=== PATIENT | male | born 1980 | race Caucasian/White ===

== ENCOUNTER 2018-07-09 18:45 | Emergency (ER) | payer BC, SELFPAY ==
[2018-07-09 18:49] VITALS: BP 138/74; PULSE 57; RESP 22; TEMP 36.1; O2SAT 99
[2018-07-09 19:02] VITALS: BP 138/74; PULSE 57; RESP 22; TEMP 36.1; O2SAT 99
--- NOTE | 2018-07-09 19:38 | W.ED.GENAD ---
Discharge Plan Disposition Patient Disposition: HOME Condition: Good Discharge Details Chief Complaint: RashLesion Clinical Impression: Splinter Primary Care Provider: Jojo Elizondo ED Provider: Iraj Carr Home Meds and New Rx's Prescriptions: No Action omeprazole 40 MG capsule,delayed release(DR/EC) 40 mg PO DAILY RF: 0 vitamin B complex 1 EACH tablet 1 ea PO DAILY RF: 0 aspirin 81 MG tablet,delayed release (DR/EC) 81 mg PO DAILY RF: 0 vit d3 1 tab PO DAILY RF: 0 ibuprofen 800 MG tablet 800 mg PO TID PRNQty: 90 RF: 2 atenolol 50 MG tablet 50 mg PO DAILY Qty: 30 RF: 5 multivitamin 1 EACH capsule 1 ea PO DAILY RF: 0 calcium carbonate Tablet 300 mg DAILY Qty: 0 RF: 0 vitamin b12 1,000 MCG Tablet 1,000 mcg PO DAILY Qty: 90 RF: 0 Discharge Instructions Instructions: Soft Tissue Foreign Body (ED) Additional Instructions: Please apply triple antibiotic/bacitracin/neomycin to the red area. Please gently wash it with warm sudsy water 2-3 times per day. If you notice any spreading of the redness, fevers or chills please return immediately. If you notice any worsening of your symptoms, or any new symptoms such as vomiting, diarrhea, fever, chills, shortness of breath, chest pain, numbness, weakness, or fainting , please return immediately to the emergency department for reevaluation. Please follow up with your primary care provider as soon as possible for reassessment and reevaluation. As always, it was a pleasure participating in your medical care today. Referrals: Jojo Elizondo, [employer] [Primary Care Provider] - Medical Decision Making This is a 38-year-old male who presents for evaluation of foreign body in his left anterior inferior abdomen. Physical exam and evaluation and inspection revealed evidence of an injected/implanted splinter. It was easily removed with hemostats. No evidence of any infection or discharge. Triple antibiotic ointment was placed over the lesion. Bandage was placed. No need for antibiotics as there is no signs of infection. Tetanus is up-to-date. Patient will be discharged home. I have extensively reviewed the treatment plan and discharge instructions with the patient and their family. I have addressed all patient concerns at this time. The patient and family was made aware of what symptoms to monitor for that would warrant a return to the emergency department. Discussed the plan with the patient and family, they demonstrate verbal understanding and agreement with our assessment and plan at this time. HPI General Date/Time Provider Initiated Documentation: 07/09/18 18:58. HPI Narrative: This is a 38-year-old male with no significant past medical history who presents for evaluation of a lesion on his left anterior abdomen. He states that earlier this afternoon he noticed something funny on his belly, tried to pick it off but it did not easily come off. He was concerned that it may be a tick, and came into the ER for evaluation. He denies any systemic symptoms or any other symptoms. He denies any pain or rash at the site. He does note that he was moving in his docs yesterday and might have caused some trauma or abrasions to that area. Patient does have a history of tick exposure in the past, for which he did receive antibiotics. Patient denies any recent surgeries, pertinent family history or IV or illicit drug use. Related Data Home Medications Medication Instructions Recorded Confirmed multivitamin 1 ea PO DAILY 01/19/13 07/09/18 omeprazole 40 mg PO DAILY tab-cap 02/28/13 07/09/18 aspirin 81 mg PO DAILY 04/29/13 07/09/18 vitamin B complex 1 ea PO DAILY 04/29/13 07/09/18 Calcium Carbonate 300 mg DAILY #0 02/16/14 07/09/18 Vitamin B12 1,000 mcg PO DAILY #90 02/16/14 07/09/18 Vit D3 1 tab PO DAILY 04/19/15 07/09/18 ibuprofen 800 mg PO TID PRN #90 tab-cap 06/25/17 07/09/18 atenolol 50 mg PO DAILY #30 tab-cap 05/27/18 07/09/18 Previous Rx's Medication Instructions Recorded Calcium Carbonate 300 mg DAILY #0 02/16/14 Vitamin B12 1,000 mcg PO DAILY #90 02/16/14 atenolol 50 mg PO DAILY #30 tab-cap 05/27/18 Allergies Allergy/AdvReac Type Severity Reaction Status Date / Time No Known Allergies Allergy Unverified 07/09/18 18:52 General Stated Complaint: RashLesion GLORIA: 5 Review of Systems Review of Systems All systems reviewed & are unremarkable except as noted in HPI and below PFSH Family History Mother No problems noted. Father Hypertensive disorder, systemic arterial Obesity Medical History Hiatal hernia Social History Smoking/Tobacco Use Status: Former Tobacco Use Surgical History Bariatric Sleeve, [facility] 01/2013 L elbow and shoulder bone spur repair, Kirsty Ventral Hernia repair, [facility] 01/2013 Exam Narrative Exam Narrative: 1.Const: Well-nourished, Well-developed, appearing stated age 2.Eyes: PERRL, no conjunctival injection, and symmetrical lids. 3.ENT: Atraumatic external nose and ears. Moist MM. Neck: Symmetric, trachea midline, No thyromegaly. 4.CVS: +S1/S2, No murmurs or gallops. Peripheral pulses 2+ and equal in all extremities. Brisk capillary refill in all extremities. 5.RESP: Unlabored respiratory effort. Clear to auscultation bilaterally. No wheezes rales or rhonchi 6.GI: Soft, Nontender/Nondistended, No hepatosplenomegaly. No guarding or rebound. 7.MSK: Normocephalic/Atraumatic, Extremities w/o deformity or ttp No cyanosis or clubbing, Normal movement of all extremities 8.Skin: Warm, Dry. Over the patient's left anterior inferior abdomen there is a small lesion bruise and at the center of it appears to be a small foreign body. Inspection with probes and hemostats revealed that there appears to be a injected splinter in that area. It was easily removed with hemostats. No bleeding or other abnormalities. No redness or signs of infection. No discharge. 9.Neuro: gun numberer II-XII grossly intact. Sensation grossly intact, no focal neurologic deficits. 10.Psych: (AAO) x3. Appropriate mood and affect Course Vital Signs Temperature 36.1 C L 07/09/18 18:49 Pulse 57 L 07/09/18 18:49 Respiratory Rate 22 07/09/18 18:49 Blood Pressure 138/74 07/09/18 18:49 Pulse Oximetry 99 07/09/18 18:49 Temperature 36.1 C L 07/09/18 19:02 Temperature Source Skin 07/09/18 18:49 Pulse 57 L 07/09/18 19:02 Respiratory Rate 22 07/09/18 19:02 Respiratory Effort Non-Labored 07/09/18 18:50 Blood Pressure 138/74 10/18 19:02 Blood Pressure Position Sitting 07/09/18 18:49 Pulse Oximetry 99 07/09/18 19:02 Oxygen Delivery Method Room Air 07/09/18 18:49 Oxygen Flow Rate 0 07/09/18 18:49 Pain Level 0 07/09/18 19:02
--- NOTE | 2018-07-09 19:41 | ED.GENADUL_ITS ---
Discharge Plan Disposition Patient Disposition: HOME Condition: Good Discharge Details Chief Complaint: RashLesion Clinical Impression: Splinter Primary Care Provider: Jojo Elizondo ED Provider: Iraj Carr Home Meds and New Rx's Prescriptions: No Action omeprazole 40 MG capsule,delayed release(DR/EC) 40 mg PO DAILY RF: 0 vitamin B complex 1 EACH tablet 1 ea PO DAILY RF: 0 aspirin 81 MG tablet,delayed release (DR/EC) 81 mg PO DAILY RF: 0 vit d3 1 tab PO DAILY RF: 0 ibuprofen 800 MG tablet 800 mg PO TID PRNQty: 90 RF: 2 atenolol 50 MG tablet 50 mg PO DAILY Qty: 30 RF: 5 multivitamin 1 EACH capsule 1 ea PO DAILY RF: 0 calcium carbonate Tablet 300 mg DAILY Qty: 0 RF: 0 vitamin b12 1,000 MCG Tablet 1,000 mcg PO DAILY Qty: 90 RF: 0 Discharge Instructions Instructions: Soft Tissue Foreign Body (ED) Additional Instructions: Please apply triple antibiotic/bacitracin/neomycin to the red area. Please gently wash it with warm sudsy water 2-3 times per day. If you notice any spreading of the redness, fevers or chills please return immediately. If you notice any worsening of your symptoms, or any new symptoms such as vomiting, diarrhea, fever, chills, shortness of breath, chest pain, numbness, weakness, or fainting , please return immediately to the emergency department for reevaluation. Please follow up with your primary care provider as soon as possible for reassessment and reevaluation. As always, it was a pleasure participating in your medical care today. Referrals: Jojo Elizondo, [employer] [Primary Care Provider] - Medical Decision Making This is a 38-year-old male who presents for evaluation of foreign body in his left anterior inferior abdomen. Physical exam and evaluation and inspection revealed evidence of an injected/implanted splinter. It was easily removed with hemostats. No evidence of any infection or discharge. Triple antibiotic ointment was placed over the lesion. Bandage was placed. No need for antibiotics as there is no signs of infection. Tetanus is up-to-date. Patient will be discharged home. I have extensively reviewed the treatment plan and discharge instructions with the patient and their family. I have addressed all patient concerns at this time. The patient and family was made aware of what symptoms to monitor for that would warrant a return to the emergency department. Discussed the plan with the patient and family, they demonstrate verbal understanding and agreement with our assessment and plan at this time. HPI General Date/Time Provider Initiated Documentation: 07/09/18 18:58 . HPI Narrative: This is a 38-year-old male with no significant past medical history who presents for evaluation of a lesion on his left anterior abdomen. He states that earlier this afternoon he noticed something funny on his belly, tried to pick it off but it did not easily come off. He was concerned that it may be a tick, and came into the ER for evaluation. He denies any systemic symptoms or any other symptoms. He denies any pain or rash at the site. He does note that he was moving in his docs yesterday and might have caused some trauma or abrasions to that area. Patient does have a history of tick exposure in the past, for which he did receive antibiotics. Patient denies any recent surgeries, pertinent family history or IV or illicit drug use. Related Data Home Medications Medication Instructions Recorded Confirmed multivitamin 1 ea PO DAILY 01/19/13 07/09/18 omeprazole 40 mg PO DAILY tab-cap 02/28/13 07/09/18 aspirin 81 mg PO DAILY 04/29/13 07/09/18 vitamin B complex 1 ea PO DAILY 04/29/13 07/09/18 Calcium Carbonate 300 mg DAILY #0 02/16/14 07/09/18 Vitamin B12 1,000 mcg PO DAILY #90 02/16/14 07/09/18 Vit D3 1 tab PO DAILY 04/19/15 07/09/18 ibuprofen 800 mg PO TID PRN #90 tab-cap 06/25/17 07/09/18 atenolol 50 mg PO DAILY #30 tab-cap 05/27/18 07/09/18 Previous Rx's Medication Instructions Recorded Calcium Carbonate 300 mg DAILY #0 02/16/14 Vitamin B12 1,000 mcg PO DAILY #90 02/16/14 atenolol 50 mg PO DAILY #30 tab-cap 05/27/18 Allergies Allergy/AdvReac Type Severity Reaction Status Date / Time No Known Allergies Allergy Unverified 07/09/18 18:52 General Stated Complaint: RashLesion GLORIA: 5 Review of Systems Review of Systems All systems reviewed & are unremarkable except as noted in HPI and below PFSH Family History Mother No problems noted. Father Hypertensive disorder, systemic arterial Obesity Medical History Hiatal hernia Social History Smoking/Tobacco Use Status: Former Tobacco Use Surgical History Bariatric Sleeve, [facility] 01/2013 L elbow and shoulder bone spur repair, Kirsty Ventral Hernia repair, [facility] 01/2013 Exam Narrative Exam Narrative: 1.Const: Well-nourished, Well-developed, appearing stated age 2.Eyes: PERRL, no conjunctival injection, and symmetrical lids. 3.ENT: Atraumatic external nose and ears. Moist MM. Neck: Symmetric, trachea midline, No thyromegaly. 4.CVS: +S1/S2, No murmurs or gallops. Peripheral pulses 2+ and equal in all extremities. Brisk capillary refill in all extremities. 5.RESP: Unlabored respiratory effort. Clear to auscultation bilaterally. No wheezes rales or rhonchi 6.GI: Soft, Nontender/Nondistended, No hepatosplenomegaly. No guarding or rebound. 7.MSK: Normocephalic/Atraumatic, Extremities w/o deformity or ttp No cyanosis or clubbing, Normal movement of all extremities 8.Skin: Warm, Dry. Over the patient's left anterior inferior abdomen there is a small lesion bruise and at the center of it appears to be a small foreign body. Inspection with probes and hemostats revealed that there appears to be a injected splinter in that area. It was easily removed with hemostats. No bleeding or other abnormalities. No redness or signs of infection. No discharge. 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 Sensation grossly intact, no focal neurologic deficits. 10.Psych: (AAO) x3. Appropriate mood and affect Course Vital Signs Temperature 36.1 C L 07/09/18 18:49 Pulse 57 L 07/09/18 18:49 Respiratory Rate 22 07/09/18 18:49 Blood Pressure 138/74 07/09/18 18:49 Pulse Oximetry 99 07/09/18 18:49 Temperature 36.1 C L 07/09/18 19:02 Temperature Source Skin 07/09/18 18:49 Pulse 57 L 07/09/18 19:02 Respiratory Rate 22 07/09/18 19:02 Respiratory Effort Non-Labored 07/09/18 18:50 Blood Pressure 138/74 10/18 19:02 Blood Pressure Position Sitting 07/09/18 18:49 Pulse Oximetry 99 07/09/18 19:02 Oxygen Delivery Method Room Air 07/09/18 18:49 Oxygen Flow Rate 0 07/09/18 18:49 Pain Level 0 07/09/18 19:02
== END 2018-07-09 19:02 | disposition home or self-care (01) ==
LOC: ER 19:01
PROVIDERS: Emergency Provider Student in an Organized Health Care Education/Training Program; PCP Nurse Practitioner Family
DX: S30.851A Superficial foreign body of abdominal wall, initial encounter (principal); W45.8XXA Other foreign body or object entering through skin, initial encounter
CPT/HCPCS: 99282

== ENCOUNTER 2018-07-20 09:43 | Outpatient (CLI) | payer BC, SELFPAY ==
[2018-07-20 10:04] LABS: HCT 45.7 % (40.0-50.0); HGB 15.5 g/dL (13.5-17.5); Mean Corp. HGB Concentration 33.9 g/dL (32.0-36.0); Mean Corpuscular Hemoglobin 28.5 pg (27.0-33.0); Mean Platelet Volume 11.9 fL (8.0-11.0); Platelet Count 180 x1000/uL (130-400); RBC 5.44 m/cumm (4.50-6.00); RBC Distribution Width 13.3 % (11.8-14.1); White Blood Cell Count 5.51 k/cumm (4.4-10.8)
[2018-07-20 11:49] LABS: ALT 35 U/L (12-78); AST 17 U/L (15-37); Albumin 4.1 g/dL (3.4-5.0); Alkaline Phosphatase 98 U/L (46-116); Anion Gap 9.2 mmol/L (3-11); BUN 19 mg/dL (7-18); Bilirubin, Total 0.8 mg/dL (0.2-1.0); CO2 27.8 mmol/L (21.0-32.0); CREATININE 0.93 mg/dL (0.70-1.30); Calcium 8.5 mg/dL (8.5-10.1); Chloride 104 mmol/L (98-107); Cholesterol 170 mg/dL (50-200); Glucose 84 mg/dL (70-100); HDL Cholesterol 67 mg/dL (40-60); LDL CHOLESTEROL 97 mg/dL (<100); Potassium 4.3 mmol/L (3.5-5.1); Sodium 141 mmol/L (136-145); Total Protein 7.1 g/dL (6.4-8.2); Triglyceride 49 mg/dL (30-150)
== END 2018-07-20 10:03 ==
PROVIDERS: PCP Nurse Practitioner; Visit Provider Nurse Practitioner
DX: G43.909 Migraine, unspecified, not intractable, without status migrainosus (principal); E66.01 Morbid (severe) obesity due to excess calories
CPT/HCPCS: 36415; 80053; 80061; 83721; 85027; 84443

== ENCOUNTER 2018-07-22 11:24 | Emergency (ER) | payer BC, SELFPAY ==
[2018-07-22] VITALS (54 sets, daily range): BP systolic 115–141; BP diastolic 52–88; PULSE 0–72; RESP 10–30; TEMP 36.7; O2SAT 94–99
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
--- NOTE | 2018-07-22 11:52 | ED.GENADUL_ITS ---
Discharge Plan Disposition Patient Disposition: HOME Condition: Stable Discharge Details Chief Complaint: Chest Pain Clinical Impression: Pneumonia Primary Care Provider: Meche Rey ED Provider: aNbil Bauer Home Meds and New Rx's Prescriptions: New azithromycin 250 mg tablet 250 mg PO DAILY Qty: 6 RF: 0 No Action omeprazole 40 mg capsule,delayed release(DR/EC) 40 mg PO DAILY Qty: 90 RF: 3 ibuprofen 800 mg tablet 800 mg PO TID PRN (Reason: pain) Qty: 90 RF: 3 vitamin B complex 1 EACH tablet 1 ea PO DAILY RF: 0 aspirin 81 MG tablet,delayed release (DR/EC) 81 mg PO DAILY RF: 0 vit d3 1 tab PO DAILY RF: 0 atenolol 50 MG tablet 50 mg PO DAILY Qty: 30 RF: 5 multivitamin 1 EACH capsule 1 ea PO DAILY RF: 0 calcium carbonate tablet 300 mg DAILY Qty: 0 RF: 0 vitamin b12 1,000 MCG tablet 1,000 mcg PO DAILY Qty: 90 RF: 0 Discharge Instructions Instructions: Pneumonia (ED) Stand Alone Forms: Work Release Referrals: [facility] Emergency Dept. [Outside] - Return if symptoms worsen Discharge Data Discharge Date/Time-TO BE ENTERED AT DEPARTURE: 07/22/18 16:58 Medical Decision Making Explained to patient he would be here for awhile for the cardiac work up. Likely pneumonia but will check D-Dimer and BNP to evaluate for possible PE versus heart failure. Patient apprised of normal lab work except elevated D-Dimer. He agreed to CT for PE. Chest x-ray was benign and showed no acute pathology, confirmed by Dr. Soni. First trop was <0.02. Dr. Soni reported CT negative for PE but ground glass appearance which could be suspicious for consolidation. Labs not supportive of pneumonia but patient history does. Patient pending second trop. Apprised him and his of CT results and lab work. At this point he looks ill and I believe the lab work has not caught up. I will treat him for suggestive pneumonia with Zithromax. He and his agree to return if symptoms worsen. We started the Zithromax 500mg tonight. They agreed with POC. I called and talked with Javad. He tells me he has less SOB and able to walk long distances without the SOB. Does report increased runny nose with no fever or chills. He plans to take the rest of the week off. His only complaint is left shoulder pain. He explains he was hit in the left shoulder Sunday night and he ran a chain saw all day Sunday. He tells me his heart burn is gone. He asked about surgery for the left shoulder. He plans to go to [place] to see Dr. Haskins. He declines to go locally, or Dr. Lofton and ask if there is someone else besides him. I gave him Dr. Austin and [place]'s name. He agreed to return to ED if symptoms return or worsens. I advisedd he check in with his PCP and discuss another stress test. Imaging Data Radiologic Study: Imaging: X-Ray (No acute pathology. ) and CT Scan (Mild CHF vs multi- focal pneumonia. No evidence of pulmonary embolic disease. Heart enlarged. ) Radiologist's impression: Normal chest Lab Data Lab results reviewed: Yes I reviewed the patient's lab results. Lab results narrative: All values within acceptable limits except D-Dimer at 824. Troponin <0.02 times two, four hours apart. ECG Data Attestation: I personally reviewed and interpreted this ECG (s) as follows: ( Reviewed and confirmed by Dr. Márquez. No acute ST elevation. There are diffuse nonspecefic T wave abnormality. Rate and Rhythm are normal. ) HPI General Date/Time Provider Initiated Documentation: 07/22/18 11:29 . Limitations to Documentation: no limitations . Information obtained by: patient and old records reviewed . History of Present Illness 38 year old M presents to the emergency department with the chief complaint of SOB with left shoulder pain. , described as mild, with intensity rated at 3. Quality is described as aching, and is localized to the left (shoulder). Patient reports no radiation. Patient started experiencing this day(s) (2-3 ) No relieving factors improve symptom(s), Patient did receive the following treatments prior to arrival, none HPI Narrative: Patient seen by PCP today and PCP sent here for evaluation with concerns of ECG changes, pneumonia versus ACS. PCP reported to me patient c/o of sob and stated the ECG was changed since 2014. Patient did drive himself over to the ED against advisement. 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 He reports his daughter was sick last week as well with similar complaints. This illness began two nights ago with heart burn, fever, sob. His reminds him that he actually c/o cp at that time. He explains that it was more tightness from the sob, and he believed the heart burn was the issue. He is on PPI ever since he had the gastric sleeve surgery, which he lost over 150 lbs. He had missed his dose of PPI that morning. Today he reports SOB, fatigue, and left shoulder pain. Denies CP to me. Related Data Home Medications Medication Instructions Recorded Confirmed multivitamin 1 ea PO DAILY 01/19/13 07/22/18 aspirin 81 mg PO DAILY 04/29/13 07/22/18 vitamin B complex 1 ea PO DAILY 04/29/13 07/22/18 Calcium Carbonate 300 mg DAILY #0 02/16/14 07/22/18 Vitamin B12 1,000 mcg PO DAILY #90 02/16/14 07/22/18 Vit D3 1 tab PO DAILY 04/19/15 07/22/18 atenolol 50 mg PO DAILY #30 tab-cap 05/27/18 07/22/18 ibuprofen 800 mg tablet 800 mg PO TID PRN #90 tab-cap 07/10/18 07/22/18 omeprazole 40 mg capsule,delayed 40 mg PO DAILY #90 tab-cap 07/10/18 07/22/18 release azithromycin 250 mg PO DAILY #6 tab NS 07/22/18 Previous Rx's Medication Instructions Recorded Calcium Carbonate 300 mg DAILY #0 02/16/14 Vitamin B12 1,000 mcg PO DAILY #90 02/16/14 atenolol 50 mg PO DAILY #30 tab-cap 05/27/18 ibuprofen 800 mg tablet 800 mg PO TID PRN #90 tab-cap 07/10/18 omeprazole 40 mg capsule,delayed 40 mg PO DAILY #90 tab-cap 07/10/18 release azithromycin 250 mg PO DAILY #6 tab NS 07/22/18 Allergies Allergy/AdvReac Type Severity Reaction Status Date / Time No Known Allergies Allergy Unverified 07/22/18 11:43 General Stated Complaint: Chest Pain GLORIA: 2 Review of Systems Constitutional Reports as per HPI ENT Reports system reviewed and no additional complaints, except as docu and Reports nasal congestion Cardiovascular Denies chest pain, Reports edema (bilateral ankle swelling at the end of the day ), Reports leg edema and Reports dyspnea Respiratory Reports cough (mild and non productive) and Reports dyspnea Comments: Patient does have CPAP that he utilizes every night. Gastrointestinal Reports system reviewed and no additional complaints, except as docu Genitourinary Reports system reviewed and no additional complaints, except as docu Musculoskeletal Reports system reviewed and no additional complaints, except as docu Exam Const General: cooperative and no acute distress Nutritional Appearance: obese Orientation: alert, awake and oriented x3 HENMT Head: normal to inspection and atraumatic Mouth: oral mucosae normal Eyes General: appearance normal, both eyes and all related structures Neck Neck: normal visual inspection, full ROM and no lymphadenopathy Chest Chest: normal inspection of the chest Resp Effort & Inspection: normal respiratory effort Auscultation: crackles on the left (lower) at the base and in the mid lung reed Cardio Jugular venous pressure: no JVD Palpation: normal PMI Rate: regular rate Rhythm: regular rhythm Heart Sounds: S1 normal, S2 normal and no murmurs GI Inspection: normal to inspection and non-distended Palpation: soft Auscultation: normal bowel sounds Back/Spine/Pelvis Back: no CVA tenderness Cervical Spine: cervical ROM normal Thoracic/Lumbar Spine: thoracic and lumbar spine normal to inspection Skin General skin exam: no rashes or lesions noted Neuro General: alert, awake and oriented x3 Extrem General: full ROM, normal capillary refill and pedal edema bilaterally Left upper extremity: normal to inspection, full ROM and normal capillary refill Psych Appearance: grossly normal Speech and Movement: speech and movement normal Mood: congruent mood Affect: normal affect Attitude: cooperative Thought Process: normal Thought Content: normal Insight: insight good Judgment: judgment good Course Vital Signs Temperature 36.7 C 07/22/18 11:37 Pulse 62 07/22/18 11:37 Respiratory Rate 16 07/22/18 11:37 Blood Pressure 137/65 07/22/18 11:37 Pulse Oximetry 97 07/22/18 11:37 Temperature 36.7 C 07/22/18 11:37 Temperature Source Temporal Artery Scan 07/22/18 11:37 Pulse 62 07/22/18 11:37 Respiratory Rate 16 07/22/18 11:46 Respiratory Effort Non-Labored 07/22/18 11:46 Respiratory Depth Normal 07/22/18 11:46 Respiratory Pattern Normal 07/22/18 11:46 Blood Pressure 137/65 07/22/18 11:37 Blood Pressure Position Supine 07/22/18 11:37 Pulse Oximetry 97 07/22/18 11:37 Oxygen Delivery Method Room Air 07/22/18 11:37 Oxygen Flow Rate 0 07/22/18 11:37 Pain Level 0 07/22/18 11:46
[2018-07-22 12:10] LABS: Abs Immature Grans 0.01 k/cumm (0.0-0.09); Absolute Basophil Count 0.01 k/cumm (0.0-0.2); Absolute Eosinophil Count 0.14 k/cumm (0.0-0.7); Absolute Lymphocyte Count 2.19 k/cumm (1.2-3.4); Absolute Monocyte Count 0.52 k/cumm (0.11-0.7); Absolute Neutrophil Count 3.59 k/cumm (1.2-6.7); Basophils % 0.2; Eosinophils % 2.2; HCT 45.5 % (40.0-50.0); HGB 15.2 g/dL (13.5-17.5); Immature Grans % 0.2; Lymphocytes % 33.9; Mean Corp. HGB Concentration 33.4 g/dL (32.0-36.0); Mean Corpuscular Hemoglobin 28.6 pg (27.0-33.0); Mean Corpuscular Volume 85.7 fL (80-95); Neutrophils % 55.5; Platelet Count 174 x1000/uL (130-400); RBC 5.31 m/cumm (4.50-6.00); RBC Distribution Width 13.8 % (11.8-14.1); White Blood Cell Count 6.46 k/cumm (4.4-10.8)
--- NOTE | 2018-07-22 12:17 | DI.RAD_ITS ---
SYMPTOM/DIAGNOSIS: SOB AND LT SHOULDER PAIN PA AND LATERAL CHEST: There is a marked bi convex thoracolumbar scoliosis. Cardiac size is within normal limits. Lungs appear clear. No pleural effusion is seen. CONCLUSION: No evidence of acute disease.
[2018-07-22 12:43] LABS: D-Dimer 824 ng/mlFEU (<500)
[2018-07-22 12:58] LABS: ALT 30 U/L (12-78); AST 13 U/L (15-37); Albumin 3.7 g/dL (3.4-5.0); Alkaline Phosphatase 88 U/L (46-116); Anion Gap 7.9 mmol/L (3-11); BUN 17 mg/dL (7-18); Bilirubin, Total 0.7 mg/dL (0.2-1.0); CO2 31.1 mmol/L (21.0-32.0); CREATININE 0.92 mg/dL (0.70-1.30); Calcium 8.9 mg/dL (8.5-10.1); Chloride 104 mmol/L (98-107); Glucose 105 mg/dL (70-100); Magnesium 1.8 mg/dL (1.8-2.4); NT-proBNP 114 pg/mL; Potassium 3.8 mmol/L (3.5-5.1); Sodium 143 mmol/L (136-145); Total Protein 7.5 g/dL (6.4-8.2)
[2018-07-22 13:00] LABS: Troponin I < 0.02 ng/mL (0.00-0.06)
--- NOTE | 2018-07-22 13:00 | DI.CT_ITS ---
SYMPTOMS/DIAGNOSIS: SHORTNESS OF BREATH, ELEVATED D DIMER CHEST CTA: CT angiography was performed with multi slice acquisition and multi planar and 3D reconstruction. CT Angiography was performed with intravenous infusion of 100 cc's of Omnipaque 350. Images obtained through the upper abdomen show unremarkable appearance of visualized portions of the liver and spleen. There is a hiatal hernia and there appear to be surgical sutures at the esophageal hiatus. There are patchy ground glass and consolidative opacities in both lungs most prominent in the dependent portions of the lungs. The findings may represent a multi-focal pneumonia vs mild pulmonary edema. The cardiac size is enlarged. There is no evidence of pulmonary embolic disease. No significant abnormality involving the thoracic aorta or great vessels. CONCLUSION: Mild CHF vs multi-focal pneumonia. No evidence of pulmonary embolic disease.
[2018-07-22] MEDS: Omnipaque 350 MG/ML 100 ML BTL IV (14:48)
[2018-07-22 16:11] LABS: Troponin I < 0.02 ng/mL (0.00-0.06)
[2018-07-22] MEDS: Azithromycin 250 MG TAB 500 MG PO (16:51)
== END 2018-07-22 16:58 | disposition home or self-care (01) ==
PROVIDERS: Emergency Provider Nurse Practitioner Family; PCP Nurse Practitioner
DX: J18.9 Pneumonia, unspecified organism (principal); R79.1 Abnormal coagulation profile; I10 Essential (primary) hypertension
CPT/HCPCS: 36415; 71275; 80053; 80076; 93005; 99285; 71046; 83735; 83880; 84484; 85025; 85379; 93010; J3490

== ENCOUNTER 2018-09-28 15:15 | Emergency (ER) | payer BC, SELFPAY ==
[2018-09-28 15:29] VITALS: BP 164/94; PULSE 66; RESP 16; TEMP 36.9; O2SAT 99
--- NOTE | 2018-09-28 15:38 | W.ED.GENAD ---
Discharge Plan Disposition Patient Disposition: HOME Condition: Good Discharge Details Chief Complaint: Cellulitis Clinical Impression: Bursitis, Left arm swelling Primary Care Provider: Meche Rey ED Provider: Iraj Carr Home Meds and New Rx's Prescriptions: New Xarelto 15 mg tablet 15 mg PO BID 21 Days Qty: 42 RF: 0 No Action omeprazole 40 mg capsule,delayed release(DR/EC) 40 mg PO DAILY Qty: 90 RF: 3 ibuprofen 800 mg tablet 800 mg PO TID PRN (Reason: pain) Qty: 90 RF: 3 cephalexin [Keflex] 500 mg capsule 500 mg PO QID Qty: 28 RF: 0 vitamin B complex 1 EACH tablet 1 ea PO DAILY RF: 0 aspirin 81 MG tablet,delayed release (DR/EC) 81 mg PO DAILY RF: 0 vit d3 1 tab PO DAILY RF: 0 atenolol 50 MG tablet 50 mg PO DAILY Qty: 30 RF: 5 multivitamin 1 EACH capsule 1 ea PO DAILY RF: 0 calcium carbonate tablet 300 mg DAILY Qty: 0 RF: 0 vitamin b12 1,000 MCG tablet 1,000 mcg PO DAILY Qty: 90 RF: 0 Discharge Instructions Instructions: Elbow Bursitis (ED), Deep Venous Thrombosis (ED) Additional Instructions: Please continue taking your antibiotic as directed. Please take Tylenol for your pain, keep the area iced regularly on your left elbow, and use an Garry wrap as needed for the swelling. Please avoid Motrin for the time being as it can interact with Xarelto. Please follow-up on Sunday for your ultrasound. If there is no evidence of blood clot you can stop taking the Xarelto. If you notice any worsening of your symptoms, or any new symptoms such as vomiting, diarrhea, fever, chills, shortness of breath, chest pain, numbness, weakness, or fainting , please return immediately to the emergency department for reevaluation. Please follow up with your primary care provider as soon as possible for reassessment and reevaluation. Additionally please follow-up with your orthopedic surgeon. As always, it was a pleasure participating in your medical care today. Referrals: Alan Golden MD [ [facility] STAFF PHYSICIAN] - Medical Decision Making This is a 38-year-old male with a past medical history of calcifications in his elbow, who presents today for evaluation of swelling in his left upper extremity. It is been like this for the last 4 days. He was started on Keflex on an outpatient basis for suspected cellulitis. Physical exam demonstrates notable swelling, as well as the notable chronic calcification. No erythema or redness, no fever or chills. Compartments are soft, no signs of compartment syndrome on exam. Differential includes DVT versus cellulitis versus generalized swelling secondary to injury in the elbow. Unfortunately it is the weekend, we did contact ultrasonography, and Ronald the orthopaedic technologist states that per protocol from Dr. Christianson ultrasound technicians do not come in after hours for upper extremity ultrasounds. We will get an x-ray to rule out an acute process. 8:15 PM Patient's laboratory workup is returned is very reassuring. No white count, no bandemia or significant left shift. ESR is normal, CRP is minimally elevated at 0.81. Laboratory workup is not clinically suggestive of a significant infectious etiology in conjunction with his normal vital signs, and lack of fever. I did contact the orthopedic surgeon Dr. Lofton, and discussed the case with him, after reviewing the images, the case, and the labs as well as describing the patient's physical exam Dr. Lofton feels that it is most likely an olcrenon bursitis. Dr. Lofton thinks it is reasonable to hold the antibiotics at this time however since the patient has already started the prescription I feel that it is reasonable to continue them until course completion. Dr. Lofton recommends Tylenol, Motrin, ice and elevation and follow-up with orthopedics. Patient is requesting to follow-up with Dr. Golden at this time. Unfortunately it is the weekend and we are unable to get ultrasound. We did get a d-dimer and this was elevated at 797. I discussed anticoagulation with the patient and he agrees with anticoagulation at this time. We discussed risks and benefits of using anticoagulation versus holding off, he has accepted the risks and would like to start the blood thinner. We will start the patient on Xarelto, and give him his first dose here. We will schedule him for an ultrasound Sunday morning. I had a long discussion with him regarding safe habits, things from which to avoid for potential bleeding complications, as well as red flags for close follow-up. We will recommend continue Tylenol on an outpatient basis, ice, and Garry wrap. Patient continues to show no significant pain, sensation remains intact for his entire hand left B. Extremity compartments still feels soft. Currently I see no clinical signs or symptoms suggestive of compartment syndrome, septic joint, severe cellulitis. I feel the symptoms are clinically consistent with olcrenon BURSITIS COMPLICATED BY HIS CHRONIC CALCIFICATIONS ON HIS ELBOW. HE HAS NO PAIN IN THE AREA, AND IS ABLE TO TOLERATE FULL RANGE OF MOTION WELL. I have extensively reviewed the treatment plan and discharge instructions with the patient and their family. I have addressed all patient concerns at this time. The patient and family was made aware of what symptoms to monitor for that would warrant a return to the emergency department. Discussed the plan with the patient and family, they demonstrate verbal understanding and agreement with our assessment and plan at this time. FINDINGS: Bones/joints: Next density changes within the distal humerus and proximal ulna and radial with bone fragmentation and destruction. Differential diagnosis includes osteoarticular infection (chronic versus acute on chronic) versus neuropathic arthritis versus chronic posttraumatic osteoarthritis. No acute fracture or dislocation. Soft tissues: Diffuse swelling of the soft tissues of the elbow and proximal forearm. IMPRESSION: 1. Diffuse soft tissue swelling, nonspecific. 2. 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 Differential diagnosis includes infection, chronic post traumatic arthritis versus neuropathic arthritis. Dictated and Authenticated by: Peter Hutton MD. HPI General Date/Time Provider Initiated Documentation: 09/28/18 15:23. HPI Narrative: This is a 38-year-old male with a past medical history of chronic calcifications in his left elbow which she has had surgical management with Dr. Lofton in the past. He states that he regularly developed cellulitis for his left upper and left lower extremity usually every 6 months to a year. The patient states that he noted some mild to moderate swelling for his left upper extremity slightly worsened compared to normal 4 days ago, he was seen by his primary care provider and started on Keflex. He has been taking this as directed for the last 2-3 days. Since then he has noticed a slight gradual worsening in the swelling. He denies any redness, fever or chills. He denies any arm pain, or tingling. He does admit to some mild tightness in his left upper extremity, but has been able to use it to do work including work on his car, and work around the house. Patient has not taken any Tylenol or Motrin. He has not been elevating it a significant amount at night. He is not been using any wrap around the arm. The patient states that his current signs and symptoms are consistent with his previous episodes of cellulitis in the past. He denies any significant changes compared to previous episodes. Patient denies any history of DVT or PE in the past. He is not on any blood thinners. He denies any recent surgeries or procedures. Patient has no other complaints at this time. Past surgical history is positive for removal of some of the calcifications on his left elbow, as well as a gastric banding. He denies any IV or illicit drug use. He denies any pertinent family history. Related Data Home Medications Medication Instructions Recorded Confirmed multivitamin 1 ea PO DAILY 01/19/13 09/28/18 aspirin 81 mg PO DAILY 04/29/13 09/28/18 vitamin B complex 1 ea PO DAILY 04/29/13 09/28/18 Calcium Carbonate 300 mg DAILY #0 02/16/14 09/28/18 Vitamin B12 1,000 mcg PO DAILY #90 02/16/14 09/28/18 Vit D3 1 tab PO DAILY 04/19/15 09/28/18 atenolol 50 mg PO DAILY #30 tab-cap 05/27/18 09/28/18 ibuprofen 800 mg tablet 800 mg PO TID PRN #90 tab-cap 07/10/18 09/28/18 omeprazole 40 mg capsule,delayed 40 mg PO DAILY #90 tab-cap 07/10/18 09/28/18 release cephalexin 500 mg capsule 500 mg PO QID #28 cap 09/25/18 09/28/18 rivaroxaban [Xarelto] 15 mg PO BID 21 Days #42 tab 09/28/18 Previous Rx's Medication Instructions Recorded Calcium Carbonate 300 mg DAILY #0 02/16/14 Vitamin B12 1,000 mcg PO DAILY #90 02/16/14 atenolol 50 mg PO DAILY #30 tab-cap 05/27/18 ibuprofen 800 mg tablet 800 mg PO TID PRN #90 tab-cap 07/10/18 omeprazole 40 mg capsule,delayed 40 mg PO DAILY #90 tab-cap 07/10/18 release cephalexin 500 mg capsule 500 mg PO QID #28 cap 09/25/18 rivaroxaban [Xarelto] 15 mg PO BID 21 Days #42 tab 09/28/18 Allergies Allergy/AdvReac Type Severity Reaction Status Date / Time No Known Allergies Allergy Unverified 09/28/18 15:35 General Stated Complaint: Cellulitis GLORIA: 4 Review of Systems Review of Systems All systems reviewed & are unremarkable except as noted in HPI and below PFSH Social History number of children: 2 Smoking/Tobacco Use Status: Former Tobacco Use alcohol intake: current alcohol intake frequency: other substance use type: does not use Exam Narrative Exam Narrative: 1.Const: Well-nourished, Well-developed, appearing stated age, mildly obese. 2.Eyes: PERRL, no conjunctival injection, and symmetrical lids. 3.ENT: Atraumatic external nose and ears. Moist MM. Neck: Symmetric, trachea midline, No thyromegaly. 4.CVS: +S1/S2, No murmurs or gallops. Peripheral pulses 2+ and equal in all extremities. Brisk capillary refill in all extremities. 5.RESP: Unlabored respiratory effort. Clear to auscultation bilaterally. No wheezes rales or rhonchi 6.GI: Soft, Nontender/Nondistended, No hepatosplenomegaly. No guarding or rebound. 7.MSK: Normocephalic/Atraumatic, No cyanosis or clubbing, compartments are soft on my examination. No signs of compartment syndrome. Radial pulse +2, capillary refill is 2 seconds bilaterally. Both hands are slightly more violaceous in color, but no evidence of significant cyanosis. Notably large calcification in the patient's left elbow. Patient has some reduction in range of motion secondary to the swelling. No pain though. Normal flexion extension of the wrist as well as pronation supination. Benign flexion extension of the elbow with good range of motion. No redness, warmth or significant erythema. Sensation is present, including two-point discrimination in the hand. 8.Skin: Warm, Dry. No rashes or lesions. 9.Neuro: pediatric physiatrist II-XII grossly intact. Sensation grossly intact, no focal neurologic deficits. 10.Psych: (AAO) x3. Appropriate mood and affect Course Vital Signs Temperature 36.9 C 09/28/18 15:29 Pulse 66 09/28/18 15:29 Respiratory Rate 16 09/28/18 15:29 Blood Pressure 164/94 H 09/28/18 15:29 Pulse Oximetry 99 09/28/18 15:29 Temperature 36.9 C 09/28/18 15:29 Temperature Source Skin 09/28/18 15:29 Pulse 66 09/28/18 15:29 Respiratory Rate 16 09/28/18 15:29 Respiratory Effort Non-Labored 09/28/18 15:31 Blood Pressure 164/94 H 09/28/18 15:29 Pulse Oximetry 99 09/28/18 15:29
[2018-09-28 15:39] VITALS: TEMP 36.5
--- NOTE | 2018-09-28 15:56 | DI.RAD_ITS ---
SYMPTOM/DIAGNOSIS: NOTABLE LEFT ELBOW SWELLING LEFT ELBOW: 09/28 The examination is compared with previous elbow radiographs of 07/2018. There has been marked increase in severity of bony deformity of the elbow consistent with severe end stage hypertrophic arthritis, etiology uncertain. Marked destruction and fragmentation is present involving the bones of the elbow. Infection is not excluded as part of the differential diagnosis but the findings do appear largely to be chronic. Please correlate clinically.
--- NOTE | 2018-09-28 16:13 | DI.VRAD_ITS ---
EXAM: XR Left Elbow Complete, 3 or more Views EXAM DATE/TIME: 09/28/2018 3:39 PM CLINICAL HISTORY: 38 years old, male; Condition or disease; Cellulitis; Elbow; Left; Patient HX: Notable left elbow swelling. TECHNIQUE: XR Left elbow, 3 or more views. COMPARISON: No relevant prior studies available. FINDINGS: Bones/joints: Next density changes within the distal humerus and proximal ulna and radial with bone fragmentation and destruction. Differential diagnosis includes osteoarticular infection (chronic versus acute on chronic) versus neuropathic arthritis versus chronic posttraumatic osteoarthritis. No acute fracture or dislocation. Soft tissues: Diffuse swelling of the soft tissues of the elbow and proximal forearm. IMPRESSION: 1. Diffuse soft tissue swelling, nonspecific. 2. 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 Differential diagnosis includes infection, chronic post traumatic arthritis versus neuropathic arthritis. Dictated and Authenticated by: Peter Hutton MD. Ordering:SELENA Galo MD
[2018-09-28 18:24] LABS: Abs Immature Grans 0.01 k/cumm (0.0-0.09); Absolute Basophil Count 0.04 k/cumm (0.0-0.2); Absolute Lymphocyte Count 2.73 k/cumm (1.2-3.4); Absolute Monocyte Count 0.57 k/cumm (0.11-0.7); Absolute Neutrophil Count 4.32 k/cumm (1.2-6.7); Basophils % 0.5; Eosinophils % 1.3; HCT 48.6 % (40.0-50.0); HGB 16.6 g/dL (13.5-17.5); Immature Grans % 0.1; Lymphocytes % 35.1; Mean Corp. HGB Concentration 34.2 g/dL (32.0-36.0); Monocytes % 7.3; Neutrophils % 55.7; Platelet Count 208 x1000/uL (130-400); RBC 5.72 m/cumm (4.50-6.00); RBC Distribution Width 13.1 % (11.8-14.1); White Blood Cell Count 7.77 k/cumm (4.4-10.8)
--- NOTE | 2018-09-28 18:33 | NUR.NOTE ---
D/c paperwork documentation charted in error. Pt. is still in the department. MD Carr is currently at the bedside attempting to collect labs.
[2018-09-28 18:34] LABS: C-Reactive Protein 0.81 mg/dL (0.0-0.3)
[2018-09-28 18:37] LABS: ALT 32 U/L (12-78); AST 28 U/L (15-37); Albumin 4.2 g/dL (3.4-5.0); Alkaline Phosphatase 100 U/L (46-116); Anion Gap 8.4 mmol/L (3-11); BUN 21 mg/dL (7-18); Bilirubin, Total 0.5 mg/dL (0.2-1.0); CO2 29.6 mmol/L (21.0-32.0); CREATININE 0.81 mg/dL (0.70-1.30); Calcium 9.3 mg/dL (8.5-10.1); Chloride 103 mmol/L (98-107); Glucose 71 mg/dL (70-100); Potassium 4.4 mmol/L (3.5-5.1); Sodium 141 mmol/L (136-145); Total Protein 8.1 g/dL (6.4-8.2)
[2018-09-28 19:05] VITALS: BP 133/75; PULSE 59; RESP 16; TEMP 36.6; O2SAT 100
[2018-09-28 19:36] LABS: D-Dimer 797 ng/mlFEU (<500)
[2018-09-28 19:41] LABS: ESR 6 MM/HR (0-15)
[2018-09-28 20:30] VITALS: PULSE 60; RESP 18; TEMP 37.2; O2SAT 99
[2018-09-28] MEDS: Rivaroxaban 15 MG TABLET PO (20:36)
== END 2018-09-28 20:40 | disposition home or self-care (01) ==
PROVIDERS: Emergency Provider Student in an Organized Health Care Education/Training Program; PCP Nurse Practitioner
DX: M70.22 Olecranon bursitis, left elbow (principal); R60.0 Localized edema; I10 Essential (primary) hypertension
CPT/HCPCS: 80053; 85652; 99283; 73080; 85025; 85379; 86140

== ENCOUNTER 2018-09-30 00:47 | Outpatient (CLI) | payer BC, SELFPAY ==
--- NOTE | 2018-09-30 08:35 | DI.US_ITS ---
SYMPTOM/DIAGNOSIS: CHRONIC 1 YEAR CALF PAIN DUPLEX VENOUS ULTRASOUND LEFT LOWER EXTREMITY: 09/30 Duplex evaluation of the deep venous system was performed according to the usual protocol. The deep veins are freely compressible throughout to the level of the popliteal veins. There is normal doppler flow visible throughout and there is excellent flow augmentation with manual calf compression. CONCLUSION: No evidence of deep venous thrombosis.
--- NOTE | 2018-09-30 08:36 | DI.US_ITS ---
SYMPTOM/DIAGNOSIS: SWELLING LT ARM DUPLEX VENOUS ULTRASOUND LEFT UPPER EXTREMITY: 09/30 Duplex evaluation deep venous system of the left upper extremity was performed. No evidence of deep venous thrombosis. Normal compression and color flow in visualized portions of the jugular, subclavian, axillary and basilic veins as well as brachial and cephalic veins. CONCLUSION: Negative left upper extremity venous ultrasound.
== END 2018-09-30 01:07 ==
PROVIDERS: PCP Nurse Practitioner; Visit Provider Student in an Organized Health Care Education/Training Program
DX: M79.662 Pain in left lower leg (principal); R22.32 Localized swelling, mass and lump, left upper limb; M79.89 Other specified soft tissue disorders
CPT/HCPCS: 93971

== ENCOUNTER 2018-09-30 09:40 | Emergency (ER) | payer BC, SELFPAY ==
[2018-09-30 09:45] VITALS: BP 135/83; PULSE 57; RESP 16; TEMP 36.7; O2SAT 97
--- NOTE | 2018-09-30 10:28 | W.ED.GENAD ---
Discharge Plan Disposition Patient Disposition: HOME Condition: Stable Discharge Details Chief Complaint: Recheck Clinical Impression: Swelling of arm Primary Care Provider: Meche Rey ED Provider: Amy Arboleda Home Meds and New Rx's Prescriptions: New ibuprofen 800 mg tablet 800 mg PO TID PRN (Reason: pain) Qty: 20 RF: 0 Continued omeprazole 40 mg capsule,delayed release(DR/EC) 40 mg PO DAILY Qty: 90 RF: 3 ibuprofen 800 mg tablet 800 mg PO TID PRN (Reason: pain) Qty: 90 RF: 3 cephalexin [Keflex] 500 mg capsule 500 mg PO QID Qty: 28 RF: 0 vitamin B complex 1 EACH tablet 1 ea PO DAILY RF: 0 aspirin 81 MG tablet,delayed release (DR/EC) 81 mg PO DAILY RF: 0 vit d3 1 tab PO DAILY RF: 0 atenolol 50 MG tablet 50 mg PO DAILY Qty: 30 RF: 5 multivitamin 1 EACH capsule 1 ea PO DAILY RF: 0 calcium carbonate tablet 300 mg DAILY Qty: 0 RF: 0 vitamin b12 1,000 MCG tablet 1,000 mcg PO DAILY Qty: 90 RF: 0 Xarelto 15 mg tablet 15 mg PO BID 21 Days Qty: 42 RF: 0 Discharge Instructions Instructions: Elbow Bursitis Exercises (GEN), Elbow Bursitis (ED) Additional Instructions: Stop Xarelto May begin ibuprofen as prescribed tomorrow. New may augment this with Tylenol as previously advised. Encourage rest, ice, elevation. Please contact her primary care today to discuss referral to orthopedic as preferred. If you develop redness, warmth, increased swelling, fevers or chills or other new/worsening symptoms please seek care urgently once again. Referrals: Meche Rey, RYAN [Primary Care Provider] - Discharge Data Discharge Date/Time-TO BE ENTERED AT DEPARTURE: 09/30/18 11:52 Medical Decision Making Patient is a 38-year-old male presenting today with chief complaint of left elbow pain. He reports that he has had swelling in the left elbow for the past several years. Did have surgical intervention on the left elbow to debride calcific areas of tendinitis. Patient was seen here 2 days ago at which time laboratory evaluation was performed. Patient was noted to have an elevated d-dimer. Patient was started prophylactically on Xarelto and referred for ultrasound this morning. Patient underwent ultrasound, I discussed the findings with the radiologist who advised that there is no findings to suggest blood clot at this time. Advised patient that he may stop the Xarelto at this time. He has been taking the antibiotics as prescribed last week by his primary care. Feels that overall he is much improved. He reports when he was seen over the weekend, he was unable to touch his nose secondary to the limited range of motion of his elbow. He notes that the swelling in his hand as well as the range of motion of his elbow are greatly improved. On exam, patient has a notable swollen left elbow. He reports that this is how his elbow typically looks. No swelling is noted in the hand. He has 2+ distal pulses. He is able to flex to 90 degrees. He is lacking approximately 10 degrees and full extension of the elbow. No erythema, warmth or drainage. The patient was seen 2 days ago, Dr. Carr contacted Dr. Lofton in consult who advised this is likely olecranon bursitis. I discussed this with the patient who is aware of the diagnosis. He would like to follow-up with Dr. Falk at the [facility]. He will contact his primary care for referral. I encouraged rest, ice, elevation. Advised he may begin taking anti-inflammatory starting tomorrow as he did take the Xarelto this morning. I advised that he seek care with any new or worsening symptoms. All of his questions and concerns were addressed and he is in agreement this plan HPI General Mode of arrival: ambulatory. Date/Time Provider Initiated Documentation: 09/30/18 10:03. Limitations to Documentation: no limitations. Information obtained by: patient. History of Present Illness 38 year old M presents to the emergency department with the chief complaint of left elbow pain, described as mild and similar to prior episodes, Quality is described as aching, and is localized to the left and upper extremity. Patient reports no radiation. Patient started experiencing this year(s) and it has been intermittent and now resolved. Immobilization improves symptom(s), Movement worsens symptoms . Patient notes denies chest pain, cough, fever/chills, rash and weakness. Patient did receive the following treatments prior to arrival, other (abx and anticoagulation) Related Data Home Medications Medication Instructions Recorded Confirmed multivitamin 1 ea PO DAILY 01/19/13 09/30/18 aspirin 81 mg PO DAILY 04/29/13 09/30/18 vitamin B complex 1 ea PO DAILY 04/29/13 09/30/18 Calcium Carbonate 300 mg DAILY #0 02/16/14 09/30/18 Vitamin B12 1,000 mcg PO DAILY #90 02/16/14 09/30/18 Vit D3 1 tab PO DAILY 04/19/15 09/30/18 atenolol 50 mg PO DAILY #30 tab-cap 05/27/18 09/30/18 ibuprofen 800 mg tablet 800 mg PO TID PRN #90 tab-cap 07/10/18 09/30/18 omeprazole 40 mg capsule,delayed 40 mg PO DAILY #90 tab-cap 07/10/18 09/30/18 release cephalexin 500 mg capsule 500 mg PO QID #28 cap 09/25/18 09/30/18 Xarelto 15 mg PO BID 21 Days #42 tab 09/28/18 09/30/18 ibuprofen 800 mg PO TID PRN #20 tab 09/30/18 Previous Rx's Medication Instructions Recorded Calcium Carbonate 300 mg DAILY #0 02/16/14 Vitamin B12 1,000 mcg PO DAILY #90 02/16/14 atenolol 50 mg PO DAILY #30 tab-cap 05/27/18 ibuprofen 800 mg tablet 800 mg PO TID PRN #90 tab-cap 07/10/18 omeprazole 40 mg capsule,delayed 40 mg PO DAILY #90 tab-cap 07/10/18 release cephalexin 500 mg capsule 500 mg PO QID #28 cap 09/25/18 Xarelto 15 mg PO BID 21 Days #42 tab 09/28/18 ibuprofen 800 mg PO TID PRN #20 tab 09/30/18 Allergies Allergy/AdvReac Type Severity Reaction Status Date / Time No Known Allergies Allergy Unverified 09/30/18 09:49 General Stated Complaint: Recheck GLORIA: 5 Review of Systems Constitutional Reports as per HPI, Denies chills, Denies fever(s), Denies headache(s) and Denies weakness ENT Denies headache(s) Cardiovascular Reports as per HPI Respiratory Reports as per HPI and Denies cough Musculoskeletal Reports as per HPI, Denies abnormal gait, Reports joint swelling, Reports limited range of motion and Reports stiffness Integumentary/Breasts Reports as per HPI, Denies rash and Denies wounds Neurologic Denies abnormal gait, Denies headache(s) and Denies weakness [facility] Medical History Hiatal hernia Surgical History Bariatric Sleeve, [facility] 01/2013 L elbow and shoulder bone spur repair, Kirsty Ventral Hernia repair, [facility] 01/2013 Social History number of children: 2 Smoking/Tobacco Use Status: Former Tobacco Use alcohol intake: current alcohol intake frequency: other substance use type: does not use Exam Const General: cooperative, healthy appearing, comfortable, no acute distress, well developed and well groomed Nutritional Appearance: well nourished and overweight Orientation: alert and awake Resp Effort & Inspection: normal respiratory effort, able to speak in complete sentences and no respiratory distress Cardio Rate: regular rate Rhythm: regular rhythm Skin General skin exam: no rashes or lesions noted Lesions: no lesions Rashes: no rashes Trauma: no lacerations or abrasions Neuro General: alert and awake Cognition: normal cognition Speech: speech normal Gait: normal gait Motor: muscle tone normal throughout Sensory Exam: no sensory deficits noted Extrem Left upper extremity: normal capillary refill, elbow/forearm Details: swelling and distal pulses intact; no tenderness, ROM abnormal, no unusual warmth, no abrasions, no lacerations and no ecchymosis, wrist Details: normal to inspection and normal ROM; no tenderness and no swelling and 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); abnormal to inspection, ROM limited (limited ROM of elbow, flexion to 90, extension 15) and joint enlargement noted (swelling to left elbow) Psych Appearance: grossly normal and well kempt Mental Status: mental status grossly normal Speech and Movement: speech and movement normal Course Vital Signs Temperature 36.7 C 09/30/18 09:45 Pulse 57 L 09/30/18 09:45 Respiratory Rate 16 09/30/18 09:45 Blood Pressure 135/83 09/30/18 09:45 Pulse Oximetry 97 09/30/18 09:45 Temperature 36.7 C 09/30/18 09:45 Temperature Source Temporal Artery Scan 09/30/18 09:45 Pulse 57 L 09/30/18 09:45 Respiratory Rate 16 09/30/18 09:45 Blood Pressure 135/83 09/30/18 09:45 Blood Pressure Position Sitting 09/30/18 09:45 Pulse Oximetry 97 09/30/18 09:45 Oxygen Delivery Method Room Air 09/30/18 09:45 Oxygen Flow Rate 0 09/30/18 09:45 Pain Level 0 09/30/18 09:45
--- NOTE | 2018-09-30 10:31 | ED.GENADUL_ITS ---
Discharge Plan Disposition Patient Disposition: HOME Condition: Stable Discharge Details Chief Complaint: Recheck Clinical Impression: Swelling of arm Primary Care Provider: Meche Rey ED Provider: Amy Arboleda Home Meds and New Rx's Prescriptions: New ibuprofen 800 mg tablet 800 mg PO TID PRN (Reason: pain) Qty: 20 RF: 0 Continued omeprazole 40 mg capsule,delayed release(DR/EC) 40 mg PO DAILY Qty: 90 RF: 3 ibuprofen 800 mg tablet 800 mg PO TID PRN (Reason: pain) Qty: 90 RF: 3 cephalexin [Keflex] 500 mg capsule 500 mg PO QID Qty: 28 RF: 0 vitamin B complex 1 EACH tablet 1 ea PO DAILY RF: 0 aspirin 81 MG tablet,delayed release (DR/EC) 81 mg PO DAILY RF: 0 vit d3 1 tab PO DAILY RF: 0 atenolol 50 MG tablet 50 mg PO DAILY Qty: 30 RF: 5 multivitamin 1 EACH capsule 1 ea PO DAILY RF: 0 calcium carbonate tablet 300 mg DAILY Qty: 0 RF: 0 vitamin b12 1,000 MCG tablet 1,000 mcg PO DAILY Qty: 90 RF: 0 Xarelto 15 mg tablet 15 mg PO BID 21 Days Qty: 42 RF: 0 Discharge Instructions Instructions: Elbow Bursitis Exercises (GEN), Elbow Bursitis (ED) Additional Instructions: Stop Xarelto May begin ibuprofen as prescribed tomorrow. New may augment this with Tylenol as previously advised. Encourage rest, ice, elevation. Please contact her primary care today to discuss referral to orthopedic as preferred. If you develop redness, warmth, increased swelling, fevers or chills or other new/worsening symptoms please seek care urgently once again. Referrals: Meche Rey, RYAN [Primary Care Provider] - Discharge Data Discharge Date/Time-TO BE ENTERED AT DEPARTURE: 09/30/18 11:52 Medical Decision Making Patient is a 38-year-old male presenting today with chief complaint of left elbow pain. He reports that he has had swelling in the left elbow for the past several years. Did have surgical intervention on the left elbow to debride calcific areas of tendinitis. Patient was seen here 2 days ago at which time laboratory evaluation was performed. Patient was noted to have an elevated d- dimer. Patient was started prophylactically on Xarelto and referred for ultrasound this morning. Patient underwent ultrasound, I discussed the findings with the radiologist who advised that there is no findings to suggest blood clot at this time. Advised patient that he may stop the Xarelto at this time. He has been taking the antibiotics as prescribed last week by his primary care. Feels that overall he is much improved. He reports when he was seen over the weekend, he was unable to touch his nose secondary to the limited range of motion of his elbow. He notes that the swelling in his hand as well as the range of motion of his elbow are greatly improved. On exam, patient has a notable swollen left elbow. He reports that this is how his elbow typically looks. No swelling is noted in the hand. He has 2+ distal pulses. He is able to flex to 90 degrees. He is lacking approximately 10 degrees and full extension of the elbow. No erythema, warmth or drainage. The patient was seen 2 days ago, Dr. Carr contacted Dr. Lofton in consult who advised this is likely olecranon bursitis. I discussed this with the patient who is aware of the diagnosis. He would like to follow-up with Dr. Falk at the [facility]. He will contact his primary care for referral. I encouraged rest, ice, elevation. Advised he may begin taking anti-inflammatory starting tomorrow as he did take the Xarelto this morning. I advised that he seek care with any new or worsening symptoms. All of his questions and concerns were addressed and he is in agreement this plan HPI General Mode of arrival: ambulatory . Date/Time Provider Initiated Documentation: 09/30/18 10:03 . Limitations to Documentation: no limitations . Information obtained by: patient . History of Present Illness 38 year old M presents to the emergency department with the chief complaint of left elbow pain, described as mild and similar to prior episodes, Quality is described as aching, and is localized to the left and upper extremity. Patient reports no radiation. Patient started experiencing this year(s) and it has been intermittent and now resolved. Immobilization improves symptom(s), Movement worsens symptoms . Patient notes denies chest pain, cough, fever/chills, rash and weakness. Patient did receive the following treatments prior to arrival, other (abx and anticoagulation) Related Data Home Medications Medication Instructions Recorded Confirmed multivitamin 1 ea PO DAILY 01/19/13 09/30/18 aspirin 81 mg PO DAILY 04/29/13 09/30/18 vitamin B complex 1 ea PO DAILY 04/29/13 09/30/18 Calcium Carbonate 300 mg DAILY #0 02/16/14 09/30/18 Vitamin B12 1,000 mcg PO DAILY #90 02/16/14 09/30/18 Vit D3 1 tab PO DAILY 04/19/15 09/30/18 atenolol 50 mg PO DAILY #30 tab-cap 05/27/18 09/30/18 ibuprofen 800 mg tablet 800 mg PO TID PRN #90 tab-cap 07/10/18 09/30/18 omeprazole 40 mg capsule,delayed 40 mg PO DAILY #90 tab-cap 07/10/18 09/30/18 release cephalexin 500 mg capsule 500 mg PO QID #28 cap 09/25/18 09/30/18 Xarelto 15 mg PO BID 21 Days #42 tab 09/28/18 09/30/18 ibuprofen 800 mg PO TID PRN #20 tab 09/30/18 Previous Rx's Medication Instructions Recorded Calcium Carbonate 300 mg DAILY #0 02/16/14 Vitamin B12 1,000 mcg PO DAILY #90 02/16/14 atenolol 50 mg PO DAILY #30 tab-cap 05/27/18 ibuprofen 800 mg tablet 800 mg PO TID PRN #90 tab-cap 07/10/18 omeprazole 40 mg capsule,delayed 40 mg PO DAILY #90 tab-cap 07/10/18 release cephalexin 500 mg capsule 500 mg PO QID #28 cap 09/25/18 Xarelto 15 mg PO BID 21 Days #42 tab 09/28/18 ibuprofen 800 mg PO TID PRN #20 tab 09/30/18 Allergies Allergy/AdvReac Type Severity Reaction Status Date / Time No Known Allergies Allergy Unverified 09/30/18 09:49 General Stated Complaint: Recheck GLORIA: 5 Review of Systems Constitutional Reports as per HPI, Denies chills, Denies fever(s), Denies headache(s) and Denies weakness ENT Denies headache(s) Cardiovascular Reports as per HPI Respiratory Reports as per HPI and Denies cough Musculoskeletal Reports as per HPI, Denies abnormal gait, Reports joint swelling, Reports limited range of motion and Reports stiffness Integumentary/Breasts Reports as per HPI, Denies rash and Denies wounds Neurologic Denies abnormal gait, Denies headache(s) and Denies weakness [facility] Medical History Hiatal hernia Surgical History Bariatric Sleeve, [facility] 01/2013 L elbow and shoulder bone spur repair, Kirsty Ventral Hernia repair, [facility] 01/2013 Social History number of children: 2 Smoking/Tobacco Use Status: Former Tobacco Use alcohol intake: current alcohol intake frequency: other substance use type: does not use Exam Const General: cooperative, healthy appearing, comfortable, no acute distress, well developed and well groomed Nutritional Appearance: well nourished and overweight Orientation: alert and awake Resp Effort & Inspection: normal respiratory effort, able to speak in complete sentences and no respiratory distress Cardio Rate: regular rate Rhythm: regular rhythm Skin General skin exam: no rashes or lesions noted Lesions: no lesions Rashes: no rashes Trauma: no lacerations or abrasions Neuro General: alert and awake Cognition: normal cognition Speech: speech normal Gait: normal gait Motor: muscle tone normal throughout Sensory Exam: no sensory deficits noted Extrem Left upper extremity: normal capillary refill, elbow/forearm Details: swelling and distal pulses intact; no tenderness, ROM abnormal, no unusual warmth, no abrasions, no lacerations and no ecchymosis, wrist Details: normal to inspection and normal ROM; no tenderness and no swelling and hand (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); abnormal to inspection, ROM limited (limited ROM of elbow, flexion to 90, extension 15) and joint enlargement noted (swelling to left elbow) Psych Appearance: grossly normal and well kempt Mental Status: mental status grossly normal Speech and Movement: speech and movement normal Course Vital Signs Temperature 36.7 C 09/30/18 09:45 Pulse 57 L 09/30/18 09:45 Respiratory Rate 16 09/30/18 09:45 Blood Pressure 135/83 09/30/18 09:45 Pulse Oximetry 97 09/30/18 09:45 Temperature 36.7 C 09/30/18 09:45 Temperature Source Temporal Artery Scan 09/30/18 09:45 Pulse 57 L 09/30/18 09:45 Respiratory Rate 16 09/30/18 09:45 Blood Pressure 135/83 09/30/18 09:45 Blood Pressure Position Sitting 09/30/18 09:45 Pulse Oximetry 97 09/30/18 09:45 Oxygen Delivery Method Room Air 09/30/18 09:45 Oxygen Flow Rate 0 09/30/18 09:45 Pain Level 0 09/30/18 09:45
--- NOTE | 2018-09-30 10:52 | NUR.NOTE ---
patient received discharge and follow up instruction Nursing Note:
== END 2018-09-30 11:52 | disposition home or self-care (01) ==
PROVIDERS: Emergency Provider Physician Assistant; PCP Nurse Practitioner
DX: R22.32 Localized swelling, mass and lump, left upper limb (principal)
CPT/HCPCS: 99282

== ENCOUNTER 2018-11-16 00:10 | Outpatient (CLI) | payer BC, SELFPAY ==
[2018-11-16 10:50] LABS: HCT 46.8 % (40.0-50.0); HGB 15.5 g/dL (13.5-17.5); Mean Corp. HGB Concentration 33.1 g/dL (32.0-36.0); Mean Corpuscular Hemoglobin 28.1 pg (27.0-33.0); Mean Corpuscular Volume 84.8 fL (80-95); Platelet Count 191 x1000/uL (130-400); RBC 5.52 m/cumm (4.50-6.00); RBC Distribution Width 13.1 % (11.8-14.1); White Blood Cell Count 5.52 k/cumm (4.4-10.8)
[2018-11-16 11:05] LABS: ALT 39 U/L (12-78); AST 24 U/L (15-37); Albumin 3.8 g/dL (3.4-5.0); Alkaline Phosphatase 97 U/L (46-116); Anion Gap 8.4 mmol/L (3-11); BUN 22 mg/dL (7-18); Bilirubin, Total 0.7 mg/dL (0.2-1.0); CO2 28.6 mmol/L (21.0-32.0); CREATININE 0.92 mg/dL (0.70-1.30); Calcium 8.8 mg/dL (8.5-10.1); Chloride 104 mmol/L (98-107); Glucose 80 mg/dL (70-100); Potassium 3.7 mmol/L (3.5-5.1); Sodium 141 mmol/L (136-145); Total Protein 7.5 g/dL (6.4-8.2)
== END 2018-11-16 00:30 ==
PROVIDERS: PCP Nurse Practitioner; Visit Provider Nurse Practitioner
DX: R10.11 Right upper quadrant pain (principal); R10.13 Epigastric pain
CPT/HCPCS: 80053; 85027

== ENCOUNTER 2018-11-22 00:36 | Outpatient (CLI) | payer BC, SELFPAY ==
--- NOTE | 2018-11-22 06:58 | DI.US_ITS ---
SYMPTOM/DIAGNOSIS: EPIGASTRIC PAIN, RUQ PAIN, R10.11. R10.13 ABDOMEN ULTRASOUND: Routine examination was performed. The aorta and IVC are unremarkable. The liver is normal in size. No hepatic mass is seen. The gallbladder is unremarkable. The common duct is within normal limits at .5 cm. The pancreas has a normal appearance. The spleen is mildly enlarged measuring 14.4 cm. in length. The kidneys are unremarkable. The patient reportedly has an umbilical hernia. This was not well visualized on the current ultrasound. If further evaluation is warranted, a CT scan may be obtained. IMPRESSION: Negative abdominal ultrasound.
== END 2018-11-22 00:56 ==
PROVIDERS: PCP Nurse Practitioner; Visit Provider Nurse Practitioner
DX: R10.11 Right upper quadrant pain (principal); R10.13 Epigastric pain; R16.1 Splenomegaly, not elsewhere classified
CPT/HCPCS: 76700

== ENCOUNTER 2018-11-28 00:03 | Outpatient (CLI) | payer BC, SELFPAY ==
--- NOTE | 2018-11-28 11:30 | ETT_ITS ---
*[facility]* *[facility]* [address] [place] [address] Stress Electrocardiography Ken protocol Date of study: 11/28/2018 *PATIENT PRESENTATION* Height: 185.4cm (73in) Blood Pressure: Weight: 145.5kg (320lb) BSA: 2.8m^2 Referring physician: Meche Rey Ordering physician: Meche Rey Impressions: - Abnormal study , ST depressions without angina. - Good functional capacity. 11 METS. Summary: 1. Stress: The target heart rate was achieved. Recommendations: Suggest getting exercise perfusion study for further risk stratification. Indication: R07.9. History: REASON FOR TESTING: PATIENT HAS NOT FELT WELL SINCE JULY 2018. HE REPORTS INTERMITTENT LEFT SIDED AXILLA/SCAPULA ICY/HOT DISCOMFORT (RATED 7/10) WHICH OCCASIONALLY RADIATES TO RIGHT SHOULDER. HE STATES HE HAS HAD THIS DISCOMFORT FOR A FEW YEARS NOW, BUT HAS GOTTEN WORSE SINCE AUGUST 2018. TODAY HE REPORTS HAVING AXILLA/SCAPULA ICY/HOT (RATED 5/10) WHICH IS RADIATING TO HIS RIGHT SHOULDER. SIGNIFICANT PAST MEDICAL HISTORY: GERD, RAJEEV, SURGERY OF FOR REMOVAL OF CALCIUM DEPOSITS IN LEFT ARM IN 2006. SMOKING STATUS: QUIT 2003. PREVIOUSLY SMOKED INTERMITTENTLY FOR YEARS. EXERCISE ROUTINE: DAILY ADL'S. 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 Risk factors: Hypertension. Obesity. Cholesterol: 170mg/dl. HDL: 67mg/dl. LDL: 97mg/dl. Triglycerides: 49mg/dl. ALLERGIES: NO KNOWN MEDICATION ALLERGIES. MEDICATIONS: MULTIVITAMIN DAILY, CALCIUM CARBONATE 300 MG DAILY, VITAMIN B12 1000 MCG DAILY, VITAMIN D 400 UNITS DAILY, ATENOLOL 50 MG DAILY, OMEPRAZOLE 40 MG DAILY, IBUPROFEN 800 MG PRN. Protocol: Ken protocol. Baseline ECG: SINUS RHYTHM. HR 70. FLATTENED T WAVES IN INFERIOR LEADS. Stress protocol: + +---+ + !Stage !HR !BP (mmHg) ! + +---+ + !Baseline supine !70 !142/90 (107)! + +---+ + !Baseline standing !75 !148/92 (111)! + +---+ + !Stage I; 1.7mph, 10degrees; 3 min !125!148/92 (111)! + +---+ + !Stage II; 2.5mph, 12degrees; 3 min !143!160/90 (113)! + +---+ + !Stage III; 3.4mph, 14degrees; 3 min!143!180/90 (120)! + +---+ + !Stage IV; 4.2mph, 16degrees; 3 min !160!190/90 (123)! + +---+ + !Peak stress !174! ! + +---+ + !Recovery; 1 min !145!190/80 (117)! + +---+ + !Recovery; 3 min !102!140/86 (104)! + +---+ + !Recovery; 6 min !100!130/82 (98) ! + +---+ + !Recovery; 9 min !98 !134/84 (101)! + +---+ + * Stress results: STRESS TEST ENDED IN 10 MINUTES 3 SECONDS DUE TO LEG FATIGUE. NORMAL HEART RATE AND BLOOD PRESSURE RESPONSE TO EXERCISE. MAX HEART RATE: 174 95 % OF TARGET HEART RATE ACHIEVED. MET'S: 11.87. RARE PVC'S. NO ANGINA. ST SEGMENT DEPRESSIONS NOTED AT 9 MINUTES 49 SECONDS OF PEAK EXERCISE IN V3, V4, V5, AND V6. ST SEGMENTS BACK TO BASLINE BY 1 MINUTE RECOVERY. FUNCTIONAL CAPACITY: AVERAGE CAPACITY. Maximal heart rate during stress was 174bpm (96% of maximal predicted heart rate). The maximal predicted heart rate was 182bpm. The target heart rate was achieved. The rate-pressure product for the peak heart rate and blood pressure was 73430gh Hg/min. Study data: Jay Shirley MD supervised and was readily available during the procedure. This study was interpreted by [facility]. Study status: Routine. Consent: The risks, benefits, and alternatives to the procedure were explained to the patient and informed consent was obtained. Procedure: Initial setup. A baseline ECG was recorded. Surface ECG leads and manual cuff blood pressure measurements were monitored. Heart sounds: Normal. Lung sounds: Normal. Treadmill exercise testing was performed using the Ken protocol. Study completion: The patient tolerated the procedure well and was discharged from the lab. Discharge: The patient left the laboratory in stable condition. Birthdate: Patient birthdate: 1980. Sex: Gender: male. Study date: Study date: 11/28/2018. Study time: 00:01 AM. Electronically signed by Jay Shirley 11/28/2018 13:20
== END 2018-11-28 00:23 ==
PROVIDERS: PCP Nurse Practitioner; Visit Provider Nurse Practitioner
DX: R07.9 Chest pain, unspecified (principal); R06.09 Other forms of dyspnea; R94.39 Abnormal result of other cardiovascular function study; I10 Essential (primary) hypertension; K21.9 Gastro-esophageal reflux disease without esophagitis; E66.9 Obesity, unspecified; Z87.891 Personal history of nicotine dependence
CPT/HCPCS: 93017

== ENCOUNTER 2018-12-11 00:20 | Outpatient (CLI) | payer BC, SELFPAY ==
--- NOTE | 2018-12-11 06:44 | MERGEMPI_ITS ---
*[facility]* *[facility]* [address] [place] [address] Myocardial Perfusion Imaging - SPECT Ken protocol Date of study: 12/11/2018 *PATIENT PRESENTATION* Height: 185.4cm (73in) Blood Pressure: Weight: 145.5kg (320lb) BSA: 2.8m^2 Referring physician: Corby Kelley Ordering physician: Meche Rey Impressions: Normal myocardial perfusion and contraction after maximal exercise. Summary: 1. Myocardial perfusion imaging: No myocardial perfusion defects noted. 2. The calculated left ventricular ejection fraction after stress: 60%. LV global systolic function is normal. No left ventricular regional motion abnormality. 3. Stress ECG conclusions: The stress ECG is negative. Occasional ventricular ectopy. 4. Stress: The target heart rate was achieved. The heart rate response to stress is normal. There is a normal resting blood pressure with an appropriate response to stress. The patient experienced no chest pain during stress. Exercise capacity is average for age. 5. Baseline ECG: Nonspecific ST changes. 6. Treadmill exercise testing was performed using the Ken protocol. The patient exercised for 11 min, to protocol stage 3, to a maximal work rate of 13.5mets. Exercise was terminated due to fatigue. Indication: R94.39. History: REASON FOR TESTING: PATIENT HAD A REGULAR STRESS TEST 11/28/18. HE IS HERE TODAY FOR MPI STRESS TESTING FOR FURTHER RISK STRATIFICATION DUE TO ABNORMAL STUDY, ST DEPRESSIONS WITHOUT ANGINA.. PATIENT HAS NOT FELT WELL SINCE JULY 2018. HE REPORTS INTERMITTENT LEFT SIDED AXILLA/SCAPULA ICY/HOT DISCOMFORT WHICH OCCASIONALLY RADIATES TO RIGHT SHOULDER (PAIN RATED 7/10). HE STATES HE HAS HAD THIS DISCOMFORT FOR A FEW YEARS NOW, BUT HAS GOTTEN WORSE SINCE AUGUST 2018. HE DENIES CHEST PAIN UPON ARRIVAL TO TESTING TODAY. SIGNIFICANT PAST MEDICAL HISTORY: GERD, RAJEEV, SURGERY IN LEFT ARM FOR REMOVAL OF CALCIUM DEPOSITS IN 2006. SMOKING STATUS: QUIT 2003. PREVIOUSLY SMOKED INTERMITTENTLY FOR YEARS. EXERCISE ROUTINE: DAILY ADL'S. 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 Risk factors: Hypertension. Obesity. Cholesterol: 170mg/dl. HDL: 67mg/dl. LDL: 97mg/dl. Triglycerides: 49mg/dl. ALLERGIES: NO KNOWN MEDICATION ALLERGIES. MEDICATIONS: MULTIVITAMIN DAILY, CALCIUM CARBONATE 300 MG DAILY, VITAMIN B12 1000 MCG DAILY, VITAMIN D 400 UNITS DAILY, ATENOLOL 50 MG DAILY, OMEPRAZOLE 40 MG DAILY, IBUPROFEN 800 MG DAILY. Imaging Technique: Protocol: Ken protocol. Acquisition: Gated SPECT; 1 day - rest/stress. The patient was imaged in the supine position. Attenuation correction used. Isotope administration: - Rest. Tc[99m]-sestamibi. Dose: 15mCi. Injection time: 09:00 AM. Injection to stress time: 00:45. - Stress. Tc[99m]-sestamibi. Dose: 44.3mCi. Injection time: 11:25 AM. 1-2 min before end of exercise Baseline ECG: SINUS RHYTHM. T WAVE INVERSIONS IN THE INFERIOR LEADS. OCCASIONAL PVC'S. HR [address] changes. Stress protocol: + +---+ + !Stage !HR !BP (mmHg) ! + +---+ + !Baseline supine !66 !130/88 (102)! + +---+ + !Baseline standing !71 !130/80 (97) ! + +---+ + !Stage I; 1.7mph, 10degrees; 3 min !112!140/80 (100)! + +---+ + !Stage II; 2.5mph, 12degrees; 3 min !140!160/78 (105)! + +---+ + !Stage III; 3.4mph, 14degrees; 3 min!162!180/86 (117)! + +---+ + !Recovery; 1 min !150!180/78 (112)! + +---+ + !Recovery; 3 min !104!150/78 (102)! + +---+ + !Recovery; 6 min !102!134/80 (98) ! + +---+ + !Recovery; 9 min !105!132/80 (97) ! + +---+ + * Stress results: STRESS TEST ENDED IN 11 MINUTES AND 3 SECONDS DUE TO FATIGUE. NORMAL HEART RATE RESPONSE TO EXERCISE. BUT HEART RATE SLOW TO RETURN TO BASELINE IN RECOVERY. NORMAL BLOOD PRESSURE RESPONSE TO EXERCISE. MAX HEART RATE = 176 % OF TARGET = 96 APPROXIMATE MET'S ACHIEVED = 13.48 OCCASIONAL PVC's BOTH AT REST AND WITH EXERCISE. NO ANGINA. NO SIGNIFICANT ST SEGMENT CHANGES. AVERAGE FUNCTIONAL CAPACITY FOR EXERCISE. Maximal heart rate during stress was 176bpm (97% of maximal predicted heart rate). The maximal predicted heart rate was 182bpm. The target heart rate was achieved. The heart rate response to stress is normal. There is a normal resting blood pressure with an appropriate response to stress. The rate-pressure product for the peak heart rate and blood pressure was 52931xj Hg/min. The patient experienced no chest pain during stress. Exercise capacity is average for age. Stress ECG: The stress ECG is negative. Occasional ventricular ectopy. Acosta treadmill score: 11. This score predicts a low risk of cardiac events. Myocardial perfusion: Imaging information: gated. The image quality was good. Left ventricular size is normal. Right ventricular size is normal. No myocardial perfusion defects noted. Ventricular Function (Wall Motion): The calculated left ventricular ejection fraction after stress: 60%. LV global systolic function is normal. No left ventricular regional motion abnormality. Right ventricular function is normal. Study data: Corby Kelley MD supervised and was readily available during the procedure. This study was interpreted by [facility]. Study status: Routine. Consent: The risks, benefits, and alternatives to the procedure were explained to the patient and informed consent was obtained. Procedure: Initial setup. A baseline ECG was recorded. Surface ECG leads and manual cuff blood pressure measurements were monitored. Heart sounds: Normal. Lung sounds: Normal. Treadmill exercise testing was performed using the Ken protocol. The patient exercised for 11 min, to protocol stage 3, to a maximal work rate of 13.5mets. Exercise was terminated due to fatigue. Study completion: All catheters inserted during the procedure were removed. The patient tolerated the procedure well and was discharged from the lab. Discharge: The patient left the laboratory in stable condition. Birthdate: Patient birthdate: 1980. Sex: Gender: male. Study date: Study date: 12/11/2018. Study time: 00:01 AM. Signature Documentation: - The imaging portion of this study was interpreted by Nuclear [employer] Sales Representative Corby Kelley MD. - The imaging portion of this study was interpreted by Nuclear Radiologist Merrill Edward MD. - The Stress ECG portion of this study was interpreted by Corby Kelley MD. Electronically signed by Corby Kelley 12/11/2018 15:11
== END 2018-12-11 00:40 ==
PROVIDERS: PCP Nurse Practitioner; Visit Provider Nurse Practitioner
DX: R94.39 Abnormal result of other cardiovascular function study (principal); R07.89 Other chest pain; K21.9 Gastro-esophageal reflux disease without esophagitis; Z87.891 Personal history of nicotine dependence
CPT/HCPCS: 78452; 93017

== ENCOUNTER 2018-12-27 18:45 | Emergency (ER) | payer BC, SELFPAY ==
[2018-12-27 18:52] VITALS: BP 150/88; PULSE 78; RESP 18; TEMP 36.7; O2SAT 97
--- NOTE | 2018-12-27 19:00 | DI.CT_ITS ---
SYMPTOMS/DIAGNOSIS: EPIGASTRIC ABDOMINAL PAIN, GASTRIC SLEEVE CT OF THE ABDOMEN AND PELVIS: Comparison is made with abdominal ultrasound of November,. The lung bases are clear. The liver, gallbladder, spleen, pancreas, kidneys and adrenals are unremarkable. There are diverticula of the sigmoid colon. There is no evidence of diverticulitis, inflammatory change or abnormal bowel dilatation. There is a small hiatal hernia. Suture material is seen at the GE junction. There is a fatty-containing umbilical hernia. IMPRESSION: Postsurgical changes at the GE junction. Fatty-containing umbilical hernia. No acute abnormality.
[2018-12-27] MEDS: Normal Saline 1,000 ML 1000 ML IV (19:26)
[2018-12-27] MEDS: Ketorolac 30 MG/ML VIAL 15 MG IVP (19:33)
[2018-12-27 19:47] LABS: Abs Immature Grans 0.01 k/cumm (0.0-0.09); Absolute Basophil Count 0.03 k/cumm (0.0-0.2); Absolute Eosinophil Count 0.14 k/cumm (0.0-0.7); Absolute Lymphocyte Count 2.52 k/cumm (1.2-3.4); Absolute Monocyte Count 0.54 k/cumm (0.11-0.7); Absolute Neutrophil Count 3.15 k/cumm (1.2-6.7); Basophils % 0.5; Eosinophils % 2.2; HCT 46.2 % (40.0-50.0); HGB 15.9 g/dL (13.5-17.5); Immature Grans % 0.2; Lymphocytes % 39.4; Mean Corp. HGB Concentration 34.4 g/dL (32.0-36.0); Mean Corpuscular Hemoglobin 28.8 pg (27.0-33.0); Mean Corpuscular Volume 83.5 fL (80-95); Mean Platelet Volume 12.1 fL (8.0-11.0); Monocytes % 8.5; Neutrophils % 49.2; Platelet Count 201 x1000/uL (130-400); RBC 5.53 m/cumm (4.50-6.00); RBC Distribution Width 13.2 % (11.8-14.1); White Blood Cell Count 6.39 k/cumm (4.4-10.8)
--- NOTE | 2018-12-27 20:02 | W.ED.GENAD ---
Discharge Plan Disposition Patient Disposition: HOME Condition: Good Discharge Details Chief Complaint: Abd Prob Clinical Impression: Chronic epigastric pain Primary Care Provider: Meche Rey ED Provider: Iraj Carr Home Meds and New Rx's Prescriptions: No Action omeprazole 40 mg capsule,delayed release(DR/EC) 40 mg PO DAILY Qty: 90 RF: 3 psyllium husk [Fiber Therapy Laxative (husk)] 0.52 gram capsule 0.52 gm PO BID RF: 0 silver sulfadiazine [Silvadene] 1 % cream 1 applic TP BID Qty: 50 RF: 0 cephalexin [Keflex] 500 mg capsule 500 mg PO TID Qty: 21 RF: 0 atenolol 50 mg tablet 50 mg PO DAILY Qty: 90 RF: 3 vitamin B complex 1 EACH tablet 1 ea PO DAILY RF: 0 aspirin 81 MG tablet,delayed release (DR/EC) 81 mg PO DAILY RF: 0 vit d3 1 tab PO DAILY RF: 0 multivitamin 1 EACH capsule 1 ea PO DAILY RF: 0 calcium carbonate tablet 300 mg DAILY Qty: 0 RF: 0 vitamin b12 1,000 MCG tablet 1,000 mcg PO DAILY Qty: 90 RF: 0 ibuprofen 800 mg tablet 800 mg PO TID PRN (Reason: pain) Qty: 20 RF: 0 Discharge Instructions Instructions: Epigastric Pain (ED) Additional Instructions: Please continue to take your home reflux medications as directed. Please avoid any spicy foods or tomato based products. Please follow-up with your industrial paramedic, at your scheduled appointment for colonoscopy and EGD. If you notice any worsening of your symptoms, or any new symptoms such as vomiting, diarrhea, fever, chills, shortness of breath, chest pain, numbness, weakness, or fainting , please return immediately to the emergency department for reevaluation. Please follow up with your primary care provider as soon as possible for reassessment and reevaluation. As always, it was a pleasure participating in your medical care today. Referrals: Meche Rey NP [Primary Care Provider] - Medical Decision Making This is a pleasant 38-year-old male with a past medical history of a gastric sleeve, reflux, and obesity who presents today for evaluation of epigastric pain that wraps around towards his back. Symptoms have been present for the last 6 weeks. No change with food, however symptoms are made worse with palpation, and movement, improved by lying flat. He has had no vomiting or diarrhea, he denies any changes in his bowel movements. No fever or chills. No dysuria or hematuria. Physical exam demonstrates minimal epigastric tenderness, minimal CVA tenderness bilaterally. Symptoms appear musculoskeletal in nature, however because of his history of gastric sleeve, we will get a CT scan to evaluate for any other acute process. Clinically the patient looks well and due to the longevity of his symptoms and his very benign physical exam and good clinical appearance I do feel that he would be a good candidate for discharge home if his imaging is benign. 9:[address] scan results have returned there is no acute process in his abdomen. No evidence of perforation, her laboratory workup is benign with no elevation in his white count, no bandemia, no significant electrolyte abnormality, no evidence of pancreatitis, or other significant abnormality. Urinalysis is benign. If you have signs and symptoms most likely secondary to a musculoskeletal strain, especially as his ankle disposition is inconsistent with a severe acute abdominal pathology requiring surgery or further intervention. Patient will be discharged home with close follow-up with his primary care provider. He R he does have GI follow-up within the next 1-2 weeks for endoscopy and colonoscopy. We discussed red flags for which to return the patient understands. Recommended continuation of his reflux medications. I have extensively reviewed the treatment plan and discharge instructions with the patient and their family. I have addressed all patient concerns at this time. The patient and family was made aware of what symptoms to monitor for that would warrant a return to the emergency department. Discussed the plan with the patient and family, they demonstrate verbal understanding and agreement with our assessment and plan at this time. TECHNIQUE: Imaging protocol: Axial computed tomography images of the abdomen and pelvis with intravenous contrast. Coronal and sagittal reformatted images were created and reviewed. Radiation optimization: All CT scans at this facility use at least one of these dose optimization techniques: automated exposure control; mA and/or kV adjustment per patient size (includes targeted exams where dose is matched to clinical indication); or iterative reconstruction. Contrast material: [id number] Contrast volume: 100 ml Contrast route: iv COMPARISON: US ABDOMEN 11/22/2018 11:03 AM FINDINGS: Lower thorax: Small hiatal hernia. ABDOMEN: Liver: Normal. No mass. Gallbladder and bile ducts: Normal. No calcified stones. No ductal dilation. Pancreas: Normal. No ductal dilation. Spleen: Normal. No splenomegaly. Kidneys and ureters: Normal. No hydronephrosis. Stomach and bowel: Postoperative changes of the stomach. Mild scattered diverticulosis versus collapsed colon. No diverticulitis. Appendix: Normal appendix. PELVIS: Bladder: Unremarkable as visualized. Reproductive: Unremarkable as visualized. ABDOMEN and PELVIS: Intraperitoneal space: Normal. No free air. No significant fluid collection. Bones/joints: Marked lumbar scoliosis. Moderate degenerative changes, lumbar spine. Soft tissues: Large, fat containing umbilical hernia. Vasculature: Normal. No abdominal aortic aneurysm. Lymph nodes: Normal. No enlarged lymph nodes. Other findings: Moderate retained stool. IMPRESSION: No acute findings. Normal appendix. No hydronephrosis or renal/ureteral calculus. No obstruction. Thank you for allowing us to participate in the care of your patient. HPI General Date/Time Provider Initiated Documentation: 12/27/18 18:49. HPI Narrative: This is a 38-year-old male with a past medical history of hypertension, reflux, who had a gastric sleeve in 2013 who presents today for evaluation of abdominal pain. Patient states that the pain has been going on for the last 4-6 weeks. It is worsened with movement, it is improved by lying flat. It is in the epigastric region and wraps around to the back. It is achy in nature. He denies any associated dysuria, nausea, vomiting, or diarrhea. He does admit to a sensation of the need to have a bowel movement, but denies any diarrhea or change in bowel movements. He denies any hematochezia, melena, acholic stool. He denies any trauma. He denies any significant alcohol intake. Patient did have a stress test 1 month ago and this was normal. He denies any chest pain arm pain neck pain or shoulder pain. [place] any shortness of breath. He has no other complaints or other modifying factors at this time. Patient states that the reason why came in today was that as they were driving down to [place], he noticed some increased discomfort when they are going over bumps or potholes. Related Data Home Medications Medication Instructions Recorded Confirmed multivitamin 1 ea PO DAILY 01/19/13 12/27/18 aspirin 81 mg PO DAILY 04/29/13 12/27/18 vitamin B complex 1 ea PO DAILY 04/29/13 12/27/18 Calcium Carbonate 300 mg DAILY #0 02/16/14 12/27/18 Vitamin B12 1,000 mcg PO DAILY #90 02/16/14 12/27/18 Vit D3 1 tab PO DAILY 04/19/15 12/27/18 omeprazole 40 mg capsule,delayed 40 mg PO DAILY #90 tab-cap 07/10/18 12/27/18 release ibuprofen 800 mg PO TID PRN #20 tab 09/30/18 12/27/18 atenolol 50 mg tablet 50 mg PO DAILY #90 tab-cap 12/25/18 12/27/18 cephalexin 500 mg capsule 500 mg PO TID #21 cap 12/25/18 12/27/18 psyllium husk 0.52 gram capsule 0.52 gm PO BID cap 12/25/18 12/27/18 silver sulfadiazine 1 % topical 1 applic TP BID #50 gm 12/25/18 12/27/18 cream Previous Rx's Medication Instructions Recorded Calcium Carbonate 300 mg DAILY #0 02/16/14 Vitamin B12 1,000 mcg PO DAILY #90 02/16/14 omeprazole 40 mg capsule,delayed 40 mg PO DAILY #90 tab-cap 07/10/18 release ibuprofen 800 mg PO TID PRN #20 tab 09/30/18 atenolol 50 mg tablet 50 mg PO DAILY #90 tab-cap 12/25/18 cephalexin 500 mg capsule 500 mg PO TID #21 cap 12/25/18 silver sulfadiazine 1 % topical 1 applic TP BID #50 gm 12/25/18 cream Allergies Allergy/AdvReac Type Severity Reaction Status Date / Time No Known Allergies Allergy Unverified 12/27/18 18:54 General Stated Complaint: Abd Prob GLORIA: 3 Review of Systems Review of Systems All systems reviewed & are unremarkable except as noted in HPI and below PFSH Social History Smoking/Tobacco Use Status: Never Alcohol Intake: current Alcohol Intake frequency: a few times a week Drug use: Never Substance use type: does not use Number of Children: 2 What type of physical activity do you participate in: other Details: climbing in and out of truck/up and down ladder w/work-[employer] Do you feel safe in your relationship?: Yes Additional Social history: pt is not alone Exam Narrative Exam Narrative: 1.Const: Well-nourished, Well-developed, appearing stated age, notably obese 2.Eyes: PERRL, no conjunctival injection, and symmetrical lids. 3.ENT: Atraumatic external nose and ears. Moist MM. Neck: Symmetric, trachea midline, No thyromegaly. 4.CVS: +S1/S2, No murmurs or gallops. Peripheral pulses 2+ and equal in all extremities. Brisk capillary refill in all extremities. 5.RESP: Unlabored respiratory effort. Clear to auscultation bilaterally. No wheezes rales or rhonchi 6.GI: Soft, Nondistended, No hepatosplenomegaly. No guarding or rebound. Minimal epigastric tenderness. No significant flank pain, minimal CVA tenderness. 7.MSK: Normocephalic/Atraumatic, Extremities w/o deformity or ttp No cyanosis or clubbing, Normal movement of all extremities 8.Skin: Warm, Dry. No rashes or lesions. 9.Neuro: male impersonator II-XII grossly intact. Sensation grossly intact, no focal neurologic deficits. 10.Psych: (AAO) x3. Appropriate mood and affect Course Vital Signs Temperature 36.7 C 12/27/18 18:52 Pulse 78 12/27/18 18:52 Respiratory Rate 18 12/27/18 18:52 Blood Pressure 150/88 H 12/27/18 18:52 Pulse Oximetry 97 12/27/18 18:52 Temperature 36.7 C 12/27/18 18:52 Temperature Source Skin 12/27/18 18:52 Pulse 78 12/27/18 18:52 Respiratory Rate 18 12/27/18 18:52 Respiratory Effort Non-Labored 12/27/18 19:01 Blood Pressure 150/88 H 12/27/18 18:52 Pulse Oximetry 97 12/27/18 18:52 Pain Level 7 12/27/18 19:33 Lab/Test Results Lab/Test Results: Laboratory Tests Range/Units 12/27/18 19:30 WBC (4.4-10.8) k/cumm 6.39 RBC (4.50-6.00) m/cumm 5.53 Hgb (13.5-17.5) g/dL 15.9 Hct (40.0-50.0) % 46.2 MCV (80-95) fL 83.5 MCH (27.0-33.0) pg 28.8 MCHC (32.0-36.0) g/dL 34.4 RDW (11.8-14.1) % 13.2 Plt Count (130-400) x1000/uL 201 MPV (8.0-11.0) fL 12.1 H Immature Gran % 0.2 Neutrophils % 49.2 Lymphocytes % 39.4 Monocytes % 8.5 Eosinophils % 2.2 Basophils % 0.5 Absolute Neutrophils (1.2-6.7) k/cumm 3.15 Absolute Lymphocytes (1.2-3.4) k/cumm 2.52 Absolute Monocytes (0.11-0.7) k/cumm 0.54 Absolute Eosinophils (0.0-0.7) k/cumm 0.14 Absolute Basophils (0.0-0.2) k/cumm 0.03
[2018-12-27 20:05] LABS: ALT 30 U/L (12-78); AST 16 U/L (15-37); Albumin 3.8 g/dL (3.4-5.0); Alkaline Phosphatase 99 U/L (46-116); Anion Gap 7.1 mmol/L (3-11); BUN 17 mg/dL (7-18); Bilirubin, Total 0.6 mg/dL (0.2-1.0); CO2 26.9 mmol/L (21.0-32.0); CREATININE 0.93 mg/dL (0.70-1.30); Calcium 8.8 mg/dL (8.5-10.1); Chloride 103 mmol/L (98-107); Glucose 93 mg/dL (70-100); Lipase 72 U/L (73-393); Potassium 3.7 mmol/L (3.5-5.1); Sodium 137 mmol/L (136-145); Total Protein 7.2 g/dL (6.4-8.2)
[2018-12-27] MEDS: Omnipaque 350 MG/ML 100 ML BTL IJ (21:11)
[2018-12-27 21:26] VITALS: BP 136/78; PULSE 38; RESP 16; O2SAT 96
--- NOTE | 2018-12-27 21:40 | DI.VRAD_ITS ---
EXAM: CT Abdomen and Pelvis With Contrast EXAM DATE/TIME: 12/27/2018 7:03 PM CLINICAL HISTORY: 38 years old, male; Pain; Abdominal pain; Epigastric; Prior surgery; Surgery type: Gastric sleeve TECHNIQUE: Imaging protocol: Axial computed tomography images of the abdomen and pelvis with intravenous contrast. Coronal and sagittal reformatted images were created and reviewed. Radiation optimization: All CT scans at this facility use at least one of these dose optimization techniques: automated exposure control; mA and/or kV adjustment per patient size (includes targeted exams where dose is matched to clinical indication); or iterative reconstruction. Contrast material: [id number] Contrast volume: 100 ml Contrast route: iv COMPARISON: US ABDOMEN 11/22/2018 11:03 AM FINDINGS: Lower thorax: Small hiatal hernia. ABDOMEN: Liver: Normal. No mass. Gallbladder and bile ducts: Normal. No calcified stones. No ductal dilation. Pancreas: Normal. No ductal dilation. Spleen: Normal. No splenomegaly. Adrenals: Normal. No mass. Kidneys and ureters: Normal. No hydronephrosis. Stomach and bowel: Postoperative changes of the stomach. Mild scattered diverticulosis versus collapsed colon. No diverticulitis. Appendix: Normal appendix. PELVIS: Bladder: Unremarkable as visualized. Reproductive: Unremarkable as visualized. ABDOMEN and PELVIS: Intraperitoneal space: Normal. No free air. No significant fluid collection. Bones/joints: Marked lumbar scoliosis. Moderate degenerative changes, lumbar spine. Soft tissues: Large, fat containing umbilical hernia. Vasculature: Normal. No abdominal aortic aneurysm. Lymph nodes: Normal. No enlarged lymph nodes. Other findings: Moderate retained stool. IMPRESSION: No acute findings. Normal appendix. No hydronephrosis or renal/ureteral calculus. No obstruction. Dictated and Authenticated by: Bernard Simpson MD. Ordering:SELENA Galo MD
[2018-12-27 21:43] LABS: Bilirubin Negative (Negative); Blood Negative (Negative); Clarity Clear; Glucose Negative (Negative); Ketones Trace mg/dL (Negative); Leukocyte Esterase Negative (Negative); Nitrite Negative (Negative); Specific Gravity 1.025 (1.005-1.025); Urobilinogen 0.2 EU/dL (Up TO 0.2); pH 6.5 (5-8)
[2018-12-27 21:53] LABS: Bacteria Negative HPF (Negative); C & S Indicated? No; Casts Negative LPF (Negative); Crystals Negative HPF (Negative); Epithelial Cells Negative HPF (Negative); Mucus Trace (Negative); Other Cells Negative (Negative); RBC Negative (0-2); WBC 0-2 HPF (0-5)
== END 2018-12-27 22:06 | disposition home or self-care (01) ==
PROVIDERS: Emergency Provider Student in an Organized Health Care Education/Training Program; PCP Nurse Practitioner
DX: R10.13 Epigastric pain (principal)
CPT/HCPCS: 80053; 83690; 96361; 96374; 99285; 74177; 81003; 81015; 85025; 99284; J1885; J3490

== ENCOUNTER 2019-03-09 01:09 | Outpatient (CLI) | payer BC, SELFPAY ==
[2019-03-09 10:42] LABS: ALT 31 U/L (12-78); AST 19 U/L (15-37); Albumin 3.7 g/dL (3.4-5.0); Alkaline Phosphatase 103 U/L (46-116); BUN 18 mg/dL (7-18); Bilirubin, Total 0.8 mg/dL (0.2-1.0); CREATININE 0.92 mg/dL (0.70-1.30); Calcium 8.4 mg/dL (8.5-10.1); Chloride 103 mmol/L (98-107); Cholesterol 169 mg/dL (50-200); Glucose 84 mg/dL (70-100); HDL Cholesterol 74 mg/dL (40-60); Potassium 4.4 mmol/L (3.5-5.1); Sodium 139 mmol/L (136-145); Total Protein 6.8 g/dL (6.4-8.2); Triglyceride 33 mg/dL (30-150)
[2019-03-10 04:49] LABS: LDL CHOLESTEROL 84 mg/dL (<100)
== END 2019-03-09 01:29 ==
PROVIDERS: PCP Nurse Practitioner; Visit Provider Nurse Practitioner
DX: E66.01 Morbid (severe) obesity due to excess calories (principal); G47.33 Obstructive sleep apnea (adult) (pediatric)
CPT/HCPCS: 36415; 80053; 80061; 83721

== ENCOUNTER 2019-04-27 09:02 | Outpatient (CLI) | payer BC, SELFPAY ==
[2019-04-28 11:28] LABS: Lyme Ab w Rflx to Lyme Confirm Negative
[2019-04-28 22:53] LABS: Anaplasma phagocytophilum Negative (Negative); B. miyamotoi PCR Negative (Negative); Babesia divergens/MO-1 Negative (Negative); Babesia duncani Negative (Negative); Babesia microti Negative (Negative); Ehrlichia chaffeensis Negative (Negative); Ehrlichia ewingii/canis Negative (Negative); Ehrlichia muris eauclairensis Negative (Negative)
== END 2019-04-27 09:22 ==
PROVIDERS: PCP Nurse Practitioner; Visit Provider Nurse Practitioner Family
DX: S30.860A Insect bite (nonvenomous) of lower back and pelvis, initial encounter (principal); W57.XXXA Bitten or stung by nonvenomous insect and other nonvenomous arthropods, initial encounter
CPT/HCPCS: 36415; 87798; 86618

== ENCOUNTER 2019-06-04 15:18 | Outpatient (CLI) | payer BC, SELFPAY ==
--- NOTE | 2019-06-04 14:54 | DI.RAD_ITS ---
SYMPTOMS/DIAGNOSIS: MASS RT INDEX FINGER RIGHT INDEX FINGER: Three views. There is a focal soft tissue protuberance arising from the dorsal aspect of the right index finger at the level of the distal interphalangeal joint. No internal calcification is seen. There does appear to be some cortical irregularity involving the dorsal aspect of the base of the distal phalanx of the right index finger. This may be associated with the soft tissue mass. MRI should be considered for further evaluation. IMPRESSION: Soft tissue mass on the dorsum of the distal aspect of the right index finger. Question of associated underlying cortical irregularity involving the dorsal aspect of the base of the distal phalanx of the right index finger. MRI should be considered for further evaluation.
== END 2019-06-04 15:38 ==
PROVIDERS: PCP Nurse Practitioner; Visit Provider Physician Assistant
DX: R22.31 Localized swelling, mass and lump, right upper limb (principal); M79.89 Other specified soft tissue disorders
CPT/HCPCS: 73140

== ENCOUNTER 2019-07-01 08:29 | Day surgery (SDC) | payer BC, SELFPAY ==
[2019-07-01 08:57] VITALS: BP 134/76; PULSE 69; RESP 16; TEMP 36.4; O2SAT 100
--- NOTE | 2019-07-01 10:01 | W.PM.DSUDISC ---
Discharge Plan Disposition Patient Disposition: HOME Condition: Good Discharge Details Reason For Visit: RIF CYST EXCISION Attending Provider: Alan Golden Primary Care Provider: Meche Rey Home Meds and New Rx's Prescriptions: New ibuprofen 600 mg tablet 600 mg PO TID PRNQty: 30 RF: 3 Continued omeprazole 40 mg capsule,delayed release(DR/EC) 40 mg PO DAILY Qty: 90 RF: 3 vitamin B complex 1 EACH tablet 1 ea PO DAILY RF: 0 aspirin 81 MG tablet,delayed release (DR/EC) 81 mg PO DAILY RF: 0 vit d3 1 tab PO DAILY RF: 0 ranitidine HCl 300 mg capsule 300 mg PO QHS RF: 0 atenolol 50 mg tablet 50 mg PO DAILY Qty: 90 RF: 3 multivitamin 1 EACH capsule 1 ea PO DAILY RF: 0 calcium carbonate tablet 300 mg DAILY Qty: 0 RF: 0 vitamin b12 1,000 MCG tablet 1,000 mcg PO DAILY Qty: 90 RF: 0 calcium carbonate [Calcium 500] 500 mg calcium (1,250 mg) Tablet RF: 0 Probiotic 3 billion cell Capsule 100 RF: 0 Discharge Instructions Additional Instructions: Acetaminophen 1000mg every 8 hours and Ibuprofen 600mg every 8 hours as needed for pain. Stand Alone Forms: [place] [facility] Finger Release Referrals: Alan Golden MD [ 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
--- NOTE | 2019-07-01 16:57 | W.PM.OP ---
Date of service: 07/01/19 Time of Service: 16:57 Operative Note Operative Note DATE OF PROCEDURE: 07/01/19 PRE-OP DIAGNOSIS: Right index finger mucous cyst POST-OP DIAGNOSIS: same PROCEDURE: Excision of cyst from right index finger SURGEON: Alan Golden ANESTHESIA: local ESTIMATED BLOOD LOSS: 5 PATHOLOGY: none sent COMPLICATIONS: None Patient was transported to: same day Patient's condition: stable Indications: I have seen Javad in clinic for symptoms of a digital mucous cyst of the right index finger. The mass has enlarged quite significantly such that he gets in the way, especially in placing Pat pocket. It is also opened up in the past as well. Given its size and persistence, he desired to have it removed. I reviewed the risks of the procedure to include, but not limited to, bleeding, infection, pain, stiffness, damage to nerves or vessels, recurrence. Despite these risks, the patient elected to proceed. Findings: There is a ganglion cyst arising from the radial aspect of the DIP joint. The cyst was removed and an arthrotomy was created with a rondure. Procedure Description: Javad was greeted in the preoperative holding area where the correct side was identified and marked. The consent was reviewed with the patient and signed. All questions were answered. Javad was taken back to the operating room. The patient was placed into the supine position on the operating room table with the right arm on an arm board. All bony prominences were well padded. No prophylactic antibiotics were administered since this was a clean, elective hand surgical case. The right arm was then prepped with Chloraprep and draped in a standard fashion with stockinette and extremity drape. A timeout to confirm correct identity, side and site, procedure, allergies, anesthesia, and medical concerns was performed. The surgical site was marked as a longitudinal incision just radial to the prominence of the mucous cyst of the index finger. A digital block was performed with 1% lidocaine. After the block had set up, a longitudinal incision was made through skin only, approximately 1cm. The deep tissues were dissected bluntly. The cyst was immediately encountered and unfortunately ruptured. The contents were normal cystic-appearing fluid. The cyst sac was grabbed and used to dissect down to the DIP joint. This was removed and whole. A rondure was used to remove this extra tissue as well as debride any bony prominence at the level of the DIP joint. The wound was then irrigated and the skin was closed with a 4-0 Nylon. This was dressed with gauze and a Conform dressing. The patient tolerated the procedure well and was returned to the Same Day Surgery area in a stable condition suffering no known complication.
== END 2019-07-01 10:25 | disposition home or self-care (01) ==
PROVIDERS: PCP Nurse Practitioner; Visit Provider Student in an Organized Health Care Education/Training Program
PROC: (CPT 26160; principal; 2019-07-01 09:45)
DX: M67.441 Ganglion, right hand (principal)
CPT/HCPCS: 26160

== ENCOUNTER 2019-09-15 15:39 | Outpatient (CLI) | payer BC, SELFPAY ==
--- NOTE | 2019-09-15 15:35 | DI.RAD_ITS ---
EXAM: XR KNEE LT 3V AP,LAT,CASIMIRO INDICATION: L knee pain. COMPARISON: No exams were available for comparison TECHNIQUE: 2D digital imaging was performed. FINDINGS: Femorotibial joint spaces are well maintained. There is minimal periarticular spurring. IMPRESSION: Minimal degenerative changes.
== END 2019-09-15 15:59 ==
PROVIDERS: PCP Nurse Practitioner; Visit Provider Physician Assistant
DX: M25.562 Pain in left knee (principal); M17.12 Unilateral primary osteoarthritis, left knee
CPT/HCPCS: 73562

== ENCOUNTER 2021-01-06 02:09 | Outpatient (CLI) | payer BC, SELFPAY ==
--- NOTE | 2021-01-06 07:45 | DI.US_ITS ---
EXAM: US ABDOMEN CLINICAL HISTORY: Chronic RUQ pain,R10.11 TECHNIQUE: Ultrasound of complete upper abdomen performed using standard protocol. COMPARISON: US US ABDOMEN from 11/22/2018 FINDINGS: Study somewhat limited due to body habitus. There is no ascites evident. LIVER: Liver is hyperechoic implying steatosis. No obvious distinct focal hepatic lesions identified . GALLBLADDER/BILIARY: There are no gallstones. No gallbladder wall edema nor pericholecystic fluid. The common hepatic duct isnot dilated, measuring 3-4mm at the level of fabiana hepatis. PANCREAS: Partially obscured by overlying bowel gas. Suboptimal examination SPLEEN: The spleen is slightly prominent in size. There are no intrasplenic lesions evident. KIDNEYS:Kidneys exhibit normal size with no evidence of solid mass, calculus, nor hydronephrosis. No cortical cysts evident. ABDOMINAL AORTA: There is no evidence of abdominal aortic aneurysm. IVC: Normal diameter where visualized. IMPRESSION: 1. No evidence of cholelithiasis nor dilatation of the biliary tree. 2. Hepatic steatosis. Correlation appropriate hepatic blood work recommended. 3. Pancreas was not well seen due to overlying bowel gas. There is no ascites. DATA REPOSITORY:
== END 2021-01-06 02:29 ==
PROVIDERS: PCP Nurse Practitioner; Visit Provider Family Medicine
DX: R10.11 Right upper quadrant pain (principal); K76.0 Fatty (change of) liver, not elsewhere classified
CPT/HCPCS: 76700

== ENCOUNTER 2021-01-06 03:24 | Outpatient (CLI) | payer BC, SELFPAY ==
[2021-01-06 13:09] LABS: ALT 47 U/L (16-63); AST 20 U/L (15-37); Albumin 3.9 g/dL (3.4-5.0); Alkaline Phosphatase 105 U/L (46-116); Anion Gap 6.4 mmol/L (3-11); BUN 16 mg/dL (7-18); Bilirubin, Total 0.6 mg/dL (0.2-1.0); CO2 30.6 mmol/L (21.0-32.0); CREATININE 0.9 mg/dL (0.70-1.30); Calcium 9.2 mg/dL (8.5-10.1); Chloride 105 mmol/L (98-107); Glucose 94 mg/dL (74-106); Lipase 63 U/L (73-393); Potassium 4.7 mmol/L (3.5-5.1); Sodium 142 mmol/L (136-145); Total Protein 7.3 g/dL (6.4-8.2)
== END 2021-01-06 03:25 | disposition home or self-care (01) ==
LOC: LBO 03:24
PROVIDERS: PCP Nurse Practitioner; Visit Provider Family Medicine
DX: R10.11 Right upper quadrant pain (principal)
CPT/HCPCS: 36415; 80053; 83690

== ENCOUNTER 2021-06-14 16:32 | Outpatient (CLI) | payer BC, SELFPAY ==
--- NOTE | 2021-06-14 16:30 | RT.EKG_ITS ---
APPROVED REPORT Exam: Resting ECG Reason for Exam: chest pain Patient Location: O HR:64 bpm ECG Measurements Heart Rate 64 AXIS AR 154 P 24 QRSd 106 QRS 29 QT 400 T -4 QTc 412 Conclusion Sinus rhythm...normal P axis, V-rate 60- 99 Normal Electrocardiogram
== END 2021-06-14 16:33 | disposition home or self-care (01) ==
LOC: DI.KIM 16:33
PROVIDERS: PCP Nurse Practitioner; Visit Provider Student in an Organized Health Care Education/Training Program
DX: R07.9 Chest pain, unspecified (principal)
CPT/HCPCS: 93010

== ENCOUNTER 2021-06-30 02:18 | Outpatient (CLI) | payer BC, SELFPAY ==
--- NOTE | 2021-07-21 09:18 | W.ZIOMONITOR ---
Date of service: 07/21/21 Time of Service: 09:18 14 Day Cash Management Associate Referring Provider:: Janet Tavarez Indications:: Evaluate rhythm Note: This is a 14-day quality assurance monitor final. Predominant rhythm was sinus with an average heart rate of 67. Minimum was 45, maximum 127 There were very rare atrial and ventricular ectopic beats There was no atrial fibrillation, no high-grade AV block, no pauses greater than 3 seconds Patient symptoms reported to be chest pain, associated with sinus rhythm, no dysrhythmia
== END 2021-06-30 02:19 | disposition home or self-care (01) ==
LOC: RT 02:18
PROVIDERS: PCP Nurse Practitioner; Visit Provider Student in an Organized Health Care Education/Training Program
DX: I49.8 Other specified cardiac arrhythmias (principal)

== ENCOUNTER 2021-07-06 09:22 | Emergency (ER) | payer BC, SELFPAY ==
[2021-07-06 09:32] VITALS: BP 145/92; PULSE 70; RESP 16; TEMP 36.9; O2SAT 95
[2021-07-06 09:50] VITALS: RESP 16
--- NOTE | 2021-07-06 10:00 | DI.CT_ITS ---
Exam(s) CT THORACIC SPINE WO EXAM: CT THORACIC SPINE WO CLINICAL HISTORY: Radiculopathy. TECHNIQUE: Imaging Protocol: Axial computed tomography images with coronal and sagittal reformatted images were created and reviewed. CONTRAST MATERIAL: Intravenous: None COMPARISON: CT THORACIC AND LUMBAR SPINE WO from 09/09/[address] CERVICAL SPINE WO from 07/06/2021 FINDINGS: OSSEOUS: There is a thoracolumbar scoliosis. Convex right in the thoracic spine and convex left in the lumbar spine. There is no evidence of fracture or listhesis. No spinal canal stenosis. No ominous osseou s lesions. Multiple contiguous right-sided osteophytes are noted in the lower thoracic spinal column . Degenerative changes are noted in the facet joints in the lower thoracic spine. However, there is no facet malalignment. No osseous lesions. IMPRESSION: Scoliosis. No fractures nor listhesis. No osseous lesions No central spinal canal stenosis RADIATION DOSE DELIVERED: Total DLP DATA REPOSITORY: All CT scans at this facility are submitted to the National Radiology Data Registry (NRDR) Dose Index Registry (DIR) with the [employer] (A[employer]). RADIATION OPTIMIZATION: All CT scans at this facility use at least one of these dose optimization te chniques: automated exposure control; mA and/or kV adjustment per patient size (includes targeted exa ms where dose is matched to clinical indication); or iterative reconstruction.
--- NOTE | 2021-07-06 10:00 | RT.EKG_ITS ---
APPROVED REPORT Exam: Resting ECG Reason for Exam: shoulder pain Patient Location: E HR:60 bpm ECG Measurements Heart Rate 60 AXIS NJ 136 P 11 QRSd 107 QRS 32 QT 404 T 21 QTc 405 Conclusion Sinus rhythm...normal P axis, V-rate 60- 99
--- NOTE | 2021-07-06 10:00 | DI.CT_ITS ---
Exam(s) CT CERVICAL SPINE WO EXAM: CT CERVICAL SPINE WO CLINICAL HISTORY: Radiculopathy. TECHNIQUE: Imaging Protocol: Axial computed tomography images with coronal and sagittal reformatted images were created and reviewed COMPARISON: No exams were available for comparison FINDINGS: CERVICAL SPINE: There is no evidence of fracture nor listhesis. No significant prevertebral soft tissue swelling. There is no significant facet joint malalignment. No significant osseous lesions evident. IMPRESSION: No evidence of cervical spine fracture, malalignment, nor acute compromise of the cervical spinal can al. RADIATION DOSE DELIVERED: Total DLP DATA REPOSITORY: All CT scans at this facility are submitted to the National Radiology Data Registry (NRDR) Dose Index Registry (DIR) with the [employer] (ACR). RADIATION OPTIMIZATION: All CT scans at this facility use at least one of these dose optimization te chniques: automated exposure control; mA and/or kV adjustment per patient size (includes targeted exa ms where dose is matched to clinical indication); or iterative reconstruction.
--- NOTE | 2021-07-06 10:05 | W.ED.GENAD ---
Discharge Plan Disposition Patient Disposition: HOME Condition: Stable Discharge Details Clinical Impression: Radiculitis, thoracic, Upper back pain Primary Care Provider: Meche Rey ED Provider: Gerda Darling Home Meds and New Rx's Prescriptions: New cyclobenzaprine 10 mg tablet 10 mg PO TID PRN (Reason: muscle spasm) Qty: 10 RF: 0 No Action omeprazole 20 mg tablet,delayed release (DR/EC) 20 mg PO DAILY RF: 0 cyanocobalamin (vitamin B-12) 1,000 mcg tablet 1,000 mcg PO DAILY RF: 0 ibuprofen 600 mg tablet 600 mg PO BID Qty: 30 RF: 1 bupropion HCl [Wellbutrin SR] 100 mg tablet sustained-release 12 hr 100 mg PO QAM Qty: 30 RF: 1 vitamin B complex 1 EACH tablet 1 ea PO DAILY RF: 0 aspirin 81 MG tablet,delayed release (DR/EC) 81 mg PO DAILY RF: 0 vit d3 1 tab PO DAILY RF: 0 ibuprofen 600 mg tablet 600 mg PO TID PRN (Reason: fever or pain) Qty: 90 RF: 3 atenolol 50 mg tablet 50 mg PO DAILY Qty: 90 RF: 3 multivitamin 1 EACH capsule 1 ea PO DAILY RF: 0 calcium carbonate [Calcium 500] 500 mg calcium (1,250 mg) Tablet RF: 0 Discharge Instructions Instructions: Cervical Radiculopathy (ED), Back Pain (ED) Additional Instructions: CT of your neck and thoracic spine show some degenerative changes but no narrowing of the spinal canal. Symptoms do appear to be nerve neuropathy in nature. Please continue to follow-up as a previously scheduled for the Holter monitor reading. Follow up with primary care provider in 3-5 days. Return to ED sooner if any worsening or concerns. Increase oral fluids. Please take Tylenol or Ibuprofen with food every 4-6 hours as needed for pain and swelling. Please take the muscle relaxers as prescribed you may take up to 3 a day as needed. Do not drive or operate heavy machinery while taking these medications as they may cause sleepiness. Discussed neuroleptic such as gabapentin or other with your primary care provider. Do take muscle relaxers and see if this alleviates her symptoms. Stand Alone Forms: Work Release Referrals: Meche Rey NP [Primary Care Provider] - Medical Decision Making 41-year-old male presents to the ER with chief complaint of bilateral shoulder burning, and numbness which radiates down into his left shoulder and his left thumb index finger and middle finger. She reports this is been ongoing for approximately 8-month. He has been being followed by his primary care provider is wearing a Holter monitor which is due to come off approximately a week from today. He reports he had [address] episodes [address] today of full body burning which has resolved upon arrival. Patient has been taking ibuprofen for pain prior to arrival. EKG ordered EKG was reviewed by Dr. Michael Gonzalez MD ER attending, normal sinus rhythm CT and C-spine thoracic and cervical spine ordered, Flexeril 10 mg p.o. Patient declined Flexeril at this time due to driving self to the ER. EXAM: CT CERVICAL SPINE WO FINDINGS: CERVICAL SPINE: There is no evidence of fracture nor listhesis. No significant prevertebral soft tissue swelling. There is no significant facet joint malalignment. No significant osseous lesions evident. IMPRESSION: No evidence of cervical spine fracture, malalignment, nor acute compromise of the cervical spinal canal. CT thoracic spine without contrast: FINDINGS: OSSEOUS: There is a thoracolumbar scoliosis. Convex right in the thoracic spine and convex left in the lumbar spine. There is no evidence of fracture or listhesis. No spinal canal stenosis. No ominous osseous lesions. Multiple contiguous right-sided osteophytes are noted in the lower thoracic spinal column. Degenerative changes are noted in the facet joints in the lower thoracic spine. However, there is no facet malalignment. No osseous lesions. IMPRESSION: Scoliosis. No fractures nor listhesis. No osseous lesions No central spinal canal stenosis Discussed results with patient verbalized understanding we will send patient home with Flexeril prescription and follow-up with Ortho. Degenerative changes noted in thoracic spine as noted in the results above. I do suspect that this is nerve pain. Discussed CT results at length with patient. Upon attempt to discharge patient is refusing to leave. He does express the desire to follow-up with Dr. Golden and [facility] x-ray of left shoulder and left elbow ordered. Patient placed on the orthopedic follow-up list. Due to patient's chronic symptoms in nature do feel it is appropriate at this time to have patient follow-up with orthopedics regarding the shoulder and elbow. Patient verbalized understanding and is in agreement with plan. Prescription for Flexeril given. This text was generated using Roojoomation system, please disregard any oddities of phrase or misspellings. HPI General Mode of arrival: ambulatory. Date/Time Provider Initiated Documentation: 07/06/21 09:36. Limitations to Documentation: no limitations. Information obtained by: patient, RN notes reviewed and old records reviewed. HPI Narrative: 41-year-old male presents to the ER with chief complaint of bilateral shoulder burning, and numbness which radiates down into his left shoulder and his left thumb index finger and middle finger. She reports this is been ongoing for approximately 8-month. He has been being followed by his primary care provider is wearing a Holter monitor which is due to come off approximately a week from today. He reports he had [address] episodes [address] today of full body burning which has resolved upon arrival. Patient has been taking ibuprofen for pain prior to arrival. Related Data Home Medications Medication Instructions Recorded Confirmed multivitamin 1 ea PO DAILY 01/19/13 07/06/21 aspirin 81 mg PO DAILY 04/29/13 07/06/21 vitamin B complex 1 ea PO DAILY 04/29/13 07/06/21 Vit D3 1 tab PO DAILY 04/19/15 07/06/21 calcium carbonate [Calcium 500] 07/01/19 06/15/21 ibuprofen 600 mg tablet 600 mg PO TID PRN #90 tab 01/28/20 07/06/21 atenolol 50 mg tablet 50 mg PO DAILY #90 tab-cap 07/30/20 07/06/21 cyanocobalamin (vitamin B-12) 1,000 mcg PO DAILY 01/25/21 07/06/21 1,000 mcg tablet omeprazole 20 mg tablet,delayed 20 mg PO DAILY tab 01/25/21 07/06/21 release bupropion HCl 100 mg tablet,12 hr 100 mg PO QAM #30 tab 06/14/21 07/06/21 sustained-release ibuprofen 600 mg tablet 600 mg PO BID #30 tab 06/14/21 07/06/21 cyclobenzaprine 10 mg PO TID PRN #10 tab 07/06/21 Previous Rx's Medication Instructions Recorded ibuprofen 600 mg tablet 600 mg PO TID PRN #90 tab 01/28/20 atenolol 50 mg tablet 50 mg PO DAILY #90 tab-cap 07/30/20 bupropion HCl 100 mg tablet,12 hr 100 mg PO QAM #30 tab 06/14/21 sustained-release ibuprofen 600 mg tablet 600 mg PO BID #30 tab 06/14/21 cyclobenzaprine 10 mg PO TID PRN #10 tab 07/06/21 Allergies Allergy/AdvReac Type Severity Reaction Status Date / Time No Known Allergies Allergy Verified 07/06/21 09:37 General Stated Complaint: GenMedical GLORIA: 3 Review of Systems Narrative: Constitutional: Negative for weight loss, alert and oriented, well groomed, normal body habitus, appears comfortable. HEENT: Denies trauma, blurry vision, nasal discharge, sore throat, trouble swallowing. Chest: Denies chest pain, palpitations, hypertension. Respiratory: Denies Shortness of breath, cough, hemoptysis. GI: Denies vomiting, diarrhea, constipation. : Denies dysuria, hematuria, flank pain, rectal bleeding. Neuro: Denies dizziness, blurry vision, weakness, syncope, or facial numbness. As per HPI bilateral posterior shoulder burning with radiation down his left arm into his first 3 digit. Chronic. Hematologic: Denies easy bruising, intolerance to heat or cold, hair loss. [facility] Medical History Arm erythema (06/27/17) Body aches Cellulitis of lower extremity Digital mucous cyst of finger of right hand Right Index Finger s/p excision 07/01/2019 Gastritis Hemoptysis Hiatal hernia EGD/colonoscopy 05/09/19 [facility] moderate High fever Left lower lobe pneumonia Left shoulder pain RAJEEV on CPAP Needs machine eval, > 10 yrs old. Used regularly. Periodic heart flutter Right upper quadrant abdominal pain Surgical History Bariatric Sleeve, [facility] 01/2013 History of endoscopy upper History of placement of ear tubes Hx of colonoscopy L elbow and shoulder bone spur repair, [facility] Ventral Hernia repair, [facility] 01/2013 pt denies/states he never had this done. Family History Father Hypertensive disorder, systemic arterial Obesity Paternal Grandfather Prostate cancer Maternal Grandfather Diabetes Hypertension Paternal Grandmother Breast cancer Lung cancer Mother Hypertension Social History (Reviewed 07/06/21 @ 10:11 by Gerda Hurst Smoking/Tobacco Use Status: Former Tobacco Use Quit Date: 10/08/03 Tobacco: How many years used: 6 Second Hand Exposure: No Smoking risk assessment performed?: Yes Alcohol Intake: current Alcohol Intake frequency: a few times a week Alcohol type: beer Drug use: Never Substance use type: does not use Adopted: No Caregiver/Support person: No Foster care: No Household members: spouse Housing: house Number of Children: 2 Communication Needs: Corrective Lenses Do you need help understanding health information?: Often Pets and animals: Yes Pets and animals: dog(s) Current gender identity: male What is your relationship status?: How often do you talk on the phone with friends or family?: three or more times per week How often do you get together with friends or relatives?: twice per week How often do you attend lutheran or cheondoism services?: 1-3 times per year Panel score (0-1 are the most socially isolated patients): 2 What type of physical activity do you participate in: walking and other Details: climbing in and out of truck/up and down ladder w/work-[employer] Duration: 30-45 minutes/day Frequency: 5-6 times per week Nury/Hinduism: Presbyterian Special nury needs: No Seatbelt use: always Helmet use: Yes (sometimes) Drive intox or ride w/intox 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 Appears stated age. Normal body habitus. Head: Normocephalic, no trauma. Eyes: Pupils PERRLA, Red reflex noted, EOM's intact. Eyelids symmetrical without lesions, discharge, or swelling. ENT: Bilateral TM's WNL, External ear normal to inspection, no mastoid TTP, swelling, or erythema, Nasal turbinates WNL, no nasal discharge. Normal dentition, Posterior pharynx WNL, no exudate. Chest: RRR, Normal S1, S2, distal pulses intact. Resp: Lungs clear to auscultation bilaterally, no wheezes, rales, or rhonchi. Musculoskeletal: Normal gait, 5/5 strength to all four extremities. Does have some chronic appearing swelling to his left elbow with surgical scars that are healed noted. He also has an abrasion noted to the dorsum of his left hand. He reports some numbness to his first 3 digits on his left hand and intermittently on his right hand. Full range of motion to his right upper extremity. Does have some limited movement to his left upper extremity. No midline C or T-spine tenderness with palpation. Does have some left-sided paraspinous tenderness with palpation. Skin: Capillary refill less than 2 sec. Neurologic: Cranial nerves II-XII intact. Alert and oriented x 3. DTR's intact. Hematologic/Lymphatic: No ecchymosis, no lymphadenopathy. Course Vital Signs Vital signs: Vital Signs Temperature 36.9 C 07/06/21 09:32 Pulse 70 07/06/21 09:32 Respiratory Rate 16 07/06/21 09:32 Blood Pressure 145/92 H 07/06/21 09:32 Pulse Oximetry 95 07/06/21 09:32 Temperature 36.9 C 07/06/21 09:32 Temperature Source Tympanic 07/06/21 09:32 Pulse 70 07/06/21 09:32 Respiratory Rate 16 07/06/21 09:50 Respiratory Effort Non-Labored 07/06/21 09:35 Respiratory Depth Normal 07/06/21 09:50 Respiratory Pattern Normal 07/06/21 09:50 Blood Pressure 145/92 H 07/06/21 09:32 Blood Pressure Position Sitting 07/06/21 09:32 Pulse Oximetry 95 07/06/21 09:32 Oxygen Delivery Method Room Air 07/06/21 09:32 Oxygen Flow Rate 0 07/06/21 09:32 Pain Level 7 07/06/21 09:32 PAWSS Pt Consumed Any Amount of Alcohol Within the Last 30 days OR had positive [place] Upon Admission: Yes Have you Been Recently Intoxicated or Drunk Within the Last 30 days?: No Have you Ever Experienced Previous Episodes of Alcohol Withdrawal?: No Have you ever Experienced Withdrawal Seizures?: No Have you ever Experienced Delirium Tremens(DT)s?: No Have you ever undergone Alcohol Rehabilitation Treatment (i.e, inpt ot outpatient treatment programs)?: No Have you ever Experienced Blackouts?: No Have you ever Combined Alcohol with other Downers within the last 90 days?: No Have you ever Combined Alcohol with any other Substance of Abuse during the last 90 days?: No Positive Blood Alcohol level on Presentation? [PCS.BAL]: No Evidence of Increased Autonomic Activity (i.e. HR>120, tremor, sweating, agitation, nausea)?: No Result: 0
[2021-07-06 12:09] VITALS: BP 138/87; PULSE 57; RESP 17; TEMP 36.2; O2SAT 99
--- NOTE | 2021-07-06 12:55 | DI.RAD_ITS ---
Exam(s) XR ELBOW LT COMPLETE EXAM: XR ELBOW LT COMPLETE CLINICAL HISTORY: Swelling, previous surgery. TECHNIQUE: 2D digital imaging was performed of the left elbow. Images were obtained. AP, lateral and oblique views were obtained. COMPARISON: CR XR elbow LT complete from 09/28/2018 FINDINGS: BONES: No acute fracture is present. No bony destructive lesion is seen. Exuberant bony production is seen at the elbow. It appears to have progressed compared to the prior examination. JOINTS: Stable alignment of the elbow. No joint effusion is seen. SOFT TISSUE: Normal. IMPRESSION: No acute abnormality. DATA REPOSITORY: RADIATION DOSE DELIVERED:
--- NOTE | 2021-07-06 12:55 | DI.RAD_ITS ---
Exam(s) XR SHOULDER LT COMPLETE 2+V EXAM: XR SHOULDER LT COMPLETE 2+V CLINICAL HISTORY: Hx surgery, left shoulder pain. TECHNIQUE: 2D digital imaging was performed of the left shoulder. Five images were obtained. AP in ternal and external, Grashey, Y-view and axillary views were obtained. COMPARISON: No exams were available for comparison FINDINGS: BONES: No acute fracture is present. No bony destructive lesion is seen. JOINTS: No dislocation present. Postsurgical changes at the acromioclavicular joint. Dystrophic calc ifications are seen in the soft tissues. SOFT TISSUE: Normal. IMPRESSION: No acute abnormality. DATA REPOSITORY: RADIATION DOSE DELIVERED:
== END 2021-07-06 13:15 | disposition home or self-care (01) ==
PROVIDERS: Emergency Provider Registered Nurse Emergency; PCP Nurse Practitioner
DX: M54.13 Radiculopathy, cervicothoracic region (principal); M54.6 Pain in thoracic spine; R20.0 Anesthesia of skin
CPT/HCPCS: 93005; 99284; 72125; 72128; 73030; 73080; 93010

== ENCOUNTER 2021-12-26 03:25 | Outpatient (CLI) | payer BC, SELFPAY ==
[2021-12-26 18:07] LABS: Calculated LDL 106 mg/dL (<100); Cholesterol 173 mg/dL (<200); HDL Cholesterol 59 mg/dL (40-60); Triglyceride 41 mg/dL (<150); Vitamin B12 504 pg/mL (193-986)
== END 2021-12-26 03:26 | disposition home or self-care (01) ==
LOC: LBO 03:25
PROVIDERS: PCP Nurse Practitioner; Visit Provider Nurse Practitioner
DX: R20.2 Paresthesia of skin (principal); Z13.220 Encounter for screening for lipoid disorders
CPT/HCPCS: 36415; 80061; 82607

== ENCOUNTER 2022-01-31 15:56 | Outpatient (REF) | payer BC, SELFPAY ==
[2022-01-31 19:21] LABS: Abs Immature Grans 0.01 10^3/uL (0.0-0.06); Absolute Basophil Count 0.04 10^3/uL (0.0-0.2); Absolute Eosinophil Count 0.15 10^3/uL (0.0-0.7); Absolute Lymphocyte Count 2.17 10^3/uL (1.2-3.4); Absolute Monocyte Count 0.56 10^3/uL (0.1-0.8); Absolute Neutrophil Count 3.22 10^3/uL (1.2-6.7); Basophils % 0.7; Eosinophils % 2.4; HCT 46.4 % (40.0-50.0); HGB 15.2 g/dL (13.5-17.5); Immature Grans % 0.2; Lymphocytes % 35.3; MCH 28.3 pg (27.0-33.0); MCHC 32.8 % (32.0-36.0); MCV 86.4 fL (80-95); MPV 12.1 fL (8.0-11.0); Monocytes % 9.1; Neutrophils % 52.3; Platelet Count 204 10^3/uL (130-400); RBC 5.37 10^6/uL (4.36-5.78); RDW-SD 40.7 fL; WBC 6.15 10^3/uL (4.4-10.8)
[2022-01-31 19:29] LABS: ALT 37 U/L (16-63); AST 18 U/L (15-37); Alkaline Phosphatase 117 U/L (46-116); Anion Gap 9.6 mmol/L (3-11); BUN 19 mg/dL (7-18); Bilirubin, Total 0.3 mg/dL (0.2-1.0); CO2 25.4 mmol/L (21.0-32.0); CREATININE 0.8 mg/dL (0.70-1.30); Calcium 8.8 mg/dL (8.5-10.1); Chloride 104 mmol/L (98-107); Glucose 96 mg/dL (74-106); Potassium 4.4 mmol/L (3.5-5.1); Sodium 139 mmol/L (136-145); Total Protein 7.2 g/dL (6.4-8.2)
== END 2022-01-31 15:57 | disposition home or self-care (01) ==
LOC: LBN 15:56
PROVIDERS: PCP Nurse Practitioner; Visit Provider Nurse Practitioner
DX: I10 Essential (primary) hypertension (principal)
CPT/HCPCS: 80053; 85025

== ENCOUNTER 2022-02-14 15:45 | Outpatient (CLI) | payer BC, SELFPAY ==
--- NOTE | 2022-02-14 15:45 | RT.EKG_ITS ---
APPROVED REPORT Exam: Resting ECG Reason for Exam: left chest pain Patient Location: O HR:65 bpm ECG Measurements Heart Rate 65 AXIS IN 157 P 16 QRSd 106 QRS 26 QT 397 T -52 QTc 413 Conclusion Sinus rhythm...normal P axis, V-rate 60- [address] abnormalities
== END 2022-02-14 15:46 | disposition home or self-care (01) ==
LOC: DI.KIM 15:46
PROVIDERS: PCP Nurse Practitioner; Visit Provider Student in an Organized Health Care Education/Training Program
DX: R07.89 Other chest pain (principal); R06.02 Shortness of breath
CPT/HCPCS: 93010

== ENCOUNTER → 2022-02-21 00:58 | Outpatient (CLI) | payer BC, SELFPAY ==
--- NOTE | 2022-02-21 08:00 | ETT_ITS ---
APPROVED REPORT Exam: Exercise Treadmill Patient Location: Out-Patient Room/Bed: Stress Nurse: Lavern Trejo RN Ordering Provider:JIMMY FRANCOIS, Contact Number: [phone] BMI: 48.81 Baseline Rhythm: Sinus Rhythm Comment: inverted T waves in inferolateral leads Indications: CHEST PAIN, SOB ON EXERTION, EKG UNDER EXERCISE Medical History Medical History: GERD, RAJEEV w/ CPAP, Hypertensive retinopathy, HTN, COVID-19 Cardiac Medications: Omeprazole, Atenolol, Aspirin Allergies: No known drug allergies Cardiac Risk Factors: HTN, Obesity, Smoking (former) Previous Cardiac Procedures: None Pretest Chest Pain Characteristics: No chest pain Exercise History: Sedentary Physical Disabilities: None Lung Sounds: Clear to auscultation Heart Sounds: Regular Stress Test Details Test: Exercise stress testing was performed using a Ken protocol. Rest Stress HR Resting HR Supine: 66 bpm Max Heart Rate (APMHR): 179 bpm Resting HR Standin bpm Target HR (85% APMHR): 152 bpm Max HR Achieved: 156 bpm % of APMHR: 87 Recovery HR: 96 bpm HR response to stress: Normal HR response to stress Comment: Atenolol held for 24 hours prior to test. BP Resting BP Supine: 138/82 mmHg Resting BP Standin/88 mmHg Max BP: 210/94 mmHg Recovery BP: 148/84 mmHg BP response to stress: Abnormal hypertensive response to stress. ECG Resting ECG: Sinus Rhythm Ectopy: None Comment: baseline T wave inverstions noted in leads II, III, aVF, V5, and V6 while in supine position , then also in V3 and V4 when patient stood. Stress ECG: Sinus Tachycardia ST Change: deepening T wave inversions Arrhythmia: PAC, occasional PVC Recovery ECG: Sinus Rhythm Recovery ST Change: No significant ST segment changes noted Recovery Arrhythmia: None Clinical Reason for Termination: Leg fatigue Stress Symptoms: Leg Fatigue Exercise duration: 9 min00 sec Highest Stage Reached: Stage 3: 3.4 mph at 14% grade. Exercise capacity: 10.16 METs Acosta Treadmill Score: 9 Rate Pressure Product: [id number] Stress ECG Conclusion 1. The resting electrocardiogram showed left ventricular hypertrophy with repolarization abnormalitie s 2. Patient exercised on the Ken protocol and completed a workload of 10.16 METS, stopping due to le g fatigue 3. Mildly hypertensive blood pressure response to exercise. Normal heart rate response to exercise. The patient achieved 87% of predicted heart rate for age 4. At peak exercise there was an additional [address] depression in the inferior and hussain lateral leads 5. The electrocardiographic portion of the test was nondiagnostic due to resting ST-T abnormalities 6. There were no significant dysrhythmias 7. Suggest repeat with imaging if clinically indicated Acosta Treadmill Score is 9 which is Low risk. Stress Test Summary STAGE Time (mins) Speed (mph) Grade (%) HR BP SYMPTOMS METS Supine 66 138/82 Standing 66 148/88 SpO2 98% 1 3 1.7 10 119 148/90 4.6 2 6 2.5 12 136 7 3 9 3.4 14 156 10.2 1 min recovery 128 210/94 SpO2 96% 3 min recovery 102 184/90 6 min recovery 96 148/84
== END ==
PROVIDERS: PCP Nurse Practitioner; Visit Provider Student in an Organized Health Care Education/Training Program
DX: R06.02 Shortness of breath (principal); R68.89 Other general symptoms and signs
CPT/HCPCS: 93017

== ENCOUNTER → 2022-03-31 14:45 | Outpatient (CLI) | payer BC, SELFPAY ==
--- NOTE | 2022-03-31 14:15 | DI.RAD_ITS ---
Exam(s) XR KNEE RT 3V AP,LAT,CASIMIRO EXAM: XR KNEE RT 3V AP,LAT,CASIMIRO CLINICAL HISTORY: pain. Childhood injury. RT Knee pain--M25.561. TECHNIQUE: 2D digital imaging was performed of the right knee. Three views obtained. AP, lateral an d PA tunnel views were obtained. COMPARISON: CR XR KNEE LT 3V AP,LAT,CASIMIRO from 09/15/2019 FINDINGS: BONES: No acute fracture is present. No bony destructive lesion is seen. JOINTS: The knee is normally aligned. No joint effusion is seen. Chondrocalcinosis is seen in the fem oral tibial joint. SOFT TISSUE: Normal. IMPRESSION: No acute abnormality. DATA REPOSITORY: RADIATION DOSE DELIVERED:
== END ==
PROVIDERS: PCP Nurse Practitioner; Visit Provider Nurse Practitioner
DX: M25.561 Pain in right knee (principal); M11.261 Other chondrocalcinosis, right knee
CPT/HCPCS: 73562

== ENCOUNTER 2022-04-30 16:00 | Emergency (ER) | payer BC, SELFPAY ==
[2022-04-30] VITALS (16 sets, daily range): BP systolic 132–187; BP diastolic 65–93; PULSE 94–106; RESP 17–100; TEMP 37.2–37.6; O2SAT 97–98
--- NOTE | 2022-04-30 16:00 | RT.EKG_ITS ---
APPROVED REPORT Exam: Resting ECG Reason for Exam: near syncope Patient Location: E HR:95 bpm ECG Measurements Heart Rate 95 AXIS ND 149 P 34 QRSd 105 QRS 28 QT 309 T 225 QTc 389 Conclusion Sinus rhythm...normal P axis, V-rate 60- 99 sinus rhythm, normal axis, normal interals, T wave inversions II III aVF, V4-V6; poor baseline
--- NOTE | 2022-04-30 16:00 | DI.RAD_ITS ---
Exam(s) XR PORTABLE CHEST AP EXAM: XR PORTABLE CHEST AP CLINICAL HISTORY: neat syncope. TECHNIQUE: 2D digital imaging was performed. COMPARISON: CR XR CHEST 2V PA LATERAL from 07/22/2018 FINDINGS: Single AP portable view. Scoliosis again noted. Heart size is upper normal. The mediastinum is not widened. Lungs are clear. No infiltrates nor obvious pleural effusions. IMPRESSION: No acute pulmonary findings on this single AP portable view of the chest. DATA REPOSITORY: RADIATION DOSE DELIVERED: All CT scans at this facility use at least one of these dose optimization techniques: automated exposure control; mA and/or kV adjustment per patient size (includes targeted e xams where dose is matched to clinical indication); or iterative reconstruction.
--- NOTE | 2022-04-30 16:13 | W.ED.GENAD ---
Discharge Plan Disposition Patient Disposition: HOME Condition: Improving Discharge Details Clinical Impression: Heat exhaustion, Dehydration Primary Care Provider: Meche Rey ED Provider: Luis Joaquin Home Meds and New Rx's Prescriptions: New doxycycline hyclate 100 mg capsule 100 mg PO BID 7 Days Qty: 14 0RF No Action omeprazole 20 mg tablet,delayed release (DR/EC) 20 mg PO DAILY cyanocobalamin (vitamin B-12) 1,000 mcg tablet 1,000 mcg PO DAILY ibuprofen 600 mg tablet 600 mg PO TID PRN (Reason: fever or pain) Qty: 90 3RF vitamin B complex 1 EACH tablet 1 ea PO DAILY Rx Instructions: [facility] aspirin 81 MG tablet,delayed release (DR/EC) 81 mg PO DAILY Rx Instructions: [facility] vit d3 1 tab PO DAILY Label Comments: pt unsure if 500IU or 1000 IU atenolol 50 mg tablet 50 mg PO DAILY Qty: 90 3RF Rx Instructions: for migraine prevention bupropion HCl [Wellbutrin SR] 100 mg tablet sustained-release 12 hr 100 mg PO QAM Qty: 90 3RF Rx Instructions: Trial multivitamin 1 EACH capsule 1 ea PO DAILY calcium carbonate [Calcium 500] 500 mg calcium (1,250 mg) Tablet Discharge Instructions Instructions: Dehydration (ED) Additional Instructions: Please rest and stay hydrated. Please take medications as prescribed. If you develop worsening symptoms please return to the emergency department. Medical Decision Making 41-year-old male history of obesity, GERD brought in by family for presyncopal sensation, was sitting out in the sun drinking a beer at a green party had very little to eat this morning is not drinking water, felt lightheaded sweaty and shaky, no chest pain or shortness of breath no headache no abdominal pain, patient is alert and oriented feeling better now that he is resting and drinking water, hemodynamically stable, warm dry skin on examination, consider dehydration versus orthostasis versus electrolyte abnormality versus heat exhaustion, low suspicion for ACS PE aortic pathology or CVA. Low suspicion for infectious etiology given no infectious symptoms at this time. Will allow patient to rest, IV fluids, basic labs EKG close reassessment. Likely discharge home with care instructions 20: 38 patient resting comfortably heart rate greatly improved. Clinically greatly improved alert oriented nontoxic nonmeningeal. Given first dose of doxycycline for possible early cellulitis of right lower extremity. Hemodynamically stable no respiratory distress. Counseled to remain hydrated and rest over the next day. Given strict return precautions for any worsening symptoms. HPI General Date/Time Provider Initiated Documentation: 04/30/22 16:11. HPI Narrative: 41-year-old male history of obesity, GERD, presents with presyncopal sensation in the setting of being outside at a green party sitting in the sun drinking a beer, patient did not have much to eat this morning and not been staying hydrated, felt shaky and sweaty and lightheaded denies chest pain shortness of breath headache nausea or vomiting. Prenotification from family member who is a nurse practitioner informed us that patient may not be able to walk on his own as he was too shaky and lightheaded in route. Currently patient is feeling much better now that he is drinking a bottle of water. Related Data Home Medications Medication Instructions Recorded Confirmed multivitamin 1 ea PO DAILY 01/19/13 03/01/22 aspirin 81 mg tablet,delayed 81 mg PO DAILY 04/29/13 03/01/22 release vitamin B complex 1 ea PO DAILY 04/29/13 03/01/22 Vit D3 1 tab PO DAILY 04/19/15 03/01/22 calcium carbonate 500 mg calcium 07/01/19 03/01/22 (1,250 mg) tablet (Calcium 500) cyanocobalamin (vitamin B-12) 1,000 mcg PO DAILY 01/25/21 03/01/22 1,000 mcg tablet omeprazole 20 mg tablet,delayed 20 mg PO DAILY 01/25/21 03/01/22 release atenolol 50 mg tablet 50 mg PO DAILY #90 tab-caps 08/09/21 03/01/22 bupropion HCl 100 mg tablet,12 hr 100 mg PO QAM #90 tabs 08/09/21 03/01/22 sustained-release (Wellbutrin SR) ibuprofen 600 mg tablet 600 mg PO TID PRN fever or pain 03/16/22 03/16/22 #90 tabs doxycycline hyclate 100 mg capsule 100 mg PO BID 7 days #14 caps 04/30/22 Previous Rx's Medication Instructions Recorded atenolol 50 mg tablet 50 mg PO DAILY #90 tab-caps 08/09/21 bupropion HCl 100 mg tablet,12 hr 100 mg PO QAM #90 tabs 08/09/21 sustained-release (Wellbutrin SR) ibuprofen 600 mg tablet 600 mg PO TID PRN fever or pain 03/16/22 #90 tabs doxycycline hyclate 100 mg capsule 100 mg PO BID 7 days #14 caps 04/30/22 Allergies Allergy/AdvReac Type Severity Reaction Status Date / Time No Known Allergies Allergy Verified 03/16/22 15:26 General GLORIA: 3 Review of Systems Narrative: Review of Systems Constitutional: negative Eyes: negative ENT: negative Cardiovascular: Near syncope Respiratory: negative Gastrointestinal: negative : negative Musculoskeletal: negative Skin: negative Neurologic: negative Psych: negative PFSH All Active Problems (Updated 04/30/22 @ 20:40 by Luis Joaquin MD) Heat exhaustion (Acute) Dehydration (Acute) Elbow pain, left (Acute) Chronic worsened, Declines meds, Tick bite (Acute) Decreased exercise tolerance (Acute) Apnea, transient (Acute) History of COVID-19 (Acute) Oct 2021 (?), mild. Shortness of breath on exertion (Acute) Hypertensive retinopathy of both eyes (Acute 09/26/21) Radiculitis, thoracic (Acute) RAJEEV on CPAP (Chronic) Needs machine eval, > 10 yrs old. Used regularly. Left shoulder pain (Acute) Periodic heart flutter (Acute) Tingling of skin (Acute) Screening for cholesterol level (Acute) Right upper quadrant abdominal pain (Acute) Infected insect bite (Acute) Tubular adenoma of colon (Acute) [facility] Upper back pain (Acute) Burning pain, with radiating pain down both upper arms. Right shoulder pain (Acute) Gastrocnemius strain, left (Acute) GERD (gastroesophageal reflux disease) (Chronic) With Gastritis Gastritis (Acute) Morbid obesity (Chronic) a. S/P gastric sleeve procedure, January 2013, [facility]. b. 150-pound weight loss in the last 12 months. Diaphragmatic hernia (Acute 07/02/12) 06/18/12 [facility] ON EGD Migraine (Acute 12/13/11) Swelling of arm (Acute 06/27/17) Unspecified sleep apnea (Acute 12/13/11) BIPAP, repeat sleep study 07/2013 s/p weight loss Umbilical hernia (Acute 12/13/11) Primary osteoarthritis of left elbow (Acute) 10/29/18 [facility]-Dr Falk .. 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 Family History Father Hypertensive disorder, systemic arterial Obesity History of dissecting abdominal aortic aneurysm (AAA) repair Paternal Grandfather Prostate cancer Maternal Grandfather Diabetes Hypertension Paternal Grandmother Breast cancer Lung cancer Mother Hypertension Social History Smoking/Tobacco Use Status: Former Tobacco Use Quit Date: 10/08/03 Tobacco: How many years used: 6 Second Hand Exposure: No Smoking risk assessment performed?: Yes Alcohol Intake: current Alcohol Intake frequency: a few times a week Alcohol type: beer Drug use: Never Substance use type: does not use Adopted: No Caregiver/Support person: No Foster care: No Household members: spouse and children Housing: house Number of Children: 2 Communication Needs: Corrective Lenses Education Level: high school Do you need help understanding health information?: Often 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 Pets and animals: Yes Pets and animals: dog(s) Sexually active: Yes Do you think of yourself as: straight/heterosexual Current gender identity: male What is your relationship status?: How often do you talk on the phone with friends or family?: three or more times per week How often do you get together with friends or relatives?: three or more times per week How often do you attend yazdanism or lutheran services?: 1-3 times per year Panel score (0-1 are the most socially isolated patients): 2 What type of physical activity do you participate in: other Details: climbing in and out of truck/up and down ladder w/work-[employer] Duration: 15-30 minutes/day Frequency: 5-6 times per week Special gabriel needs: No Seatbelt use: sometimes Helmet use: Yes (sometimes) Helmet use: sometimes Drive intox or ride w/intox route cdl driver: No Water heater temp set <120 deg: Yes Working smoke detector in home: Yes Fire extinguisher in home: Yes Carbon monox detector in home: Yes Do you feel safe at home: Yes Do you feel safe in your relationship?: Yes Exam Narrative Exam Narrative: Physical Examination General: alert, awake, cooperative, resting comfortably, no acute distress HEENT: normocephalic, atraumatic; PERRL, EOM intact, conjunctiva normal; no nasal discharge; moist mucous membranes, oral and pharyngeal mucosa normal, tolerating secretions Neck: supple, trachea midline; full ROM Chest: normal to inspection Respiratory: normal respiratory effort, speaking in full sentences, clear to auscultation, no wheezing, rales or rhonchi Cardiac: regular rate, regular rhythm, S1S2 intact, no murmurs rubs or gallops GI: abdomen soft, non-tender, non-distended; no palpable mass or hepatosplenomegaly Skin: Warm to the touch, slightly dry Neuro: AAOx3, normal speech, moving all extremities; cranial nerves II through XII intact, 5-5 strength upper and lower extremities, able to ambulate from wheelchair to bed without assistance no ataxia Psych: Appropriate mood and affect
[2022-04-30] MEDS: Normal Saline 1,000 ML 1000 ML IV (16:50)
[2022-04-30 16:52] LABS: Abs Immature Grans 0.04 10^3/uL (0.0-0.06); Absolute Neutrophil Count 10.34 10^3/uL (1.2-6.7); Basophils % 0.2; Eosinophils % 0.7; HCT 45.5 % (40.0-50.0); HGB 15.4 g/dL (13.5-17.5); Immature Grans % 0.3; Lymphocytes % 9.6; MCH 29.3 pg (27.0-33.0); MCHC 33.8 % (32.0-36.0); MCV 87 fL (80-95); MPV 11.7 fL (8.0-11.0); Neutrophils % 85.2; Platelet Count 183 10^3/uL (130-400); RBC 5.25 10^6/uL (4.36-5.78); RDW 13.1 % (11.8-14.1); RDW-SD 41.1 fL; WBC 12.14 10^3/uL (4.4-10.8)
[2022-04-30 16:53] LABS: Absolute Basophil Count 0.02 10^3/uL (0.0-0.2); Absolute Eosinophil Count 0.08 10^3/uL (0.0-0.7); Absolute Lymphocyte Count 1.17 10^3/uL (1.2-3.4); Absolute Monocyte Count 0.49 10^3/uL (0.1-0.8)
[2022-04-30] MEDS: Ondansetron 4 MG/2 ML VIAL IVP (16:54)
[2022-04-30] MEDS: Aspirin 81 MG CHEW 324 MG CH (16:55)
[2022-04-30 17:06] LABS: PTT Activated 25.8 sec (21.0-27.5); Prothrombin Time 10.2 sec (9.3-11.0)
[2022-04-30 17:08] LABS: ALT 48 U/L (16-63); AST 23 U/L (15-37); Albumin 3.6 g/dL (3.4-5.0); Alkaline Phosphatase 106 U/L (46-116); Anion Gap 7.4 mmol/L (3-11); BUN 22 mg/dL (7-18); Bilirubin, Total 0.4 mg/dL (0.2-1.0); CO2 29.6 mmol/L (21.0-32.0); CREATININE 1.1 mg/dL (0.70-1.30); Calcium 8.6 mg/dL (8.5-10.1); Chloride 101 mmol/L (98-107); Glucose 92 mg/dL (74-106); Potassium 4.2 mmol/L (3.5-5.1); Sodium 138 mmol/L (136-145); Total Protein 7.1 g/dL (6.4-8.2)
[2022-04-30 17:10] LABS: ETHANOL BLOOD 7.8 mg/dL (<10); Lipase 60 U/L (73-393); Troponin I < 50 ng/L (<or=60)
[2022-04-30 17:41] LABS: COVID-19 PCR Negative (Negative); Influenza A PCR Negative (Negative); Influenza B PCR Negative (Negative); RSV PCR Negative (Negative)
[2022-04-30] MEDS: Ibuprofen 800 MG TAB PO (17:47)
--- NOTE | 2022-04-30 18:16 | DI.VRAD_ITS ---
PROCEDURE INFORMATION: Exam: XR Chest Exam date and time: 04/30/2022 5:39 PM Age: 41 years old Clinical indication: Pain; Other: Near syncope TECHNIQUE: Imaging protocol: Radiologic exam of the chest. Views: 1 view. COMPARISON: CR XR CHEST 2V PA LATERAL 07/22/2018 12:08 PM FINDINGS: Airway: The airways are patent. Lungs: Lungs are clear. Pleural spaces: No pleural effusions or pneumothorax. Heart/Mediastinum: Heart is of normal size and morphology. Bones/joints: No acute skeletal abnormality or aggressive osseous lesion. IMPRESSION: No acute thoracic pathology. Dictated and Authenticated by: Khang Florence MD. Ordering:JOHN Smith MD
[2022-04-30 20:12] LABS: Troponin I < 50 ng/L (<or=60)
--- NOTE | 2022-05-01 08:40 | NUR.NOTE ---
Faxed lab results to [facility] per Jose Rey.Nursing Note:
--- NOTE | 2022-05-01 09:02 | W.ED.FU ---
Date of service: 05/01/22 Time of Service: 09:02 Follow Up Plan: I received pulmonary blood cultures, aerobic bottle positive with gram-positive cocci in chains. I contacted the patient at 0818 on his cell phone, there is no answer, I left a message. His results were then faxed to his PCP at 0820. Patient called me back at 0900, reports that he is still not feeling well, has had body aches, subjective fever, etc. We discussed his positive pulmonary blood cultures and his ongoing symptoms. We recommended that he come back to the ER for further evaluation. Patient states that he plans to take a shower first, will then contact his to get a ride to the ER in the next 1-2 hours.
== END 2022-04-30 20:58 | disposition home or self-care (01) ==
PROVIDERS: Emergency Provider Emergency Medicine; PCP Nurse Practitioner
DX: E86.0 Dehydration (principal); T67.5XXA Heat exhaustion, unspecified, initial encounter; Z20.822 Contact with and (suspected) exposure to COVID-19; Z87.891 Personal history of nicotine dependence; X30.XXXA Exposure to excessive natural heat, initial encounter; Y92.89 Other specified places as the place of occurrence of the external cause; R55 Syncope and collapse
CPT/HCPCS: 36415; 36416; 80053; 82962; 83690; 87040; 87077; 87637; 93005; 96361; 96374; 99284; 71045; 80320; 84484; 85025; 85610; 85730; 93010; 99285; J2405

== ENCOUNTER 2022-05-01 10:42 | Inpatient (IN) | payer BC, SELFPAY ==
--- NOTE | 2022-05-01 10:45 | DI.RAD_ITS ---
Exam(s) XR PORTABLE CHEST AP EXAM: XR PORTABLE CHEST AP CLINICAL HISTORY: fever. TECHNIQUE: 2D digital imaging was performed. COMPARISON: CR,XR XR PORTABLE CHEST AP from 04/30/2022 FINDINGS: Single AP portable view. Heart size is upper normal. The mediastinum is not widened. Lungs are clear. No infiltrates nor obvious pleural effusions. IMPRESSION: No acute pulmonary findings on this single AP portable view of the chest. DATA REPOSITORY: RADIATION DOSE DELIVERED: All CT scans at this facility use at least one of these dose optimization techniques: automated exposure control; mA and/or kV adjustment per patient size (includes targeted e xams where dose is matched to clinical indication); or iterative reconstruction.
[2022-05-01 10:46] VITALS: BP 144/99; PULSE 92; RESP 17; TEMP 36.1; O2SAT 96
--- NOTE | 2022-05-01 10:55 | W.ED.GENAD ---
Discharge Plan Disposition Patient Disposition: [facility] INPATIENT Condition: Serious Discharge Details Chief Complaint: Fever Clinical Impression: Bacteremia, Cellulitis of right leg Primary Care Provider: Meche Rey ED Provider: Jose Gonzalez Home Meds and New Rx's Prescriptions: No Action omeprazole 20 mg tablet,delayed release (DR/EC) 20 mg PO DAILY cyanocobalamin (vitamin B-12) 1,000 mcg tablet 1,000 mcg PO DAILY ibuprofen 600 mg tablet 600 mg PO TID PRN (Reason: fever or pain) Qty: 90 3RF vitamin B complex 1 EACH tablet 1 ea PO DAILY Rx Instructions: [facility] aspirin 81 MG tablet,delayed release (DR/EC) 81 mg PO DAILY Rx Instructions: [facility] vit d3 1 tab PO DAILY Label Comments: pt unsure if 500IU or 1000 IU atenolol 50 mg tablet 50 mg PO DAILY Qty: 90 3RF Rx Instructions: for migraine prevention bupropion HCl [Wellbutrin SR] 100 mg tablet sustained-release 12 hr 100 mg PO QAM Qty: 90 3RF Rx Instructions: Trial multivitamin 1 EACH capsule 1 ea PO DAILY calcium carbonate [Calcium 500] 500 mg calcium (1,250 mg) Tablet doxycycline hyclate 100 mg capsule 100 mg PO BID 7 Days Qty: 14 0RF Medical Decision Making 41-year-old gentleman presenting at the request of the ER for positive blood culture, gram-positive cocci. Patient continues to have myalgias, subjective fever, chills, not feeling well. He has not taken his doxycycline for his right lower extremity cellulitis. Will initiate septic work-up, provide IV Tylenol, fluids, Rocephin and vancomycin. Will need admission for bacteremia. Laboratory values reveal a white blood cell count of 13.73 which is increasing from yesterday. Absolute neutrophils 12.73. Lactate 1.6. Sodium 135 potassium 4.0 creatinine 1.2 with a GFR greater than 60, procalcitonin 2.9. COVID, flu, RSV negative. Chest x-ray unremarkable. Case discussed with our hospitalist, Dr. Dia, who is agreeable to admit the patient and will place orders This documentation was generated using AVdirectation system, please disregard any oddities of phrase or misspellings. Medical Records Medical records reviewed: Yes I reviewed the patient's medical records. Imaging Data Radiologic Study: Attestation: I personally reviewed and interpreted this imaging study as follows: Imaging: X-Ray Radiologist's impression: Exam(s) XR PORTABLE CHEST AP EXAM:? XR PORTABLE CHEST AP CLINICAL HISTORY: ? fever. ? TECHNIQUE:? 2D digital imaging was performed. COMPARISON:? CR,XR XR PORTABLE CHEST AP from 04/30/2022 FINDINGS: Single AP portable view. Heart size is upper normal.? The mediastinum is not widened. Lungs are clear.? No infiltrates nor obvious pleural effusions. IMPRESSION: No acute pulmonary findings on this single AP portable view of the chest. Lab Data Lab results reviewed: Yes I reviewed the patient's lab results. Labs: 05/01/22 15:10 Blood Blood Culture - Pending 05/01/22 14:20 Blood Blood Culture - Pending Laboratory Tests Range/Units 05/01/22 05/01/22 05/01/22 13:34 14:20 14:20 WBC (4.4-10.8) 10^3/uL RBC (4.36-5.78) 10^6/uL Hgb (13.5-17.5) g/dL Hct (40.0-50.0) % MCV (80-95) fL MCH (27.0-33.0) pg MCHC (32.0-36.0) % RDW (11.8-14.1) % Plt Count (130-400) 10^3/uL MPV (8.0-11.0) fL Immature Gran % Neutrophils % Lymphocytes % Monocytes % Eosinophils % Basophils % Nucleated RBC % (0.0-0.3) % Absolute Neutrophils (1.2-6.7) 10^3/uL Absolute Lymphocytes (1.2-3.4) 10^3/uL Absolute Monocytes (0.1-0.8) 10^3/uL Absolute Eosinophils (0.0-0.7) 10^3/uL Absolute Basophils (0.0-0.2) 10^3/uL VBG Lactate (0.6-1.4) mmol/L 1.6 H Sodium (136-145) mmol/L 135 L Potassium (3.5-5.1) mmol/L 4.0 Chloride (98-107) mmol/L 99 Carbon Dioxide (21.0-32.0) mmol/L 28.0 Anion Gap (3-11) mmol/L 8.0 BUN (7-18) mg/dL 21 H Creatinine (0.70-1.30) mg/dL 1.2 Estimated GFR/1.73 m2 (mL/min/1.73m2) >= 60.00 Glucose (74-106) mg/dL 116 H Calcium (8.5-10.1) mg/dL 8.5 Total Bilirubin (0.2-1.0) mg/dL 0.6 AST (15-37) U/L 27 ALT (16-63) U/L 46 Alkaline Phosphatase (46-116) U/L 79 Total Protein (6.4-8.2) g/dL 7.2 Albumin (3.4-5.0) g/dL 3.4 Procalcitonin ng/mL 2.9 COVID-19 Source Nasopharynx SARS-CoV-2 (PCR) (Negative) Negative Influenza Type A (PCR) (Negative) Negative Influenza Type B (PCR) (Negative) Negative RSV (PCR) (Negative) Negative Range/Units 05/01/22 14:20 WBC (4.4-10.8) 10^3/uL 13.73 H RBC (4.36-5.78) 10^6/uL 5.20 Hgb (13.5-17.5) g/dL 15.2 Hct (40.0-50.0) % 45.9 MCV (80-95) fL 88 MCH (27.0-33.0) pg 29.2 MCHC (32.0-36.0) % 33.1 RDW (11.8-14.1) % 13.4 Plt Count (130-400) 10^3/uL 141 MPV (8.0-11.0) fL 11.3 H Immature Gran % 0.5 Neutrophils % 92.7 Lymphocytes % 4.6 Monocytes % 2.0 Eosinophils % 0.0 Basophils % 0.2 Nucleated RBC % (0.0-0.3) % 0.0 Absolute Neutrophils (1.2-6.7) 10^3/uL 12.73 H Absolute Lymphocytes (1.2-3.4) 10^3/uL 0.63 L Absolute Monocytes (0.1-0.8) 10^3/uL 0.27 Absolute Eosinophils (0.0-0.7) 10^3/uL 0.00 Absolute Basophils (0.0-0.2) 10^3/uL 0.03 VBG Lactate (0.6-1.4) mmol/L Sodium (136-145) mmol/L Potassium (3.5-5.1) mmol/L Chloride (98-107) mmol/L Carbon Dioxide (21.0-32.0) mmol/L Anion Gap (3-11) mmol/L BUN (7-18) mg/dL Creatinine (0.70-1.30) mg/dL Estimated GFR/1.73 m2 (mL/min/1.73m2) Glucose (74-106) mg/dL Calcium (8.5-10.1) mg/dL Total Bilirubin (0.2-1.0) mg/dL AST (15-37) U/L ALT (16-63) U/L Alkaline Phosphatase (46-116) U/L Total Protein (6.4-8.2) g/dL Albumin (3.4-5.0) g/dL Procalcitonin ng/mL COVID-19 Source SARS-CoV-2 (PCR) (Negative) Influenza Type A (PCR) (Negative) Influenza Type B (PCR) (Negative) RSV (PCR) (Negative) HPI General Mode of arrival: ambulatory. Date/Time Provider Initiated Documentation: 05/01/22 10:52. Limitations to Documentation: no limitations. Information obtained by: patient. HPI Narrative: This is a 41-year-old gentleman, past medical history of obesity, GERD, hypertension, who was seen in the ER yesterday for concern of dehydration and cellulitis, did not fill his doxycycline, presents to the ER now after being called with a positive blood culture. Patient reports that he continues to have myalgias, subjective fever, chills, simply not feeling well. He is vaccinated against COVID and had a negative COVID test yesterday. He reports headache but does have a history of migraines. He denies taking any medications prior to arrival. He denies any visual changes, neck pain, chest pain, shortness of breath abdominal pain, nausea, vomiting, change in bowel or bladder function, numbness, tingling, weakness Related Data Home Medications Medication Instructions Recorded Confirmed multivitamin 1 ea PO DAILY 01/19/13 05/01/22 aspirin 81 mg tablet,delayed 81 mg PO DAILY 04/29/13 05/01/22 release vitamin B complex 1 ea PO DAILY 04/29/13 05/01/22 Vit D3 1 tab PO DAILY 04/19/15 05/01/22 calcium carbonate 500 mg calcium 07/01/19 03/01/22 (1,250 mg) tablet (Calcium 500) cyanocobalamin (vitamin B-12) 1,000 mcg PO DAILY 01/25/21 05/01/22 1,000 mcg tablet omeprazole 20 mg tablet,delayed 20 mg PO DAILY 01/25/21 05/01/22 release atenolol 50 mg tablet 50 mg PO DAILY #90 tab-caps 08/09/21 05/01/22 bupropion HCl 100 mg tablet,12 hr 100 mg PO QAM #90 tabs 08/09/21 05/01/22 sustained-release (Wellbutrin SR) ibuprofen 600 mg tablet 600 mg PO TID PRN fever or pain 03/16/22 05/01/22 #90 tabs doxycycline hyclate 100 mg capsule 100 mg PO BID 7 days #14 caps 04/30/22 05/01/22 Previous Rx's Medication Instructions Recorded atenolol 50 mg tablet 50 mg PO DAILY #90 tab-caps 08/09/21 bupropion HCl 100 mg tablet,12 hr 100 mg PO QAM #90 tabs 08/09/21 sustained-release (Wellbutrin SR) ibuprofen 600 mg tablet 600 mg PO TID PRN fever or pain 03/16/22 #90 tabs doxycycline hyclate 100 mg capsule 100 mg PO BID 7 days #14 caps 04/30/22 Allergies Allergy/AdvReac Type Severity Reaction Status Date / Time No Known Allergies Allergy Verified 05/01/22 10:52 General Stated Complaint: Fever GLORIA: 3 Review of Systems Constitutional Constitutional: Reports fatigue, Reports fever(s), Reports headache(s) and Reports weakness (Generalized) ENT Ears, Nose, Mouth, and Throat: Reports headache(s) and Denies neck pain Cardiovascular Cardiovascular: Denies chest pain and Denies dyspnea Respiratory Respiratory: Denies cough and Denies dyspnea Gastrointestinal Gastrointestinal: Denies abdominal pain, Denies nausea and Denies vomiting Musculoskeletal Musculoskeletal: Denies back pain, Denies neck pain, Denies numbness and Denies tingling Integumentary/Breasts Skin/Breast: Reports erythema Neurologic Neurologic: Reports headache(s), Denies numbness, Denies tingling and Reports weakness (Generalized) Endocrine Endocrine: Reports fatigue Hematologic/Lymphatic Hematologic/Lymphatic: Denies easy bleeding and Denies easy bruising FORMERLY [facility], 1928–1983 All Active Problems (Updated 05/01/22 @ 15:35 by AUGUSTA Romo) Heat exhaustion (Acute) Dehydration (Acute) Bacteremia (Acute) Cellulitis of right leg (Acute) Elbow pain, left (Acute) Chronic worsened, Declines meds, Tick bite (Acute) Decreased exercise tolerance (Acute) Apnea, transient (Acute) History of COVID-19 (Acute) Oct 2021 (?), mild. Shortness of breath on exertion (Acute) Hypertensive retinopathy of both eyes (Acute 09/26/21) Radiculitis, thoracic (Acute) RAJEEV on CPAP (Chronic) Needs machine eval, > 10 yrs old. Used regularly. Left shoulder pain (Acute) Periodic heart flutter (Acute) Tingling of skin (Acute) Screening for cholesterol level (Acute) Right upper quadrant abdominal pain (Acute) Infected insect bite (Acute) Tubular adenoma of colon (Acute) LR GI Upper back pain (Acute) Burning pain, with radiating pain down both upper arms. Right shoulder pain (Acute) Gastrocnemius strain, left (Acute) GERD (gastroesophageal reflux disease) (Chronic) With Gastritis Gastritis (Acute) Morbid obesity (Chronic) a. S/P gastric sleeve procedure, January 2013, [facility]. b. 150-pound weight loss in the last 12 months. Diaphragmatic hernia (Acute 07/02/12) 06/18/12 [facility] ON EGD Migraine (Acute 12/13/11) Swelling of arm (Acute 06/27/17) Unspecified sleep apnea (Acute 12/13/11) BIPAP, repeat sleep study 07/2013 s/p weight loss Umbilical hernia (Acute 12/13/11) Primary osteoarthritis of left elbow (Acute) 10/29/18 [facility]-Dr Falk .. 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,Dr Mccall Medical History Arm erythema (06/27/17) Body aches Cellulitis of lower extremity Hemoptysis Hiatal hernia EGD/colonoscopy 05/09/19 [facility] moderate High fever Left lower lobe pneumonia Surgical History Bariatric Sleeve, [facility] 01/2013 History of endoscopy upper History of placement of ear tubes Hx of colonoscopy L elbow and shoulder bone spur repair, Kirsty Ventral Hernia repair, [facility] 01/2013 pt denies/states he never had this done. Family History Father Hypertensive disorder, systemic arterial Obesity History of dissecting abdominal aortic aneurysm (AAA) repair Paternal Grandfather Prostate cancer Maternal Grandfather Diabetes Hypertension Paternal Grandmother Breast cancer Lung cancer Mother Hypertension Social History Smoking/Tobacco Use Status: Former Tobacco Use Quit Date: 10/08/03 Tobacco: How many years used: 6 Second Hand Exposure: No Smoking risk assessment performed?: Yes Alcohol Intake: current Alcohol Intake frequency: a few times a week Alcohol type: beer Drug use: Never Substance use type: does not use Adopted: No Caregiver/Support person: No Foster care: No Household members: spouse and children Housing: house Number of Children: 2 Communication Needs: Corrective Lenses Education Level: high school Do you need help understanding health information?: Often 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 Pets and animals: Yes Pets and animals: dog(s) Sexually active: Yes Do you think of yourself as: straight/heterosexual Current gender identity: male What is your relationship status?: How often do you talk on the phone with friends or family?: three or more times per week How often do you get together with friends or relatives?: three or more times per week How often do you attend faith or islam services?: 1-3 times per year Panel score (0-1 are the most socially isolated patients): 2 What type of physical activity do you participate in: other Details: climbing in and out of truck/up and down ladder w/work-[employer] Duration: 15-30 minutes/day Frequency: 5-6 times per week Special gabriel needs: No Seatbelt use: sometimes Helmet use: Yes (sometimes) Helmet use: sometimes Drive intox or ride w/intox route delivery driver: No Water heater temp set <120 deg: Yes Working smoke detector in home: Yes Fire extinguisher in home: Yes Carbon monox detector in home: Yes Do you feel safe at home: Yes Do you feel safe in your relationship?: Yes Exam Const General: cooperative and no acute distress Orientation: alert, awake and oriented x3 HENMT Head: normal to inspection, normocephalic and atraumatic Face and sinus: normal facial exam Mouth: moist mucous membranes Throat: posterior oropharynx normal Eyes General: appearance normal, both eyes and all related structures Conjunctivae: conjunctivae normal Neck Neck: normal visual inspection, full ROM, no meningeal signs, trachea midline and supple Resp Effort & Inspection: normal respiratory effort and able to speak in complete sentences Auscultation: clear to auscultation bilaterally Cardio Rate: regular rate Rhythm: regular rhythm GI Inspection: obesity Palpation: soft, not firm, no guarding and nontender Back/Spine/Pelvis Back: No back tenderness Skin General skin exam: erythema Neuro General: patient alert, patient awake, moves all extremities and no focal motor deficits Cognition: normal cognition Speech: speech normal Gait: normal gait Motor: muscle tone normal throughout Sensory Exam: no sensory deficits noted Extrem General: full ROM, capillary refill normal, no pedal edema, no calf tenderness and other (Negative Homans' sign) Upper/lower leg/hip images: 1. Circumferential erythema, warmth, tenderness. Skin is intact. No pedal edema. Negative Homans' sign. Normal capillary refill and dorsalis pedal pulse Psych Appearance: grossly normal Mental Status: mental status grossly normal Course Vital Signs Vital signs: Vital Signs Temperature 36.1 C L 05/01/22 10:46 Pulse 92 H 05/01/22 10:46 Respiratory Rate 17 05/01/22 10:46 Blood Pressure 144/99 H 05/01/22 10:46 Pulse Oximetry 96 05/01/22 10:46 Temperature 36.1 C L 05/01/22 10:46 Temperature Source Temporal Artery Scan 05/01/22 10:46 Pulse 92 H 05/01/22 10:46 Respiratory Rate 17 05/01/22 10:46 Blood Pressure 144/99 H 05/01/22 10:46 Blood Pressure Position Sitting 05/01/22 10:46 Pulse Oximetry 96 05/01/22 10:46 Oxygen Delivery Method Room Air 05/01/22 10:46 Oxygen Flow Rate 0 05/01/22 10:46 Pain Level 0 05/01/22 10:46
--- NOTE | 2022-05-01 11:30 | PDOC.ERCMPRO ---
- If Service Date Differs Date of service: 05/01/22 Time of Service: 11:31 Care Management Progress Note SBIRT screen: negative (audit 3)
[2022-05-01 13:00] VITALS: RESP 18
[2022-05-01 13:11] VITALS: BP 138/92; PULSE 82; RESP 18; TEMP 37.2; O2SAT 95
--- NOTE | 2022-05-01 13:54 | NUR.NOTE ---
Nursing Note: Patient returns after visit last night - received call that blood cultures were positive. Unable to obtain bloodwork/line at this time, anesthesia is coming down to attempt.
[2022-05-01 14:19] LABS: COVID-19 PCR Negative (Negative); Influenza A PCR Negative (Negative); Influenza B PCR Negative (Negative); RSV PCR Negative (Negative)
[2022-05-01 14:29] LABS: Lactate 1.6 mmol/L (0.6-1.4)
[2022-05-01 14:32] LABS: Abs Immature Grans 0.07 10^3/uL (0.0-0.06); Absolute Basophil Count 0.03 10^3/uL (0.0-0.2); Absolute Lymphocyte Count 0.63 10^3/uL (1.2-3.4); Absolute Monocyte Count 0.27 10^3/uL (0.1-0.8); Absolute Neutrophil Count 12.73 10^3/uL (1.2-6.7); Basophils % 0.2; HCT 45.9 % (40.0-50.0); HGB 15.2 g/dL (13.5-17.5); Immature Grans % 0.5; Lymphocytes % 4.6; MCH 29.2 pg (27.0-33.0); MCHC 33.1 % (32.0-36.0); MCV 88 fL (80-95); MPV 11.3 fL (8.0-11.0); Neutrophils % 92.7; Platelet Count 141 10^3/uL (130-400); RDW 13.4 % (11.8-14.1); RDW-SD 43.2 fL; WBC 13.73 10^3/uL (4.4-10.8)
[2022-05-01] MEDS: Normal Saline 1,000 ML 1000 ML IV (14:45)
[2022-05-01] MEDS: ACETAMINOPHEN 1,000 MG/100 ML BTL 400 MG IVPB (14:45)
[2022-05-01 14:46] LABS: ALT 46 U/L (16-63); AST 27 U/L (15-37); Albumin 3.4 g/dL (3.4-5.0); Alkaline Phosphatase 79 U/L (46-116); BUN 21 mg/dL (7-18); Bilirubin, Total 0.6 mg/dL (0.2-1.0); CREATININE 1.2 mg/dL (0.70-1.30); Calcium 8.5 mg/dL (8.5-10.1); Chloride 99 mmol/L (98-107); Glucose 116 mg/dL (74-106); Sodium 135 mmol/L (136-145); Total Protein 7.2 g/dL (6.4-8.2)
[2022-05-01 15:03] LABS: Procalcitonin 2.9 ng/mL
[2022-05-01 15:18] LABS: Source Nasopharynx
[2022-05-01] MEDS: VANCOMYCIN/WATER (PEG) 2 GM/400 ML BAG IVPB (15:23)
[2022-05-01 17:25] VITALS: BP 116/76; PULSE 83; RESP 20; TEMP 38.6; O2SAT 98
[2022-05-01] MEDS: cefTRIAXone 2 GM/50 ML BAG IVPB (17:26)
[2022-05-01] MEDS: Enoxaparin 40 MG/0.4 ML SYR SC (18:17)
--- NOTE | 2022-05-01 18:39 | W.PM.HP.N ---
Date of service: 05/01/22 Time of Service: 18:39 Assessment and Plan Assessment and plan (1) Cellulitis of right leg: Status: Acute Assessment and plan: Single blood culture bottle (aerobic) growing gram + cocci in chains. On Zosyn. Also on Vancomycin. Blood culture likely contaminant. MRSA screen ordered. Monitor WBC. Ongoing fever; acetaminophen and/or ibuprofen prn. (2) RAJEEV on CPAP: Status: Chronic Assessment and plan: Home CPAP being brought in. (3) Morbid obesity: Status: Chronic Assessment and plan: No specific intervention. (4) Swelling of arm: Status: Acute Assessment and plan: Firm chronic swelling from calcium deposit posteriorly. Soft tissue swelling anteriorly. Question of infiltration of IV placed in ED vs DVT. US ordered. (5) Discharge planning issues: Status: Acute Assessment and plan: Likely home in the next 1-2 days on oral antibiotic. History of Present Illness History of Present Illness Chief Complaint: Fever, positive blood culture Narrative: This is a 41 yo male with a H cellulitis, morbid obesity,HTN, GERD, RAJEEV, hypertensive retinopathy. He was initially seen the night before admission in the ED and prescribed doxycycline. Pt states the pharmacy did not notify him that the script was ready so no dose had been taken by the time he presented again with ongoing fever, myalgias, headache and generalized malaise. The aerobic blood culture bottle from the previous nights lab growing a gram + cocci in chains. His WBC cell was 13.9 (12 the previous night). Covid neg. Creatinine 1.2 (baseline of appx 0.9). He was given a 1L bolus of NS in the ED. rocephin and Vancomycin initaited in the ED. He denies any trauma to the RLE; no ulcerations/abrasions. No N/V/abd pain. No urinary symptoms. No SOA/cough. Review of Systems All systems reviewed & are unremarkable except as noted in HPI and below PFSH All Active Problems (Updated 05/01/22 @ 18:41 by Luis Dia MD) Discharge planning issues (Acute) Heat exhaustion (Acute) Dehydration (Acute) Bacteremia (Acute) Cellulitis of right leg (Acute) Elbow pain, left (Acute) Chronic worsened, Declines meds, Tick bite (Acute) Decreased exercise tolerance (Acute) Apnea, transient (Acute) History of COVID-19 (Acute) Oct 2021 (?), mild. Shortness of breath on exertion (Acute) Hypertensive retinopathy of both eyes (Acute 09/26/21) Radiculitis, thoracic (Acute) RAJEEV on CPAP (Chronic) Needs machine eval, > 10 yrs old. Used regularly. Left shoulder pain (Acute) Periodic heart flutter (Acute) Tingling of skin (Acute) Screening for cholesterol level (Acute) Right upper quadrant abdominal pain (Acute) Infected insect bite (Acute) Tubular adenoma of colon (Acute) [facility] GI Upper back pain (Acute) Burning pain, with radiating pain down both upper arms. Right shoulder pain (Acute) Gastrocnemius strain, left (Acute) GERD (gastroesophageal reflux disease) (Chronic) With Gastritis Gastritis (Acute) Morbid obesity (Chronic) a. S/P gastric sleeve procedure, January 2013, [facility]. b. 150-pound weight loss in the last 12 months. Diaphragmatic hernia (Acute 07/02/12) 06/18/12 [facility] ON EGD Migraine (Acute 12/13/11) Swelling of arm (Acute 06/27/17) Unspecified sleep apnea (Acute 12/13/11) BIPAP, repeat sleep study 07/2013 s/p weight loss Umbilical hernia (Acute 12/13/11) Primary osteoarthritis of left elbow (Acute) 10/29/18 [facility]-Dr Falk .. 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 Family History Father Hypertensive disorder, systemic arterial Obesity History of dissecting abdominal aortic aneurysm (AAA) repair Paternal Grandfather Prostate cancer Maternal Grandfather Diabetes Hypertension Paternal Grandmother Breast cancer Lung cancer Mother Hypertension Social History Smoking/Tobacco Use Status: Former Tobacco Use Quit Date: 10/08/03 Tobacco: How many years used: 6 Second Hand Exposure: No Smoking risk assessment performed?: Yes Alcohol Intake: current Alcohol Intake frequency: a few times a week Alcohol type: beer Drug use: Never Substance use type: does not use Adopted: No Caregiver/Support person: No Foster care: No Household members: spouse and children Housing: house Number of Children: 2 Communication Needs: Corrective Lenses Education Level: high school Do you need help understanding health information?: Often 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 Pets and animals: Yes Pets and animals: dog(s) Sexually active: Yes Do you think of yourself as: straight/heterosexual Current gender identity: male What is your relationship status?: How often do you talk on the phone with friends or family?: three or more times per week How often do you get together with friends or relatives?: three or more times per week How often do you attend anabaptism or catholic services?: 1-3 times per year Panel score (0-1 are the most socially isolated patients): 2 What type of physical activity do you participate in: other Details: climbing in and out of truck/up and down ladder w/work-[employer] Duration: 15-30 minutes/day Frequency: 5-6 times per week Special gabriel needs: No Seatbelt use: sometimes Helmet use: Yes (sometimes) Helmet use: sometimes Drive intox or ride w/intox line driver: No Water heater temp set <120 deg: Yes Working smoke detector in home: Yes Fire extinguisher in home: Yes Carbon monox detector in home: Yes Do you feel safe at home: Yes Do you feel safe in your relationship?: Yes Meds Allergies and Home Medications Allergies Allergy/AdvReac Type Severity Reaction Status Date / Time No Known Allergies Allergy Verified 05/01/22 10:52 Home Medications Medication Instructions Recorded Confirmed Type multivitamin 1 ea PO DAILY 01/19/13 05/01/22 History aspirin 81 mg tablet,delayed 81 mg PO DAILY 04/29/13 05/01/22 History release vitamin B complex 1 ea PO DAILY 04/29/13 05/01/22 History Vit D3 1 tab PO DAILY 04/19/15 05/01/22 History calcium carbonate 500 mg calcium 07/01/19 03/01/22 History (1,250 mg) tablet (Calcium 500) cyanocobalamin (vitamin B-12) 1,000 mcg PO DAILY 01/25/21 05/01/22 History 1,000 mcg tablet omeprazole 20 mg tablet,delayed 20 mg PO DAILY 01/25/21 05/01/22 History release atenolol 50 mg tablet 50 mg PO DAILY #90 tab-caps 08/09/21 05/01/22 Rx bupropion HCl 100 mg tablet,12 hr 100 mg PO QAM #90 tabs 08/09/21 05/01/22 Rx sustained-release (Wellbutrin SR) ibuprofen 600 mg tablet 600 mg PO TID PRN fever or pain 03/16/22 05/01/22 Rx #90 tabs doxycycline hyclate 100 mg capsule 100 mg PO BID 7 days #14 caps 04/30/22 05/01/22 Rx Exam Narrative Exam Narrative: Lying in bed. Flushed face. Conversant. Const General: cooperative and no acute distress Nutritional Appearance: obese Orientation: alert and oriented x3 Eyes General: appearance normal, both eyes and all related structures Sclera: sclerae normal Resp Effort & Inspection: normal respiratory effort Auscultation: clear to auscultation bilaterally Cardio Rate: regular rate Rhythm: regular rhythm Heart Sounds: S1 normal and S2 normal GI Palpation: nontender Skin Full body images: 1. Erythema Neuro General: no focal motor deficits Cranial Nerves: facial strength normal Cognition: normal cognition Speech: speech normal Extrem General: no pedal edema and no calf tenderness Shoulder/upper arm images: 1. Firm subcutaneous mass (known calcinosis). Nontender. 2. soft swelling w/o erythema. Nontender. Psych Appearance: grossly normal Mental Status: mental status grossly normal Speech and Movement: speech and movement normal Affect: normal affect Results Labs Result diagrams: 05/01/22 14:20 05/01/22 14:20 Labs: Laboratory Results - last 24 hr 05/01/22 05/01/22 05/01/22 13:34 14:20 14:20 WBC RBC Hgb Hct MCV MCH MCHC RDW Plt Count MPV Immature Gran % Neutrophils % Lymphocytes % Monocytes % Eosinophils % Basophils % Nucleated RBC % Absolute Neutrophils Absolute Lymphocytes Absolute Monocytes Absolute Eosinophils Absolute Basophils VBG Lactate 1.6 H Sodium 135 L Potassium 4.0 Chloride 99 Carbon Dioxide 28.0 Anion Gap 8.0 BUN 21 H Creatinine 1.2 Estimated GFR/1.73 m2 >= 60.00 Glucose 116 H Calcium 8.5 Total Bilirubin 0.6 AST 27 ALT 46 Alkaline Phosphatase 79 Total Protein 7.2 Albumin 3.4 Procalcitonin 2.9 COVID-19 Source Nasopharynx SARS-CoV-2 (PCR) Negative Influenza Type A (PCR) Negative Influenza Type B (PCR) Negative RSV (PCR) Negative 05/01/22 14:20 WBC 13.73 H RBC 5.20 Hgb 15.2 Hct 45.9 MCV 88 MCH 29.2 MCHC 33.1 RDW 13.4 Plt Count 141 MPV 11.3 H Immature Gran % 0.5 Neutrophils % 92.7 Lymphocytes % 4.6 Monocytes % 2.0 Eosinophils % 0.0 Basophils % 0.2 Nucleated RBC % 0.0 Absolute Neutrophils 12.73 H Absolute Lymphocytes 0.63 L Absolute Monocytes 0.27 Absolute Eosinophils 0.00 Absolute Basophils 0.03 VBG Lactate Sodium Potassium Chloride Carbon Dioxide Anion Gap BUN Creatinine Estimated GFR/1.73 m2 Glucose Calcium Total Bilirubin AST ALT Alkaline Phosphatase Total Protein Albumin Procalcitonin COVID-19 Source SARS-CoV-2 (PCR) Influenza Type A (PCR) Influenza Type B (PCR) RSV (PCR) Last Vital Signs Temp 38.6 C H 05/01/22 17:25 Pulse 83 05/01/22 17:25 Resp 20 05/01/22 17:25 BP 116/76 05/01/22 17:25 Pulse Ox 98 05/01/22 17:25
[2022-05-01] MEDS: Ibuprofen 800 MG TAB PO (19:17)
[2022-05-01] MEDS: Promethazine 25 MG TAB PO (19:17)
[2022-05-01 20:23] LABS: Bilirubin Negative (Negative); Blood Negative (Negative); Clarity Sl Cloudy (Clear); Glucose Negative (Negative); Ketones Trace mg/dL (Negative); Leukocyte Esterase Negative (Negative); Nitrite Negative (Negative); Specific Gravity 1.025 (1.005-1.025); pH 5.5 (5-8)
[2022-05-01 20:32] LABS: Bacteria Few HPF (Negative); C & S Indicated? No; Casts Negative LPF (Negative); Crystals Negative HPF (Negative); Epithelial Cells Moderate HPF (Negative); Mucus Trace (Negative); RBC 0-2 HPF (0-2); WBC 0-2 HPF (0-5)
[2022-05-01 23:05] VITALS: BP 122/73; PULSE 82; RESP 18; TEMP 37.5; O2SAT 91
--- NOTE | 2022-05-02 | DI.US_ITS ---
Exam(s) US LOWER EXTREMITY VENOUS RT EXAM: US LOWER EXTREMITY VENOUS RT CLINICAL HISTORY: swelling and redness TECHNIQUE: Right lower extremity venous ultrasound performed using grayscale, color-flow, and spectr al Doppler analysis. COMPARISON: No exams were available for comparison FINDINGS: The right common femoral, femoral and popliteal veins demonstrate normal compressibility, augmentatio n, and color Doppler. The posterior tibial veins are patent. The saphenofemoral junction is unremark able. There is no evidence of a Landis cyst. The soft tissues are unremarkable. There is a 2.8 x 0.8 x 2.5 cm right inguinal lymph node. IMPRESSION: No right lower extremity DVT. DATA REPOSITORY:
--- NOTE | 2022-05-02 | DI.US_ITS ---
Exam(s) US UPPER EXTREMITY VENOUS LT EXAM: US UPPER EXTREMITY VENOUS LT CLINICAL HISTORY: swelling. TECHNIQUE: Ultrasound examination of the left upper extremity venous system(s) is performed using gr ayscale, color-flow, and spectral Doppler analysis. COMPARISON: US US upper extremity venous LT from 09/30/2018 FINDINGS: The left internal jugular, axillary, subclavian, cephalic, basilic, brachial, radial, and ulnar veins are patent without evidence of thrombosis. IMPRESSION: No left upper extremity DVT. DATA REPOSITORY:
[2022-05-02] MEDS: VANCOMYCIN/WATER (PEG) 2 GM/400 ML BAG IV ×2 (02:00→14:38)
[2022-05-02 06:56] LABS: Lactate 1.5 mmol/L (0.6-1.4)
[2022-05-02 07:06] LABS: Abs Immature Grans 0.03 10^3/uL (0.0-0.06); Absolute Basophil Count 0.02 10^3/uL (0.0-0.2); Absolute Lymphocyte Count 0.57 10^3/uL (1.2-3.4); Absolute Monocyte Count 0.32 10^3/uL (0.1-0.8); Absolute Neutrophil Count 5.58 10^3/uL (1.2-6.7); Basophils % 0.3; HCT 44.3 % (40.0-50.0); HGB 14.4 g/dL (13.5-17.5); Immature Grans % 0.5; Lymphocytes % 8.7; MCH 28.8 pg (27.0-33.0); MCHC 32.5 % (32.0-36.0); MCV 89 fL (80-95); MPV 11.8 fL (8.0-11.0); Monocytes % 4.9; Neutrophils % 85.6; Platelet Count 122 10^3/uL (130-400); RDW 13.3 % (11.8-14.1); RDW-SD 43.8 fL; WBC 6.52 10^3/uL (4.4-10.8)
[2022-05-02 07:18] LABS: Anion Gap 8.8 mmol/L (3-11); BUN 19 mg/dL (7-18); CO2 26.2 mmol/L (21.0-32.0); CREATININE 1.1 mg/dL (0.70-1.30); Calcium 8.5 mg/dL (8.5-10.1); Chloride 101 mmol/L (98-107); Glucose 104 mg/dL (74-106); Potassium 3.8 mmol/L (3.5-5.1); Sodium 136 mmol/L (136-145)
[2022-05-02 07:19] VITALS: BP 138/78; PULSE 58; RESP 18; TEMP 39.4; O2SAT 73
[2022-05-02] MEDS: Ibuprofen 800 MG TAB PO ×2 (07:24→20:16)
[2022-05-02 07:25] VITALS: TEMP 39.6
[2022-05-02] MEDS: Acetaminophen 325 MG TAB PO (07:25)
[2022-05-02] MEDS: cefTRIAXone 1 GM/50 ML BAG IVPB (08:18)
--- NOTE | 2022-05-02 08:29 | PDOC.CMIN ---
- If Service Date Differs Date of service: 05/02/22 Time of Service: 08:29 Care Management Initial Assess REASON FOR HOSPITALIZATION:: Cellulites PAST MEDICAL HISTORY/PAST SURGICAL HISTORY:: All Active Problems (Updated 05/01/22 @ 18:41 by Luis Dia MD). Discharge planning issues (Acute). Heat exhaustion (Acute). Dehydration (Acute). Bacteremia (Acute). Cellulitis of right leg (Acute). Elbow pain, left (Acute). Chronic worsened, Declines meds,. Tick bite (Acute). Decreased exercise tolerance (Acute). Apnea, transient (Acute). History of COVID-19 (Acute). Oct 2021 (?), mild. Shortness of breath on exertion (Acute). Hypertensive retinopathy of both eyes (Acute 09/26/21). Radiculitis, thoracic (Acute). RAJEEV on CPAP (Chronic). Needs machine eval, > 10 yrs old. Used regularly. Left shoulder pain (Acute). Periodic heart flutter (Acute). Tingling of skin (Acute). Screening for cholesterol level (Acute). Right upper quadrant abdominal pain (Acute). Infected insect bite (Acute). Tubular adenoma of colon (Acute). [facility] GI. Upper back pain (Acute). Burning pain, with radiating pain down both upper arms. Right shoulder pain (Acute). Gastrocnemius strain, left (Acute). GERD (gastroesophageal reflux disease) (Chronic). With Gastritis. Gastritis (Acute). Morbid obesity (Chronic). a. S/P gastric sleeve procedure, January 2013, [facility]. b. 150-pound weight loss in the last 12 months. Diaphragmatic hernia (Acute 07/02/12). 06/18/12 [facility] ON EGD. Migraine (Acute 12/13/11). Swelling of arm (Acute 06/27/17). Unspecified sleep apnea (Acute 12/13/11). BIPAP, repeat sleep study 07/2013 s/p weight loss. Umbilical hernia (Acute 12/13/11). Primary osteoarthritis of left elbow (Acute). 10/29/18 [facility]-Dr Falk .. Calcium deposits per pt report. 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 05/09/19-colonoscopy [facility],Dr Mccall. Medical History . Arm erythema (06/27/17). Body aches. Cellulitis of lower extremity. Hemoptysis. Hiatal hernia. EGD/colonoscopy 05/09/19 [facility]. moderate. High fever. Left lower lobe pneumonia. Surgical History . Bariatric Sleeve, [facility] 01/2013. History of endoscopy. upper. History of placement of ear tubes. Hx of colonoscopy. L elbow and shoulder bone spur repair, Kirsty. Ventral Hernia repair, FA 01/2013. pt denies/states he never had this done. PREVIOUS FUNCTIONAL STATUS/SOCIAL/FAMILY SUPPORTS:: Javad lives in [place] [facility] with his Tia and their 2 children. During the summer months he spends time at his seasonal camp site in [place]. 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 CURRENT FUNCTIONAL STATUS:: Javad was sitting up in his chair when CM met with him. He is alert, oriented and easy to engage in conversation. Dr. Dia joined the conversation and shared with patient that he can likely be sent home with PO ABX when he is medically ready. A doppler is going to be done on his left forarm for a suspected infiltrated IV. CM will continue to follow. ADVANCE DIRECTIVES:: None on file, CM will offer forms. Has patient been provided with info about the portal/API?: Yes Did the patient sign up for the portal?: Yes (Prior to admissions) CODE STATUS:: Full Code INSURANCE COVERAGE / FINANCIAL ISSUES:: [employer] CURRENT HOME/COMMUNITY SERVICES/EQUIPMENT:: None PRIMARY CARE PHYSICIAN:: Meche Rey PATIENT/FAMILY EDUCATION NEEDS:: Review discharge instructions, limitations, medications and plan to follow up with community providers. ask me three. TRANSPORTATION:: via private vehicle with family. PLAN:: Anticipate Javad will discharge home when medically ready. Pt will follow up with community providers and discharge plan of care as prescribed.
[2022-05-02 12:07] VITALS: TEMP 36.3
[2022-05-02] MEDS: Normal Saline Flush 10 ML SYR IVP (14:38)
[2022-05-02 15:25] VITALS: BP 145/92; PULSE 60; RESP 18; TEMP 36.6; O2SAT 97
--- NOTE | 2022-05-02 16:20 | PHA.REVIEW ---
Pharmacy Admission Review - Admission Clinical Review (Last Reviewed 05/01/22 @ 15:28 by AUGUSTA Romo) Discharge planning issues (Acute) Bacteremia (Acute) Cellulitis of right leg (Acute) Swelling of arm (Acute 06/27/17) No Known Allergies Allergy (Verified 05/01/22 10:52) Resuscitation Status Full Code Height 6 ft 1 in Weight 168.1 kg - Renal Dosing Renal Dosing: BUN 19 mg/dL (7-18) H 05/02/22 06:48 Creatinine 1.1 mg/dL (0.70-1.30) 05/02/22 06:48 Medications needing adjustments: N/A (crcl = 99) - Anticoagulation Anticoagulation: Hgb 14.4 g/dL (13.5-17.5) 05/02/22 06:48 Hct 44.3 % (40.0-50.0) 05/02/22 06:48 Plt Count 122 10^3/uL (130-400) L 05/02/22 06:48 Creatinine 1.1 mg/dL (0.70-1.30) 05/02/22 06:48 DVT Prophylaxis: Reviewed (watch platelets (122 today from 141 yesterday)) Medications: Enoxaparin (40 mg BID (adjusted dosing for BMI >40 per protocol)) - Opiate Usage Evaluate Pain Scale/Pains Meds: N/A - Relevant Labs Sodium 136 mmol/L (136-145) 05/02/22 06:48 Potassium 3.8 mmol/L (3.5-5.1) 05/02/22 06:48 Chloride 101 mmol/L (98-107) 05/02/22 06:48 Electrolytes, C-Reactive P, ESR: Reviewed - DM Control DM Control: Glucose 104 mg/dL (74-106) 05/02/22 06:48 Insulin Dosing: N/A - Heart Failure/MT EF%, ERNESTO's, B-Blockers, Diuretics: N/A (on atenolol for non-cardiac indication: migraine prevention) - BP Control BP Control: Blood Pressure 145/92 Blood Pressure 138/78 If elevated: N/A - Qtc Review If Elevated: N/A (QTc = 389) - IV to PO Switch IV Medications: Reviewed - Home Meds Home Med List reviewed: Reviewed - Current meds Current Medication Order Review: Reviewed - Comments Comments/Follow Ups: check platelets, review vanco trough on 05/03 Antibiotic Activity - Pharmacy Antibiotic Review Pharmacy Antibiotic Activity: Reviewed, no change - Antibiotic Information Antibiotic Review Info: group C strep bacteremia, MRSA pending. source: leg (?elbow ?infection vs infiltration vs DVT). Current regimen: ceftriaxone 1 gram daily + vancomycin 2 gram q12h, trough ordered for 05/03 at 1300 (predicted trough ~13.9 per kinetics program)
[2022-05-02] MEDS: Atenolol 50 MG TAB PO (16:50)
[2022-05-02] MEDS: Omeprazole 20 MG CAPCR PO (17:26)
[2022-05-02] MEDS: buPROPion-CR 100 MG TABCR PO (17:26)
--- NOTE | 2022-05-02 18:13 | PGE_ITS ---
Date of Service Date of service: 05/02/22 Time of Service: 18:13 Assessment and Plan Assessment and plan (1) Cellulitis of right leg: Status: Acute Assessment and plan: Single blood culture bottle (aerobic) growing Group C strep On Zosyn. Also on Vancomycin. Blood culture possibly contaminant since growing only in 1 bottle. But has been febrile so cannot r/o bacteremia. Monitor WBC. Ongoing fever; acetaminophen and/or ibuprofen prn. (2) RAJEEV on CPAP: Status: Chronic Assessment and plan: Home CPAP being brought in. (3) Morbid obesity: Status: Chronic Assessment and plan: No specific intervention. (4) Swelling of arm: Status: Acute Assessment and plan: Firm chronic swelling from calcium deposit posteriorly. Soft tissue swelling anteriorly. Question of infiltration of IV placed in ED vs DVT. US ordered. (5) Discharge planning issues: Status: Acute Assessment and plan: Likely home in the next 1-2 days on oral antibiotic. Subjective Subjective Patient reports: no new complaints, tolerating a regular diet and fever; denies diarrhea, nausea or vomiting Interval history since last seen: PATEL better. LUE swelling improved. Exam Narrative Exam Narrative: Sitting in chair. Flushed face. Conversant. Const General: cooperative and no acute distress Nutritional Appearance: obese Orientation: alert and oriented x3 Eyes General: appearance normal, both eyes and all related structures Sclera: sclerae normal Resp Effort & Inspection: normal respiratory effort Auscultation: clear to auscultation bilaterally Cardio Rate: regular rate Rhythm: regular rhythm Heart Sounds: S1 normal and S2 normal GI Palpation: nontender Skin Full body images: 1. Area of cellulitis shows improved. Redness is lessened; now more violaceous in color. Neuro General: no focal motor deficits Cranial Nerves: facial strength normal Cognition: normal cognition Speech: speech normal Extrem General: no pedal edema and no calf tenderness Psych Appearance: grossly normal Mental Status: mental status grossly normal Speech and Movement: speech and movement normal Affect: normal affect Objective Last Vital Signs Temp 36.6 C 05/02/22 15:25 Pulse 60 05/02/22 15:25 Resp 18 05/02/22 15:25 BP 145/92 H 05/02/22 15:25 Pulse Ox 97 05/02/22 15:25 Laboratory Results - last 24 hr 05/01/22 05/02/22 05/02/22 20:07 06:48 06:48 WBC 6.52 RBC 5.00 Hgb 14.4 Hct 44.3 MCV 89 MCH 28.8 MCHC 32.5 RDW 13.3 Plt Count 122 L MPV 11.8 H Immature Gran % 0.5 Neutrophils % 85.6 Lymphocytes % 8.7 Monocytes % 4.9 Eosinophils % 0.0 Basophils % 0.3 Nucleated RBC % 0.0 Absolute Neutrophils 5.58 Absolute Lymphocytes 0.57 L Absolute Monocytes 0.32 Absolute Eosinophils 0.00 Absolute Basophils 0.02 VBG Lactate Sodium 136 Potassium 3.8 Chloride 101 Carbon Dioxide 26.2 Anion Gap 8.8 BUN 19 H Creatinine 1.1 Estimated GFR/1.73 m2 >= 60.00 Glucose 104 Calcium 8.5 Urine Color Yellow Urine Clarity Sl Cloudy Urine pH 5.5 Ur Specific [place] 1.025 Urine Protein Trace H Urine Ketones Trace H Urine Blood Negative Urine Nitrite Negative Urine Bilirubin Negative Urine Urobilinogen 1.0 H Ur Leukocyte Esterase Negative Urine RBC 0-2 Urine WBC 0-2 Ur Epithelial Cells Moderate Urine Crystals Negative Urine Bacteria Few Urine Casts Negative Urine Mucus Trace Ur Culture Indicated? No Urine Glucose Negative 05/02/22 06:48 WBC RBC Hgb Hct MCV MCH MCHC RDW Plt Count MPV Immature Gran % Neutrophils % Lymphocytes % Monocytes % Eosinophils % Basophils % Nucleated RBC % Absolute Neutrophils Absolute Lymphocytes Absolute Monocytes Absolute Eosinophils Absolute Basophils VBG Lactate 1.5 H Sodium Potassium Chloride Carbon Dioxide Anion Gap BUN Creatinine Estimated GFR/1.73 m2 Glucose Calcium Urine Color Urine Clarity Urine pH Ur Specific [place] Urine Protein Urine Ketones Urine Blood Urine Nitrite Urine Bilirubin Urine Urobilinogen Ur Leukocyte Esterase Urine RBC Urine WBC Ur Epithelial Cells Urine Crystals Urine Bacteria Urine Casts Urine Mucus Ur Culture Indicated? Urine Glucose
[2022-05-02 20:16] VITALS: TEMP 37.5
[2022-05-02] MEDS: Enoxaparin 40 MG/0.4 ML SYR SC (20:17)
[2022-05-02 22:44] VITALS: BP 126/74; PULSE 61; RESP 16; TEMP 36.6; O2SAT 96
[2022-05-03] MEDS: VANCOMYCIN/WATER (PEG) 2 GM/400 ML BAG IV (01:38)
[2022-05-03 06:08] VITALS: BP 118/76; PULSE 58; RESP 16; TEMP 36.5; O2SAT 95
[2022-05-03 06:42] LABS: HGB 13.5 g/dL (13.5-17.5); MCH 28.8 pg (27.0-33.0); MCHC 32.1 % (32.0-36.0); MCV 90 fL (80-95); MPV 12.1 fL (8.0-11.0); Platelet Count 121 10^3/uL (130-400); RBC 4.68 10^6/uL (4.36-5.78); RDW 13.3 % (11.8-14.1); RDW-SD 43.9 fL; WBC 3.89 10^3/uL (4.4-10.8)
[2022-05-03] MEDS: Atenolol 50 MG TAB PO (07:35)
[2022-05-03] MEDS: Aspirin E.C. 81 MG TABEC PO (07:35)
[2022-05-03] MEDS: buPROPion-CR 100 MG TABCR PO (07:35)
[2022-05-03] MEDS: Enoxaparin 40 MG/0.4 ML SYR SC (07:35)
[2022-05-03] MEDS: cefTRIAXone 1 GM/50 ML BAG IVPB (07:35)
[2022-05-03] MEDS: Normal Saline Flush 10 ML SYR IVP (07:35)
--- NOTE | 2022-05-03 09:26 | PDOC.CMPRO ---
- If Service Date Differs Date of service: 05/03/22 Time of Service: 09:26 Care Management Progress Note S/O: Javad is being closely monitored and treated with IV ABX. Cultures are pending. Anticipate, Javad will discharge home in the next 1-2 days on oral antibiotics, pending sensitivities. A: 41 year old male admitted to [facility] on 05/02/22 for Cellulites P: Anticipate Jaavd will discharge home when medically ready. ABX course to be determined. Pt will follow up with community providers and discharge plan of care as prescribed.
--- NOTE | 2022-05-03 11:07 | CMDISCH_ITS ---
- If Service Date Differs Date of service: 05/03/22 Time of Service: 11:07 LACE Index Scoring Tool - Questions: Length of Stay (in days): 2 Acuity (Admit via E.D.?): Yes E.D. Visits: 2 - Answers: Total Score: 7 Risk of Readmission: Low Risk Care Management Discharge Reason for Hospitalization: Cellulites Discharge Plan: Javad is discharged home via private vehicle with . RX for Cephalexin is transmitted to [facility] in [facility]. Javad will follow his discharge plan of care as prescribed and follow up with his PCP's office on 05/18/22 as scheduled. Patient/Family Education Needs: Review discharge instructions, limitations, medications and plan to follow up with community providers. ask me three.
--- NOTE | 2022-05-03 12:04 | W.PM.DS.N ---
Date of service: 05/03/22 Time of Service: 12:04 DS: Diagnosis Discharge Diagnosis (1) Cellulitis of right leg: Status: Acute (2) RAJEEV on CPAP: Status: Chronic (3) Morbid obesity: Status: Chronic (4) Swelling of arm: Status: Acute (5) Discharge planning issues: Status: Acute Discharge Plan Disposition Patient Disposition: HOME Condition: Improving Discharge Details Reason For Visit: Cellulitis Admit Date/Time: 05/01/22 15:22 Admit Provider: Luis Dia Attending Provider: Luis Dia Primary Care Provider: Meche Rey Hospital Course Hospital Course: This is a 41 yo male with a PMH cellulitis, morbid obesity,HTN, GERD, RAJEEV, hypertensive retinopathy.? He was initially seen the night before admission in the ED and prescribed doxycycline.? Pt states the pharmacy did not notify him that the script was ready so no dose had been taken by the time he presented again with ongoing fever, myalgias, headache and generalized malaise.? The aerobic blood culture bottle from the previous nights lab growing a gram + cocci in chains. His WBC cell was 13.9 (12 the previous night). Covid neg.? Creatinine 1.2 (baseline of appx 0.9). He was given a 1L bolus of NS in the ED.? rocephin and Vancomycin initaited in the ED. He denies any trauma to the RLE; no ulcerations/abrasions.? No N/V/abd pain.? No urinary symptoms.? No SOA/cough. ? He was placed on IV Vancomycin and Ceftriaxone 2g Q24H. He continued to have a daily fever until the day of d/c when he was fever-free. His WBC count normalized. The erythema of the leg turned more dark and violaceous indicating resolution. 1 bottle of 2 grew Group C streptococcus. Repeat blood cultures negative. He will d/c on cephalexin to complete a 14 day course of antibiotics. PCP f/u in 1-2 weeks. Home Meds and New Rx's Prescriptions: New cephalexin 750 mg capsule 750 mg PO TID Qty: 30 0RF Rx Instructions: Start taking on 05/04/22 Continued omeprazole 20 mg tablet,delayed release (DR/EC) 20 mg PO DAILY cyanocobalamin (vitamin B-12) 1,000 mcg tablet 1,000 mcg PO DAILY ibuprofen 600 mg tablet 600 mg PO TID PRN (Reason: fever or pain) Qty: 90 3RF vitamin B complex 1 EACH tablet 1 ea PO DAILY Rx Instructions: [facility] aspirin 81 MG tablet,delayed release (DR/EC) 81 mg PO DAILY Rx Instructions: [facility] vit d3 1 tab PO DAILY Label Comments: pt unsure if 500IU or 1000 IU atenolol 50 mg tablet 50 mg PO DAILY Qty: 90 3RF Rx Instructions: for migraine prevention bupropion HCl [Wellbutrin SR] 100 mg tablet sustained-release 12 hr 100 mg PO QAM Qty: 90 3RF Rx Instructions: Trial multivitamin 1 EACH capsule 1 ea PO DAILY calcium carbonate [Calcium 500] 500 mg calcium (1,250 mg) Tablet Discontinued doxycycline hyclate 100 mg capsule 100 mg PO BID 7 Days Qty: 14 0RF Discharge Instructions Instructions: Cellulitis (GEN) Additional Instructions: Elevate right leg above heart level when at rest. Stand Alone Forms: Nursing Discharge Form Referrals: Bernard Guzmán DO [OSTEOPATHIC DOCTOR] - 05/18/22 3:30 pm Activity:: Activity as Tolerated Equipment/Supplies:: No Equipment Needed Diet:: Resume usual home diet Discharge Orders Discharge Orders: Discharge Order (Routine); Ordered 05/03/22 Ordered By: Luis Dia DS: Summary Time Spent with Patient providing and/or coordinating discharge services: Greater than 30 minutes Status at Discharge Functional status at discharge: independent ambulation Overall status at discharge: patient is progressing back to baseline Mental Status: mental status grossly normal Speech and Movement: speech and movement normal Mood: congruent mood Affect: normal affect Exam Narrative Exam Narrative: Lying in bed. Flushed face. Conversant. Const General: cooperative and no acute distress Nutritional Appearance: obese Orientation: alert and oriented x3 Eyes General: appearance normal, both eyes and all related structures Sclera: sclerae normal Resp Effort & Inspection: normal respiratory effort Auscultation: clear to auscultation bilaterally Cardio Rate: regular rate Rhythm: regular rhythm Heart Sounds: S1 normal and S2 normal GI Palpation: nontender Skin Full body images: 1. persistent violaceous erythema that has not expanded in area of involvement. NT. Neuro General: no focal motor deficits Cranial Nerves: facial strength normal Cognition: normal cognition Speech: speech normal Extrem General: no pedal edema and no calf tenderness Psych Appearance: grossly normal Mental Status: mental status grossly normal Speech and Movement: speech and movement normal Mood: congruent mood Affect: normal affect DS: Data Vitals/I&O Vitals and I&O: Vital Signs Temperature 36.5 C 05/03/22 06:08 Temperature Source Tympanic 05/03/22 06:08 Pulse 58 L 05/03/22 06:08 Pulse Rhythm Regular 05/03/22 08:17 Respiratory Rate 16 05/03/22 06:08 Respiratory Effort Non-Labored 05/03/22 08:17 Respiratory Depth Normal 05/03/22 08:17 Respiratory Pattern Normal 05/03/22 08:17 Blood Pressure 118/76 05/03/22 06:08 Blood Pressure Position Sitting 05/01/22 10:46 Pulse Oximetry 95 05/03/22 06:08 Oxygen Delivery Method Bi-pap 05/03/22 06:08 Oxygen Flow Rate 0 05/02/22 15:25 Pain Level 0 05/03/22 06:08 Comment 05/02/22 07:19 Intake & Output 05/02/22 05/03/22 05/03/22 23:59 11:59 23:59 Intake Total 640 / 1090 450 / 450 Balance 640 / 1090 450 / 450 Intake: IV 400 / 850 450 / 450 Oral 240 / 240 Other: Comment patient voids independently pt voiding independently in toilet. Stool Size Large Stool Characteristics Soft Formed Voiding Methods Toilet Data Completed and Pending Labs on day of discharge: Labs from last 24 hours 05/03/22 05/03/22 13:00 06:20 WBC 3.89 L RBC 4.68 Hgb 13.5 Hct 42.0 MCV 90 MCH 28.8 MCHC 32.1 RDW 13.3 Plt Count 121 L MPV 12.1 H Vancomycin Trough Pending 05/02/22 19:00 Blood Blood Culture - Pending 05/02/22 18:50 Blood Blood Culture - Pending Preliminary micro results at discharge 05/02/22 19:00 Blood Culture - Pending Blood 05/02/22 18:50 Blood Culture - Pending Blood 05/01/22 15:10 Blood Culture - Preliminary Blood NO GROWTH 24 HOURS 05/01/22 14:20 Blood Culture - Preliminary Blood NO GROWTH 24 HOURS PFSH All Active Problems Discharge planning issues (Acute) Heat exhaustion (Acute) Dehydration (Acute) Bacteremia (Acute) Cellulitis of right leg (Acute) Elbow pain, left (Acute) Chronic worsened, Declines meds, Tick bite (Acute) Decreased exercise tolerance (Acute) Apnea, transient (Acute) History of COVID-19 (Acute) Oct 2021 (?), mild. Shortness of breath on exertion (Acute) Hypertensive retinopathy of both eyes (Acute 09/26/21) Radiculitis, thoracic (Acute) RAJEEV on CPAP (Chronic) Needs machine eval, > 10 yrs old. Used regularly. Left shoulder pain (Acute) Periodic heart flutter (Acute) Tingling of skin (Acute) Screening for cholesterol level (Acute) Right upper quadrant abdominal pain (Acute) Infected insect bite (Acute) Tubular adenoma of colon (Acute) [facility] GI Upper back pain (Acute) Burning pain, with radiating pain down both upper arms. Right shoulder pain (Acute) Gastrocnemius strain, left (Acute) GERD (gastroesophageal reflux disease) (Chronic) With Gastritis Gastritis (Acute) Morbid obesity (Chronic) a. S/P gastric sleeve procedure, January 2013, [facility]. b. 150-pound weight loss in the last 12 months. Diaphragmatic hernia (Acute 07/02/12) 06/18/12 [facility] ON EGD Migraine (Acute 12/13/11) Swelling of arm (Acute 06/27/17) Unspecified sleep apnea (Acute 12/13/11) BIPAP, repeat sleep study 07/2013 s/p weight loss Umbilical hernia (Acute 12/13/11) Primary osteoarthritis of left elbow (Acute) 10/29/18 [facility]-Dr Falk .. 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 Family History Father Hypertensive disorder, systemic arterial Obesity History of dissecting abdominal aortic aneurysm (AAA) repair Paternal Grandfather Prostate cancer Maternal Grandfather Diabetes Hypertension Paternal Grandmother Breast cancer Lung cancer Mother Hypertension Social History Smoking/Tobacco Use Status: Former Tobacco Use Quit Date: 10/08/03 Tobacco: How many years used: 6 Second Hand Exposure: No Smoking risk assessment performed?: Yes Alcohol Intake: current Alcohol Intake frequency: a few times a week Alcohol type: beer Drug use: Never Substance use type: does not use Adopted: No Caregiver/Support person: No Foster care: No Household members: spouse and children Housing: house Number of Children: 2 Communication Needs: Corrective Lenses Education Level: high school Do you need help understanding health information?: Often 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 Pets and animals: Yes Pets and animals: dog(s) Sexually active: Yes Do you think of yourself as: straight/heterosexual Current gender identity: male What is your relationship status?: How often do you talk on the phone with friends or family?: three or more times per week How often do you get together with friends or relatives?: three or more times per week How often do you attend uatsdin or cheondoism services?: 1-3 times per year Panel score (0-1 are the most socially isolated patients): 2 What type of physical activity do you participate in: other Details: climbing in and out of truck/up and down ladder w/work-[employer] Duration: 15-30 minutes/day Frequency: 5-6 times per week Special gabriel needs: No Seatbelt use: sometimes Helmet use: Yes (sometimes) Helmet use: sometimes Drive intox or ride w/intox sales route driver: No Water heater temp set <120 deg: Yes Working smoke detector in home: Yes Fire extinguisher in home: Yes Carbon monox detector in home: Yes Do you feel safe at home: Yes Do you feel safe in your relationship?: Yes
== END 2022-05-03 13:31 | disposition home or self-care (01) | DRG 603 ==
LOC: ER 15:35 → MS 17:19
PROVIDERS: Admitting Provider Family Medicine; Emergency Provider Physician Assistant; PCP Nurse Practitioner; Visit Provider Family Medicine
DX: L03.115 Cellulitis of right lower limb (principal); Z68.42 Body mass index [BMI] 45.0-49.9, adult; R78.81 Bacteremia; G47.33 Obstructive sleep apnea (adult) (pediatric); E66.01 Morbid (severe) obesity due to excess calories; I10 Essential (primary) hypertension; K21.9 Gastro-esophageal reflux disease without esophagitis; H35.039 Hypertensive retinopathy, unspecified eye; M79.89 Other specified soft tissue disorders; E86.0 Dehydration; Z86.16 Personal history of COVID-19; K29.70 Gastritis, unspecified, without bleeding; Z98.84 Bariatric surgery status; G43.909 Migraine, unspecified, not intractable, without status migrainosus; Z87.891 Personal history of nicotine dependence
CPT/HCPCS: 36410; 36415; 80048; 80053; 84145; 85027; 87040; 87081; 87637; 96361; 96365; 96366; 96367; 99285; J1650; 71045; 80202; 81003; 81015; 83605; 85025; 93306; 93971; 99222; 99239; J0131; J0696

== ENCOUNTER → 2022-05-08 18:40 | Outpatient (CLI) | payer BC, SELFPAY ==
--- NOTE | 2022-05-08 15:31 | DI.RAD_ITS ---
Exam(s) XR ANKLE RT COMPLETE EXAM: XR ANKLE RT COMPLETE CLINICAL HISTORY: PAIN IN RT ANKLE JOINTS-M25.571, CELLULITIS-L03.90 TECHNIQUE: COMPARISON: No exams were available for comparison FINDINGS: Four views were obtained. The ankle mortise is well maintained. No evidence of fracture. No erosiv e or destructive lesion of the bones. IMPRESSION: RADIATION DOSE DELIVERED: Total DLP
== END ==
PROVIDERS: PCP Nurse Practitioner; Visit Provider Nurse Practitioner
DX: L03.90 Cellulitis, unspecified (principal); M25.571 Pain in right ankle and joints of right foot
CPT/HCPCS: 73610

== ENCOUNTER 2022-05-12 09:46 | Outpatient (CLI) | payer BC, SELFPAY ==
--- NOTE | 2022-05-12 09:45 | DI.US_ITS ---
Exam(s) US LOWER EXTREMITY VENOUS RT EXAM: US LOWER EXTREMITY VENOUS RT CLINICAL HISTORY: Cellulitis, acute ankle pain/decreased ROM, swelling, L03.115, M25.571 TECHNIQUE: Right lower extremity venous ultrasound performed using grayscale, color-flow, and spectr al Doppler analysis. COMPARISON: US US LOWER EXTREMITY VENOUS RT from 05/02/2022 FINDINGS: The right common femoral, femoral and popliteal veins demonstrate normal compressibility, augmentatio n, and color Doppler. The posterior tibial veins are patent. The saphenofemoral junction is unremark able. There is no evidence of a Landis cyst. The soft tissues are unremarkable. IMPRESSION: No evidence of a right lower extremity DVT. DATA REPOSITORY:
[2022-05-12 10:00] LABS: Abs Immature Grans 0.03 10^3/uL (0.0-0.06); Absolute Basophil Count 0.03 10^3/uL (0.0-0.2); Absolute Eosinophil Count 0.19 10^3/uL (0.0-0.7); Absolute Neutrophil Count 5.09 10^3/uL (1.2-6.7); Basophils % 0.4; Eosinophils % 2.4; HCT 52.7 % (40.0-50.0); HGB 16.8 g/dL (13.5-17.5); Immature Grans % 0.4; Lymphocytes % 27.4; MCH 28.3 pg (27.0-33.0); MCHC 31.9 % (32.0-36.0); MCV 89 fL (80-95); MPV 11.1 fL (8.0-11.0); Monocytes % 6.2; Neutrophils % 63.2; Platelet Count 258 10^3/uL (130-400); RBC 5.94 10^6/uL (4.36-5.78); RDW 12.4 % (11.8-14.1); RDW-SD 40.7 fL; WBC 8.04 10^3/uL (4.4-10.8)
[2022-05-12 10:11] LABS: Uric Acid 5.1 mg/dL (3.5-7.2)
== END 2022-05-12 09:47 | disposition home or self-care (01) ==
LOC: LBO 09:47
PROVIDERS: PCP Nurse Practitioner; Visit Provider Nurse Practitioner Adult Health
DX: L03.115 Cellulitis of right lower limb (principal); M25.571 Pain in right ankle and joints of right foot; M25.671 Stiffness of right ankle, not elsewhere classified; M79.89 Other specified soft tissue disorders
CPT/HCPCS: 36415; 84550; 85025; 93971

== ENCOUNTER 2022-05-13 16:28 | Emergency (ER) | payer BC, SELFPAY ==
[2022-05-13 16:31] VITALS: BP 123/75; PULSE 68; RESP 16; TEMP 36.2; O2SAT 99
--- NOTE | 2022-05-13 16:45 | W.ED.GENAD ---
Discharge Plan Disposition Patient Disposition: HOME Discharge Details Clinical Impression: Dependent edema Primary Care Provider: Meche Rey ED Provider: Domenico Dawkins Home Meds and New Rx's Prescriptions: No Action omeprazole 20 mg tablet,delayed release (DR/EC) 20 mg PO DAILY sulfamethoxazole-trimethoprim [Bactrim DS] 800-160 mg tablet 1 tab PO Q12H Qty: 2 0RF cyanocobalamin (vitamin B-12) 1,000 mcg tablet 1,000 mcg PO DAILY ibuprofen 600 mg tablet 600 mg PO TID PRN (Reason: fever or pain) Qty: 90 3RF sulfamethoxazole-trimethoprim [Bactrim DS] 800-160 mg tablet 1 tab PO Q12H Qty: 14 0RF vitamin B complex 1 EACH tablet 1 ea PO DAILY Rx Instructions: [facility] aspirin 81 MG tablet,delayed release (DR/EC) 81 mg PO DAILY Rx Instructions: [facility] vit d3 1 tab PO DAILY Label Comments: pt unsure if 500IU or 1000 IU atenolol 50 mg tablet 50 mg PO DAILY Qty: 90 3RF Rx Instructions: for migraine prevention bupropion HCl [Wellbutrin SR] 100 mg tablet sustained-release 12 hr 100 mg PO QAM Qty: 90 3RF Rx Instructions: Trial multivitamin 1 EACH capsule 1 ea PO DAILY calcium carbonate [Calcium 500] 500 mg calcium (1,250 mg) Tablet cephalexin 750 mg capsule 750 mg PO TID Qty: 30 0RF Hold Instructions: Home Medication placed on hold at Doctor's office Rx Instructions: Start taking on 05/04/22 Discharge Instructions Additional Instructions: Please continue taking all your medications. Is important that you elevate the leg as much as possible in the ED use compressive stockings/socks before you get up. Discharge Data Discharge Date/Time-TO BE ENTERED AT DEPARTURE: 05/13/22 17:16 Medical Decision Making The patient's clinical presentation is consistent with peripheral vascular disease as well as dependent edema worse on the right leg on the left. I am not concerned that he has a DVT nor does he need an ultrasound at this time. The patient is adamant a few hours of elevation of the right leg decreases the swelling significantly. I have asked him to get some compressive socks and explained to him that he needs to use them before he gets up in the morning. HPI General Date/Time Provider Initiated Documentation: 05/13/22 16:32. HPI Narrative: 21-year-old presents to the emergency department for evaluation of right leg swelling. He states he was diagnosed with cellulitis 2 weeks ago. He was then admitted for IV antibiotics x3 days and then sent home on Bactrim. For the past 10 days he has noticed intermittent swelling of the right lower extremity. The swelling is less when he elevates the leg. The swelling is worse when he gets up in the morning puts his foot down. He feels tension in the right foot. He has been walking with crutches. He has seen his PCP approximately 3 times an outpatient and told to return to the emergency room the swelling did not get any better. He had no fevers no chills. He been compliant with his antibiotics. He has no calf pain. No other leg pain. He is not short of breath. Related Data Home Medications Medication Instructions Recorded Confirmed multivitamin 1 ea PO DAILY 01/19/13 05/12/22 aspirin 81 mg tablet,delayed 81 mg PO DAILY 04/29/13 05/12/22 release vitamin B complex 1 ea PO DAILY 04/29/13 05/12/22 Vit D3 1 tab PO DAILY 04/19/15 05/12/22 calcium carbonate 500 mg calcium 07/01/19 05/12/22 (1,250 mg) tablet (Calcium 500) cyanocobalamin (vitamin B-12) 1,000 mcg PO DAILY 01/25/21 05/12/22 1,000 mcg tablet omeprazole 20 mg tablet,delayed 20 mg PO DAILY 01/25/21 05/12/22 release atenolol 50 mg tablet 50 mg PO DAILY #90 tab-caps 08/09/21 05/12/22 bupropion HCl 100 mg tablet,12 hr 100 mg PO QAM #90 tabs 08/09/21 05/12/22 sustained-release (Wellbutrin SR) ibuprofen 600 mg tablet 600 mg PO TID PRN fever or pain 03/16/22 05/12/22 #90 tabs cephalexin 750 mg capsule 750 mg PO TID #30 caps 05/03/22 05/12/22 sulfamethoxazole 800 1 tab PO Q12H #14 tabs 05/10/22 05/12/22 mg-trimethoprim 160 mg tablet (Bactrim DS) sulfamethoxazole 800 1 tab PO Q12H #2 tabs 05/13/22 05/13/22 mg-trimethoprim 160 mg tablet (Bactrim DS) Previous Rx's Medication Instructions Recorded atenolol 50 mg tablet 50 mg PO DAILY #90 tab-caps 08/09/21 bupropion HCl 100 mg tablet,12 hr 100 mg PO QAM #90 tabs 08/09/21 sustained-release (Wellbutrin SR) ibuprofen 600 mg tablet 600 mg PO TID PRN fever or pain 03/16/22 #90 tabs cephalexin 750 mg capsule 750 mg PO TID #30 caps 05/03/22 sulfamethoxazole 800 1 tab PO Q12H #14 tabs 05/10/22 mg-trimethoprim 160 mg tablet (Bactrim DS) sulfamethoxazole 800 1 tab PO Q12H #2 tabs 05/13/22 mg-trimethoprim 160 mg tablet (Bactrim DS) Allergies Allergy/AdvReac Type Severity Reaction Status Date / Time No Known Allergies Allergy Verified 05/12/22 09:06 General Stated Complaint: Cellulitis GLORIA: 3 Review of Systems Narrative: Constitutional negative for fevers and chills. Negative for malaise and fatigue. Cardiovascular no palpitations Respiratory no shortness of breath no cough. GI no nausea no vomiting normal urine output MSK no myalgias no arthralgias Skin chronic changes to the lower legs. No change in past 2 weeks Neuro no paresthesias no focal weakness Endo no Weight gain or weight loss. Hematological not on blood thinners PFSH All Active Problems (Updated 05/13/22 @ 16:51 by Domenico Dawkins MD) Dependent edema (Acute) Heat exhaustion (Acute) Dehydration (Acute) Cellulitis of right leg (Acute) Elbow pain, left (Acute) Chronic worsened, Declines meds, Tick bite (Acute) Decreased exercise tolerance (Acute) Apnea, transient (Acute) History of COVID-19 (Acute) Oct 2021 (?), mild. Shortness of breath on exertion (Acute) Hypertensive retinopathy of both eyes (Acute 09/26/21) Radiculitis, thoracic (Acute) RAJEEV on CPAP (Chronic) Needs machine eval, > 10 yrs old. Used regularly. Left shoulder pain (Acute) Periodic heart flutter (Acute) 05/02/22 Echocardiogram - no evidence of valvular disease Tingling of skin (Acute) Screening for cholesterol level (Acute) Right upper quadrant abdominal pain (Acute) Infected insect bite (Acute) Tubular adenoma of colon (Acute) [facility] GI Upper back pain (Acute) Burning pain, with radiating pain down both upper arms. Right shoulder pain (Acute) Gastrocnemius strain, left (Acute) GERD (gastroesophageal reflux disease) (Chronic) With Gastritis Gastritis (Acute) Morbid obesity (Chronic) a. S/P gastric sleeve procedure, January 2013, [facility]. b. 150-pound weight loss in the last 12 months. Diaphragmatic hernia (Acute 07/02/12) 06/18/12 [facility] ON EGD Migraine (Acute 12/13/11) Unspecified sleep apnea (Acute 12/13/11) BIPAP, repeat sleep study 07/2013 s/p weight loss Umbilical hernia (Acute 12/13/11) Primary osteoarthritis of left elbow (Acute) 10/29/18 [facility]-Dr Falk .. 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) 05/09/19-colonoscopy [facility],Dr Mccall Medical History (Updated 05/13/22 @ 16:51 by Domenico Dawkins MD) Arm erythema (06/27/17) Body aches Cellulitis of lower extremity Hemoptysis Hiatal hernia EGD/colonoscopy 05/09/19 [facility] moderate High fever Left lower lobe pneumonia Surgical History Bariatric Sleeve, [facility] 01/2013 History of endoscopy upper History of placement of ear tubes Hx of colonoscopy L elbow and shoulder bone spur repair, Kirsty Ventral Hernia repair, [facility] 01/2013 pt denies/states he never had this done. Family History Father Hypertensive disorder, systemic arterial Obesity History of dissecting abdominal aortic aneurysm (AAA) repair Paternal Grandfather Prostate cancer Maternal Grandfather Diabetes Hypertension Paternal Grandmother Breast cancer Lung cancer Mother Hypertension Social History Smoking/Tobacco Use Status: Former Tobacco Use Quit Date: 10/08/03 Tobacco: How many years used: 6 Second Hand Exposure: No Smoking risk assessment performed?: Yes Alcohol Intake: current Alcohol Intake frequency: a few times a week Alcohol type: beer Drug use: Never Substance use type: does not use Adopted: No Caregiver/Support person: No Foster care: No Household members: spouse and children Housing: house Number of Children: 2 Communication Needs: Corrective Lenses Education Level: high school Do you need help understanding health information?: Often 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 Pets and animals: Yes Pets and animals: dog(s) Sexually active: Yes Do you think of yourself as: straight/heterosexual Current gender identity: male What is your relationship status?: How often do you talk on the phone with friends or family?: three or more times per week How often do you get together with friends or relatives?: three or more times per week How often do you attend restoration or druze services?: 1-3 times per year Panel score (0-1 are the most socially isolated patients): 2 What type of physical activity do you participate in: other Details: climbing in and out of truck/up and down ladder w/work-[employer] Duration: 15-30 minutes/day Frequency: 5-6 times per week Special gabriel needs: No Seatbelt use: sometimes Helmet use: Yes (sometimes) Helmet use: sometimes Drive intox or ride w/intox local truck driver: No Water heater temp set <120 deg: Yes Working smoke detector in home: Yes Fire extinguisher in home: Yes Carbon monox detector in home: Yes Do you feel safe at home: Yes Do you feel safe in your relationship?: Yes Exam Narrative Exam Narrative: Awake alert oriented x3, no acute distress. Cooperative and pleasant. High BMI PERRLA EOMI MMM Respiratory normal work of breathing Cardiovascular normal skin color normal cap refill Neuro grossly intact Psych normal mood and affect Right lower extremity does have some peripheral edema involving the foot and the ankle. Calf is normal. There is some chronic changes of poor circulation of the right ankle. The skin is warm but not hot. Not tender. Course Vital Signs Vital signs: Vital Signs Temperature 36.2 C L 05/13/22 16:31 Pulse 68 05/13/22 16:31 Respiratory Rate 16 05/13/22 16:31 Blood Pressure 123/75 05/13/22 16:31 Pulse Oximetry 99 05/13/22 16:31 Temperature 36.2 C L 05/13/22 16:31 Temperature Source Temporal Artery Scan 05/13/22 16:31 Pulse 68 05/13/22 16:31 Respiratory Rate 16 05/13/22 16:31 Blood Pressure 123/75 05/13/22 16:31 Blood Pressure Position Sitting 05/13/22 16:31 Pulse Oximetry 99 05/13/22 16:31 Oxygen Delivery Method Room Air 05/13/22 16:31 Oxygen Flow Rate 0 05/13/22 16:31 Pain Level 3 05/13/22 16:31
== END 2022-05-13 17:16 | disposition home or self-care (01) ==
PROVIDERS: Emergency Provider Emergency Medicine; PCP Nurse Practitioner
DX: R60.0 Localized edema (principal); R09.89 Other specified symptoms and signs involving the circulatory and respiratory systems; Z87.891 Personal history of nicotine dependence
CPT/HCPCS: 99281; 99282

== ENCOUNTER 2022-08-02 10:07 | Outpatient (REF) | payer BC, SELFPAY ==
--- NOTE | 2022-08-02 10:00 | SKI_PTH ---
PATIENT: Javad Chicas LOC: [facility] U#:[id number] AGE/SX: 42/M ROOM: RE08/02/[address]: Lj Edward MD : 1980 BED: DIS: 08/02/2022 SPEC #: [id number] RECD: 08/02/22 13:09 STATUS: AMARI REFrancesca #: [id number] ANDREIA: 08/02/22 10:[address]: Lj Edward DEPT: Surgical Specimen RECD BY: Clarice Díaz ENTERED: 08/02/22 13:10 SP TYPE: MATEO MORALES DR: Meche Rey APRN Tissues: 1 - SKIN BIOPSY(SHAVE/PUNCH) Procedures: SKIN LEVEL 4 Comments: [id number]
== END 2022-08-02 10:08 | disposition home or self-care (01) ==
LOC: LBN 10:07
PROVIDERS: PCP Nurse Practitioner; Visit Provider Surgery
DX: B07.9 Viral wart, unspecified (principal)
CPT/HCPCS: 88305

== ENCOUNTER 2022-09-12 10:59 | Day surgery (SDC) | payer BC, SELFPAY ==
[2022-09-12 11:09] VITALS: BP 132/87; PULSE 55; RESP 18; TEMP 37.1; O2SAT 98
[2022-09-12] MEDS: Lactated Ringers 1,000 ML 80 ML IV (11:28)
--- NOTE | 2022-09-12 12:16 | W.ANESPRE ---
General Info Date of Service Date Performed: 09/12/22 Height: 6 ft 1 in Weight: 169.19 kg Body Mass Index (BMI): 49.1 Surgical Procedure: Operation Date: 09/12/22 13:25 Proposed Procedure Side Surgeon p Wrist ECTR Right Alan Golden MD Meds Allergies and Home Medications Allergies Allergy/AdvReac Type Severity Reaction Status Date / Time No Known Allergies Allergy Verified 09/11/22 08:04 Home Medication Medication Instructions Recorded multivitamin 1 ea PO DAILY 01/19/13 aspirin 81 mg tablet,delayed 81 mg PO DAILY 04/29/13 release vitamin B complex 1 ea PO DAILY 04/29/13 Vit D3 1 tab PO DAILY 04/19/15 calcium carbonate 500 mg calcium 1,250 mg PO DAILY 07/01/19 (1,250 mg) tablet (Calcium 500) cyanocobalamin (vitamin B-12) 1,000 mcg PO DAILY 01/25/21 1,000 mcg tablet omeprazole 20 mg tablet,delayed 20 mg PO DAILY 01/25/21 release ibuprofen 600 mg tablet 600 mg PO TID PRN fever or pain 03/16/22 #90 tabs semaglutide (weight loss) 0.25 0.25 mg (0.5 mL) subcut QWEEK #2 mL 05/30/22 mg/0.5 mL subcutaneous pen injector (Wegovy) atenolol 50 mg tablet 50 mg PO DAILY #90 tab-caps 07/05/22 bupropion HCl 100 mg tablet,12 hr 100 mg PO QAM #90 tabs 07/05/22 sustained-release (Wellbutrin SR) Current Visit Medications: Current Medications Generic Name Dose Route Start Last Admin Trade Name Freq PRN Reason Stop Dose Admin Ringer's Solution 1,000 mls @ 80 mls/hr 09/12/22 06:00 09/12/22 11:28 IV 10/11/22 23:59 80 mls/hr INFUSION BENIGNO Administration Cefazolin Sodium 3,000 mg/ 100 mls @ 200 mls/hr 09/12/22 06:00 Sodium Chloride IVPB 09/12/22 16:00 PREOP BENIGNO IV Miscellaneous Supplies 1 each 09/12/22 06:00 Iv Access IV 10/11/22 23:59 DIRECTED BENIGNO Sodium Chloride 0 ml 09/12/22 06:00 Normal Saline Flush 10 Ml Syr IV 10/11/22 23:59 PRN PRN Sodium Chloride 0 ml 09/12/22 06:00 Normal Saline 10 Ml Vial IJ 10/11/22 23:59 DIRECTED PRN Sterile Water 0 ml 09/12/22 06:00 Water,Injection,Sterile 10 Ml Vial IJ 10/11/22 23:59 DIRECTED PRN PFSH Active Problems Active Problems: Problem Status Onset Code Morbid obesity E66.01 Diaphragmatic hernia 07/02/12 K44.9 Migraine 12/13/11 G43.909 Unspecified sleep apnea 12/13/11 G47.30 Umbilical hernia 12/13/11 K42.9 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 Benign adenomatous polyp of large intestine 05/09/19 D12.6 Digital mucous cyst of finger of right hand M67.441 Gastritis K29.70 GERD (gastroesophageal reflux disease) K21.9 Gastrocnemius strain, left S86.112A Right shoulder pain M25.511 Upper back pain M54.9 Tubular adenoma of colon D12.6 Infected insect bite W57.XXXA Right upper quadrant abdominal pain R10.11 Screening for cholesterol level Z13.220 Tingling of skin R20.2 Periodic heart flutter I49.8 Left shoulder pain M25.512 RAJEEV on CPAP G47.33, Z99.89 Radiculitis, thoracic M54.14 Hypertensive retinopathy of both eyes 09/26/21 H35.033 Shortness of breath on exertion R06.02 History of COVID-19 Z86.16 Apnea, transient R06.81 Decreased exercise tolerance R68.89 Tick bite W57.XXXA Elbow pain, left M25.522 Cellulitis of right leg L03.115 Lymphedema of right lower extremity I89.0 Ulnar neuropathy at elbow of left upper extremity G56.22 Bilateral carpal tunnel syndrome G56.03 Medical History Medical History Arm erythema (06/27/17) Body aches Cellulitis of lower extremity Hemoptysis Hiatal hernia EGD/colonoscopy 05/09/19 [facility] moderate High fever Left lower lobe pneumonia Wart left hand removed in office Dr Edward 07/29 Surgical History Surgical History Bariatric Sleeve, [facility] 01/2013 History of endoscopy upper History of placement of ear tubes Hx of colonoscopy L elbow and shoulder bone spur repair, Kirsty Ventral Hernia repair, [facility] 01/2013 pt denies/states he never had this done. Tobacco Smoking/Tobacco Use Status: Former Tobacco Use Passive smoking exposure: No Second hand exposure: No Alcohol Alcohol Intake: current Alcohol intake frequency: a few times a week Alcohol type: beer Substance Use Substance use: Never Substance use type: does not use Vital Signs and Lab Results Vital Signs Most Recent Vital Signs in EMR: Most Recent Vital Signs Temp Pulse Resp BP Pulse Ox 37.1 C 55 L 18 132/87 98 09/12/22 11:09 09/12/22 11:09 09/12/22 11:09 09/12/22 11:09 09/12/22 11:09 Lab Results Blood Type / Crossmatch: No Data to Display Complete Blood Count: No Data to Display Complete Metabolic Panel: No Data to Display Liver Function Panel: No Data to Display Coagulation Panel: No Data to Display Cardiac Panel: No Data to Display Arterial Blood Gas: No Data to Display Venous Blood Gas: No Data to Display Pancreas Panel: No Data to Display Thyroid Panel: No Data to Display Infectious Disease: No Data to Display Blood Cultures: No Data to Display Toxicology Panel: No Data to Display Imaging and Studies Imaging and Studies Study information below may be from another EMR and interpreted by another provider. Please see original notes in EMR for more complete details. EKG Summary: DATE/TIME OF SERVICE: 04/30/22 1616 : 1980PERFORMING LOCATION: ER APPROVED REPORT Exam: Resting ECG Reason for Exam: near syncope Patient Location: E HR:95 bpm ECG Measurements Heart Rate 95 AXIS OH 149 P 34 QRSd 105 QRS 28 QT 309 T225 QTc 389 Conclusion Sinus rhythm...normal P axis, V-rate 60- 99 Stress Test Summary: 02/21/22: Stress ECG Conclusion 1. The resting electrocardiogram showed left ventricular hypertrophy with repolarization abnormalities 2. Patient exercised on the Ken protocol and completed a workload of 10.16 METS, stopping due to leg fatigue 3. Mildly hypertensive blood pressure response to exercise. Normal heart rate response to exercise. The patient achieved 87% of predicted heart rate for age 4. At peak exercise there was an additional [address] depression in the inferior and anterolateral leads 5. The electrocardiographic portion of the test was nondiagnostic due to resting ST-T abnormalities 6. There were no significant dysrhythmias 7. Suggest repeat with imaging if clinically indicated Acosta Treadmill Score is 9 which is Low risk. Echocardiogram Summary: [place] [facility] [place] 65%, Normal valves. Anesthesia Assessment and Plan Anesthesia History Personal History: No History of Anesthesia Complications Family History: No Family History of Anesthesia Complications Exercise Tolerance Exercise Tolerance: Metabolic Equivalents>4 Pertinent Negatives Pertinent Negatives: No Symptoms of GERD Cardiac & Pulmonary Exam Cardiac Exam: Normal S1/S2 Heart Sounds Pulmonary Exam: Clear Bilateral Breath Sounds Implantable Cardiac Device Does patient have a Pacemaker or an ICD?: No Airway Exam Known Difficult Airway: No Mallampati Class: 2 Mouth Opening: Normal (> 3cm) Thyromental Distance: Greater than 3 cm Facial Hair: Full Morrell Neck Range of Motion: Full ROM Neck Circumference: Normal Teeth Condition: Normal Dentition ASA Classification ASA Score: ASA 2 Emergency Case?: No NPO Status NPO Status: NPO Clears >2 hours, Solids >8 hours Anesthesia Plan Resuscitation Status: Full Code Anesthesia Technique: General Anesthesia Airway Planned: Natural Airway Monitors Used: Standard Monitors
[2022-09-12 12:28] VITALS: BMI 49.1
--- NOTE | 2022-09-12 13:36 | PDOC.DSDIS_ITS ---
Date of service: 09/12/22 Time of Service: 13:36 Discharge Plan Disposition Patient Disposition: HOME Condition: Good Discharge Details Reason For Visit: R ECTR Attending Provider: Alan Golden Primary Care Provider: Meche Rey Home Meds and New Rx's Prescriptions: New acetaminophen 500 mg tablet 1,000 mg PO TID Qty: 90 0RF hydrocodone-acetaminophen 5-325 mg tablet 1 tab PO Q6H PRN (Reason: pain) Qty: 4 0RF ibuprofen 600 mg tablet 600 mg PO TID PRN (Reason: pain) Qty: 90 0RF Continued omeprazole 20 mg tablet,delayed release (DR/EC) 20 mg PO DAILY Wegovy 0.25 mg/0.5 mL pen injector 0.25 mg subcut QWEEK Qty: 2 0RF Label Comments: Pt hasnt started 09/11/22 Rx Instructions: administer weeks 1 through 4 of therapy bupropion HCl [Wellbutrin SR] 100 mg tablet sustained-release 12 hr 100 mg PO QAM Qty: 90 3RF Rx Instructions: Trial atenolol 50 mg tablet 50 mg PO DAILY Qty: 90 3RF Rx Instructions: for migraine prevention cyanocobalamin (vitamin B-12) 1,000 mcg tablet 1,000 mcg PO DAILY vitamin B complex 1 EACH tablet 1 ea PO DAILY Rx Instructions: [facility] aspirin 81 MG tablet,delayed release (DR/EC) 81 mg PO DAILY Rx Instructions: [facility] vit d3 1 tab PO DAILY Label Comments: pt unsure if 500IU or 1000 IU multivitamin 1 EACH capsule 1 ea PO DAILY calcium carbonate [Calcium 500] 500 mg calcium (1,250 mg) Tablet 1,250 mg PO DAILY Discontinued ibuprofen 600 mg tablet 600 mg PO TID PRN (Reason: fever or pain) Qty: 90 3RF Discharge Instructions Stand Alone Forms: [place] Tunnel Release Referrals: Alan Golden MD [ [facility] STAFF PHYSICIAN] - Activity:: Activity as Tolerated Remove Dressings/Wound Care:: 48 hours Shower/Bathe:: 48 hours Diet:: As Tolerated
[2022-09-12] MEDS: ceFAZolin 3,000 MG in Normal Saline 100 ML 200 MG IVPB (13:42)
[2022-09-12] MEDS: Lidocaine 1% Pres-Free W/EPI 1/200,000 10 ML VIAL (13:54)
[2022-09-12 14:05] VITALS: BP 130/90; PULSE 61; RESP 18; TEMP 36.4; O2SAT 96
[2022-09-12 14:34] VITALS: BP 126/75; PULSE 65; RESP 18; TEMP 36.5; O2SAT 95
--- NOTE | 2022-09-12 14:58 | W.ANESPOSTOP ---
Postoperative Evaluation Date, Time and Location Date Performed: 09/12/22 Time Performed: 14:59 Patient Location: Day Surgery Unit Vital Signs Most Recent Imported Vital Signs: Most Recent Vital Signs Temp Pulse Resp BP Pulse Ox 36.5 C 65 18 126/75 95 09/12/22 14:34 09/12/22 14:34 09/12/22 14:34 09/12/22 14:34 09/12/22 14:34 Pain Score Most Recent Pain Score: Most Recent Pain Score Pain Level 0 09/12/22 11:09 Assessment Mental Status: Awake (Alert & Oriented to Patient Baseline) Airway and Respiratory Function: Patent airway with normal (patient baseline) respiratory exam Cardiovascular Function: Hemodynamically Stable Hydration Status: Adequately Hydrated Nausea & Vomiting: No Nausea or Vomiting Pain: Pt. Denies Any Pain Peripheral Nerve Block: Patient did not receive a nerve block
--- NOTE | 2022-09-12 18:26 | ROE_ITS ---
Date of service: 09/12/22 Time of Service: 14:30 Operative Note Operative Note PRE-OP DIAGNOSIS: Right Carpal Tunnel Syndrome POST-OP DIAGNOSIS: same PROCEDURE: Right Endoscopic Carpal Tunnel Release SURGEON: Alan Golden ANESTHESIA TYPE: General:No Airway Refer to Anesthesia Record ESTIMATED BLOOD LOSS: 0 PATHOLOGY: none sent TOURNIQUET TIME: 6 COMPLICATIONS: None Patient was transported to: same day Patient's condition: stable Indications: I have seen Javad in clinic for symptoms of carpal tunnel syndrome. The numbness, tingling, and pain limited function. Clinical exam findings with nerve conduction tests confirmed the diagnosis of carpal tunnel syndrome. Nonoperative measures such as bracing, time, activity modifications had been tried but disability and pain persisted. I discussed carpal tunnel release with the patient. I reviewed the risks of the procedure to include, but not limited to, bleeding, infection, pain, stiffness, incomplete release, damage to nerves or vessels, persistent numbness, recurrence. Despite these risks, the patient elected to proceed. Findings: There was tightened carpal tunnel. This was dilated and released successfully with the endoscopic with increased space within the tunnel. The antebrachial fascia was released proximally freeing the median nerve at the wrist. Procedure Description: Javad was greeted in the preoperative holding area where the correct side was identified and marked. The consent was reviewed with the patient and signed. The history and physical was updated. All questions were answered. He was taken back to the operating room. The patient was placed into the supine position on the operating room table with the right arm on an arm board. A nonsterile tourniquet was placed high onto the arm. All bony prominences were well padded. Prophylactic antibiotics in the form of Cefazolin were administered. The right arm was then prepped with Chloraprep and draped in a standard fashion with stockinette and extremity drape. A timeout to confirm correct identity, side and site, procedure, allergies, anesthesia, and medical concerns was performed. The surgical site was marked in the volar wrist creases in line with the radial border of the fourth ray. This area was anesthetized with approximately 6cc of 1% Lidocaine. The limb was then exsanguinated with an Esmarch. The skin was incised with a 15 blade, approximately 1cm. The skin only was cut and the deeper tissue was dissected bluntly with a tenotomy scissor, avoiding passing nerve and venous structures. The fascia was penetrated and opened bluntly. A two-prong skin hook was placed under this proximal fascial edge. A series of hamate finders were used to identify and dilate the carpal tunnel. Synovial elevator was used to free synovial attachments to the underside of the transver se carpal ligament. My thumb was kept in the palm to eliazar the distal extent of the carpal tunnel and correctly position the hand. The Microaire endoscope was inserted without difficulty and without resistance. Excellent visualization showed horizontally running fibers of the transverse carpal ligament (TCL). The distal extent of the TCL was visualized and the end of the scope palpated with the thumb. The blade was elevated and withdrawn from distal to proximal. The TCL was split into two flaps. The endoscope was reinserted to confirm complete release and any remnant ligament was incised. The scope was withdrawn and the proximal aspect of the carpal tunnel was grossly inspected and appeared release with the median nerve visible. The antebrachial fascia at the level of the wrist was then freed from the overlying skin and then the underlying median nerve with blunt dissection. This was transected longitudinally for about 3cm proximal to the wrist incision. The wound was then irrigated with easy flow of irrigant distally and proximally. The incision was closed with a single 4-0 Nylon suture. The wound was dressed with Xeroform, Gauze, Kerlix and Garry. The tourniquet was deflated with the initial dressing and held with some pressure. Blood flow returned easily to all digits with capillary refill less than 2 seconds. The patient tolerated the procedure well and was returned to the Same Day Surgery area in a stable condition suffering no known complication.
== END 2022-09-12 15:03 | disposition home or self-care (01) ==
PROVIDERS: PCP Nurse Practitioner; Visit Provider Student in an Organized Health Care Education/Training Program
PROC: 01N54ZZ Release Median Nerve, Percutaneous Endoscopic Approach (ICD-10-PCS; CPT 29848; principal; 2022-09-12 13:15)
DX: G56.01 Carpal tunnel syndrome, right upper limb (principal); G47.33 Obstructive sleep apnea (adult) (pediatric)
CPT/HCPCS: 29848; J0690; J1100; J1885; J2250; J2405

== ENCOUNTER 2022-09-19 06:19 | Day surgery (SDC) | payer BC, SELFPAY ==
[2022-09-19 06:40] VITALS: BP 144/83; PULSE 61; RESP 16; TEMP 36.6; O2SAT 99
[2022-09-19] MEDS: Lactated Ringers 1,000 ML 80 ML IV (06:55)
--- NOTE | 2022-09-19 07:06 | W.ANESPRE ---
General Info Date of Service Date Performed: 09/19/22 Height: 6 ft Weight: 165.4 kg Body Mass Index (BMI): 49.4 Surgical Procedure: Operation Date: 09/19/22 07:40 Proposed Procedure Side Surgeon p Wrist ECTR Left Alan Golden MD Meds Allergies and Home Medications Allergies Allergy/AdvReac Type Severity Reaction Status Date / Time No Known Allergies Allergy Verified 09/19/22 06:39 Home Medication Medication Instructions Recorded multivitamin 1 ea PO DAILY 01/19/13 aspirin 81 mg tablet,delayed 81 mg PO DAILY 04/29/13 release vitamin B complex 1 ea PO DAILY 04/29/13 Vit D3 1 tab PO DAILY 04/19/15 calcium carbonate 500 mg calcium 1,250 mg PO DAILY 07/01/19 (1,250 mg) tablet (Calcium 500) cyanocobalamin (vitamin B-12) 1,000 mcg PO DAILY 01/25/21 1,000 mcg tablet omeprazole 20 mg tablet,delayed 20 mg PO DAILY 01/25/21 release semaglutide (weight loss) 0.25 0.25 mg (0.5 mL) subcut QWEEK #2 mL 05/30/22 mg/0.5 mL subcutaneous pen injector (Qing) atenolol 50 mg tablet 50 mg PO DAILY #90 tab-caps 07/05/22 bupropion HCl 100 mg tablet,12 hr 100 mg PO QAM #90 tabs 07/05/22 sustained-release (Wellbutrin SR) acetaminophen 500 mg tablet 1,000 mg PO TID #90 tabs 09/12/22 hydrocodone 5 mg-acetaminophen 325 1 tab PO Q6H PRN pain #4 tabs 09/12/22 mg tablet ibuprofen 600 mg tablet 600 mg PO TID PRN pain #90 tabs 09/12/22 Current Visit Medications: Current Medications Generic Name Dose Route Start Last Admin Trade Name Freq PRN Reason Stop Dose Admin Cefazolin Sodium 3,000 mg/ 100 mls @ 200 mls/hr 09/19/22 06:00 Sodium Chloride IVPB 09/19/22 16:00 PREOP BENIGNO Ringer's Solution 1,000 mls @ 80 mls/hr 09/19/22 06:00 09/19/22 06:55 IV 10/18/22 23:59 80 mls/hr INFUSION BENIGNO Administration IV Miscellaneous Supplies 1 each 09/19/22 06:00 Iv Access IV 10/18/22 23:59 DIRECTED BENIGNO Sodium Chloride 0 ml 09/19/22 06:00 Normal Saline Flush 10 Ml Syr IV 10/18/22 23:59 PRN PRN Sodium Chloride 0 ml 09/19/22 06:00 Normal Saline 10 Ml Vial IJ 10/18/22 23:59 DIRECTED PRN Sterile Water 0 ml 09/19/22 06:00 Water,Injection,Sterile 10 Ml Vial IJ 10/18/22 23:59 DIRECTED PRN PFSH Active Problems Active Problems: Problem Status Onset Code Morbid obesity E66.01 Diaphragmatic hernia 07/02/12 K44.9 Migraine 12/13/11 G43.909 Unspecified sleep apnea 12/13/11 G47.30 Umbilical hernia 12/13/11 K42.9 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 Benign adenomatous polyp of large intestine 05/09/19 D12.6 Digital mucous cyst of finger of right hand M67.441 Gastritis K29.70 GERD (gastroesophageal reflux disease) K21.9 Gastrocnemius strain, left S86.112A Right shoulder pain M25.511 Upper back pain M54.9 Tubular adenoma of colon D12.6 Infected insect bite W57.XXXA Right upper quadrant abdominal pain R10.11 Screening for cholesterol level Z13.220 Tingling of skin R20.2 Periodic heart flutter I49.8 Left shoulder pain M25.512 RAJEEV on CPAP G47.33, Z99.89 Radiculitis, thoracic M54.14 Hypertensive retinopathy of both eyes 09/26/21 H35.033 Shortness of breath on exertion R06.02 History of COVID-19 Z86.16 Apnea, transient R06.81 Decreased exercise tolerance R68.89 Tick bite W57.XXXA Elbow pain, left M25.522 Cellulitis of right leg L03.115 Lymphedema of right lower extremity I89.0 Ulnar neuropathy at elbow of left upper extremity G56.22 Bilateral carpal tunnel syndrome G56.03 Medical History Medical History Arm erythema (06/27/17) Body aches Cellulitis of lower extremity Hemoptysis Hiatal hernia EGD/colonoscopy 05/09/19 [facility] moderate High fever Left lower lobe pneumonia Wart left hand removed in office Dr Edward 07/29 Surgical History Surgical History Bariatric Sleeve, [facility] 01/2013 History of endoscopy upper History of placement of ear tubes Hx of colonoscopy L elbow and shoulder bone spur repair, Kirsty Ventral Hernia repair, [facility] 01/2013 pt denies/states he never had this done. Tobacco Smoking/Tobacco Use Status: Former Tobacco Use Passive smoking exposure: No Second hand exposure: No Alcohol Alcohol Intake: current Alcohol intake frequency: a few times a week Alcohol type: beer Substance Use Substance use: Never Substance use type: does not use Vital Signs and Lab Results Vital Signs Most Recent Vital Signs in EMR: Most Recent Vital Signs Temp Pulse Resp BP Pulse Ox 36.6 C 61 16 144/83 H 99 09/19/22 06:40 09/19/22 06:40 09/19/22 06:40 09/19/22 06:40 09/19/22 06:40 Lab Results Blood Type / Crossmatch: No Data to Display Complete Blood Count: No Data to Display Complete Metabolic Panel: No Data to Display Liver Function Panel: No Data to Display Coagulation Panel: No Data to Display Cardiac Panel: No Data to Display Arterial Blood Gas: No Data to Display Venous Blood Gas: No Data to Display Pancreas Panel: No Data to Display Thyroid Panel: No Data to Display Infectious Disease: No Data to Display Blood Cultures: No Data to Display Toxicology Panel: No Data to Display Imaging and Studies Imaging and Studies Study information below may be from another EMR and interpreted by another provider. Please see original notes in EMR for more complete details. EKG Summary: DATE/TIME OF SERVICE: 04/30/22 1616 : 1980PERFORMING LOCATION: ER APPROVED REPORT Exam: Resting ECG Reason for Exam: near syncope Patient Location: E HR:95 bpm ECG Measurements Heart Rate 95 AXIS GA 149 P 34 QRSd 105 QRS 28 QT 309 T225 QTc 389 Conclusion Sinus rhythm...normal P axis, V-rate 60- 99 Stress Test Summary: 02/21/22: Stress ECG Conclusion 1. The resting electrocardiogram showed left ventricular hypertrophy with repolarization abnormalities 2. Patient exercised on the Ken protocol and completed a workload of 10.16 METS, stopping due to leg fatigue 3. Mildly hypertensive blood pressure response to exercise. Normal heart rate response to exercise. The patient achieved 87% of predicted heart rate for age 4. At peak exercise there was an additional [address] depression in the inferior and anterolateral leads 5. The electrocardiographic portion of the test was nondiagnostic due to resting ST-T abnormalities 6. There were no significant dysrhythmias 7. Suggest repeat with imaging if clinically indicated Acosta Treadmill Score is 9 which is Low risk. Echocardiogram Summary: 05/02/22: [facility] [place]: EF 65%, Normal valves. Anesthesia Assessment and Plan Anesthesia History Personal History: No History of Anesthesia Complications Family History: No Family History of Anesthesia Complications Exercise Tolerance Exercise Tolerance: Metabolic Equivalents>4 Pertinent Negatives Pertinent Negatives: No Symptoms of GERD (Well controlled with medication ), No History of CVA/TIA and Other (Gastric sleeve 2012 - [facility]) Cardiac & Pulmonary Exam Cardiac Exam: Normal S1/S2 Heart Sounds Pulmonary Exam: Clear Bilateral Breath Sounds Implantable Cardiac Device Does patient have a Pacemaker or an ICD?: No Airway Exam Known Difficult Airway: No Mallampati Class: 2 Mouth Opening: Normal (> 3cm) Thyromental Distance: Greater than 3 cm Facial Hair: Full Morrell Neck Range of Motion: Full ROM Neck Circumference: Thick Teeth Condition: Normal Dentition ( No loose, broken teeth ) ASA Classification ASA Score: ASA 2 Emergency Case?: No NPO Status NPO Status: NPO Clears >2 hours, Solids >8 hours Anesthesia Plan Resuscitation Status: Full Code Anesthesia Technique: General Anesthesia Airway Planned: Natural Airway Monitors Used: Standard Monitors Preoperative Comments:: Negative nuclear stress test 2019 RAJEEV wears CPAP
[2022-09-19 07:09] VITALS: BMI 49.4
--- NOTE | 2022-09-19 07:11 | PDOC.DSDIS_ITS ---
Date of service: 09/19/22 Time of Service: 07:13 Discharge Plan Disposition Patient Disposition: Home Condition: Good Discharge Details Reason For Visit: Left Carpal Tunnel Syndrome Attending Provider: Alan Golden Primary Care Provider: Meche Rey Home Meds and New Rx's Prescriptions: Continued omeprazole 20 mg tablet,delayed release (DR/EC) 20 mg PO DAILY Wegovy 0.25 mg/0.5 mL pen injector 0.25 mg subcut QWEEK Qty: 2 0RF Label Comments: Pt hasnt started 09/11/22 Rx Instructions: administer weeks 1 through 4 of therapy bupropion HCl [Wellbutrin SR] 100 mg tablet sustained-release 12 hr 100 mg PO QAM Qty: 90 3RF Rx Instructions: Trial atenolol 50 mg tablet 50 mg PO DAILY Qty: 90 3RF Rx Instructions: for migraine prevention cyanocobalamin (vitamin B-12) 1,000 mcg tablet 1,000 mcg PO DAILY vitamin B complex 1 EACH tablet 1 ea PO DAILY Rx Instructions: [facility] aspirin 81 MG tablet,delayed release (DR/EC) 81 mg PO DAILY Rx Instructions: [facility] vit d3 1 tab PO DAILY Label Comments: pt unsure if 500IU or 1000 IU multivitamin 1 EACH capsule 1 ea PO DAILY calcium carbonate [Calcium 500] 500 mg calcium (1,250 mg) Tablet 1,250 mg PO DAILY acetaminophen 500 mg tablet 1,000 mg PO TID Qty: 90 0RF hydrocodone-acetaminophen 5-325 mg tablet 1 tab PO Q6H PRN (Reason: pain) Qty: 4 0RF ibuprofen 600 mg tablet 600 mg PO TID PRN (Reason: pain) Qty: 90 0RF Discharge Instructions Stand Alone Forms: [place] Tunnel Release Referrals: Alan Golden MD [ [facility] STAFF PHYSICIAN] - Activity:: Elevate Remove Dressings/Wound Care:: 48 hours Shower/Bathe:: 48 hours Diet:: As Tolerated Discharge Orders Discharge Orders: Discharge Order (Routine); Ordered 09/19/22 Ordered By: Alan Golden
[2022-09-19] MEDS: ceFAZolin 3,000 MG in Normal Saline 100 ML 200 MG IVPB (07:32)
[2022-09-19] MEDS: Lidocaine 1% Pres-Free W/EPI 1/200,000 10 ML VIAL (07:37)
[2022-09-19 07:58] VITALS: BP 114/74; PULSE 63; RESP 18; TEMP 36.4; O2SAT 97
--- NOTE | 2022-09-19 08:04 | W.ANESPOSTOP ---
Postoperative Evaluation Date, Time and Location Date Performed: 09/19/22 Time Performed: 08:05 Patient Location: Day Surgery Unit Vital Signs Most Recent Imported Vital Signs: Most Recent Vital Signs Temp Pulse Resp BP Pulse Ox 36.6 C 61 16 144/83 H 99 09/19/22 06:40 09/19/22 06:40 09/19/22 06:40 09/19/22 06:40 09/19/22 06:40 Most Recent Manually Entered Vital Signs: Adult Blood Pressure: 114/74 Heart Rate: 63 Respirations: 18 Oxygen Saturation (%): 97 Temperature (C): 36.4 C Pain Score (0-10 Scale): 0 Pain Score Most Recent Pain Score: Most Recent Pain Score Pain Level 0 09/19/22 06:40 Assessment Mental Status: Awake (Alert & Oriented to Patient Baseline) Airway and Respiratory Function: Patent airway with normal (patient baseline) respiratory exam Cardiovascular Function: Hemodynamically Stable Hydration Status: Adequately Hydrated Nausea & Vomiting: No Nausea or Vomiting Pain: Pt. Denies Any Pain Peripheral Nerve Block: Patient did not receive a nerve block
[2022-09-19 08:08] VITALS: BP 114/74; PULSE 63; RESP 18; TEMPC 36.4; O2SAT 97
[2022-09-19 08:26] VITALS: BP 114/78; PULSE 53; RESP 16; TEMP 36.5; O2SAT 97
--- NOTE | 2022-09-19 09:42 | W.PM.OP ---
Date of service: 09/19/22 Time of Service: 07:40 Operative Note Operative Note DATE OF PROCEDURE: 09/19/22 PRE-OP DIAGNOSIS: Left Carpal Tunnel Syndrome POST-OP DIAGNOSIS: same PROCEDURE: Left Endoscopic Carpal Tunnel Release SURGEON: Alan Golden ANESTHESIA TYPE: General:No Airway Refer to Anesthesia Record ESTIMATED BLOOD LOSS: 0 PATHOLOGY: none sent TOURNIQUET TIME: 6 COMPLICATIONS: None Patient was transported to: same day Patient's condition: stable Indications: I have seen Javad in clinic for symptoms of carpal tunnel syndrome. The numbness, tingling, and pain limited function. Clinical exam findings with nerve conduction tests confirmed the diagnosis of carpal tunnel syndrome. Nonoperative measures such as bracing, time, activity modifications had been tried but disability and pain persisted. I discussed carpal tunnel release with the patient. I reviewed the risks of the procedure to include, but not limited to, bleeding, infection, pain, stiffness, incomplete release, damage to nerves or vessels, persistent numbness, recurrence. Despite these risks, the patient elected to proceed. Findings: There was tightened carpal tunnel. This was dilated and released successfully with the endoscopic with increased space within the tunnel. The antebrachial fascia was released proximally freeing the median nerve at the wrist. Procedure Description: Javad was greeted in the preoperative holding area where the correct side was identified and marked. The consent was reviewed with the patient and signed. The history and physical was updated. All questions were answered. He was taken back to the operating room. The patient was placed into the supine position on the operating room table with the left arm on an arm board. A nonsterile tourniquet was placed high onto the arm. All bony prominences were well padded. Prophylactic antibiotics in the form of Cefazolin were administered. The left arm was then prepped with Chloraprep and draped in a standard fashion with stockinette and extremity drape. A timeout to confirm correct identity, side and site, procedure, allergies, anesthesia, and medical concerns was performed. The surgical site was marked in the volar wrist creases in line with the radial border of the fourth ray. This area was anesthetized with approximately 6cc of 1% Lidocaine. The limb was then exsanguinated with an Esmarch. The skin was incised with a 15 blade, approximately 1cm. The skin only was cut and the deeper tissue was dissected bluntly with a tenotomy scissor, avoiding passing nerve and venous structures. The fascia was penetrated and opened bluntly. A two-prong skin hook was placed under this proximal fascial edge. A series of hamate finders were used to identify and dilate the carpal tunnel. Synovial elevator was used to free synovial attachments to the underside of the transverse carpal ligament. My thumb was kept in the palm to eliazar the distal extent of the carpal tunnel and correctly position the hand. The Microaire endoscope was inserted without difficulty and without resistance. Excellent visualization showed horizontally running fibers of the transverse carpal ligament (TCL). The distal extent of the TCL was visualized and the end of the scope palpated with the thumb. The blade was elevated and withdrawn from distal to proximal. The TCL was split into two flaps. The endoscope was reinserted to confirm complete release and any remnant ligament was incised. The scope was withdrawn and the proximal aspect of the carpal tunnel was grossly inspected and appeared release with the median nerve visible. The antebrachial fascia at the level of the wrist was then freed from the overlying skin and then the underlying median nerve with blunt dissection. This was transected longitudinally for about 3cm proximal to the wrist incision. The wound was then irrigated with easy flow of irrigant distally and proximally. The incision was closed with a single 4-0 Nylon suture. The wound was dressed with Xeroform, Gauze, Kerlix and Garry. The tourniquet was deflated with the initial dressing and held with some pressure. Blood flow returned easily to all digits with capillary refill less than 2 seconds. The patient tolerated the procedure well and was returned to the Same Day Surgery area in a stable condition suffering no known complication.
== END 2022-09-19 08:39 | disposition home or self-care (01) ==
PROVIDERS: PCP Nurse Practitioner; Visit Provider Student in an Organized Health Care Education/Training Program
PROC: 01N54ZZ Release Median Nerve, Percutaneous Endoscopic Approach (ICD-10-PCS; CPT 29848; principal; 2022-09-19 07:30)
DX: G56.02 Carpal tunnel syndrome, left upper limb (principal); E66.01 Morbid (severe) obesity due to excess calories; Z68.42 Body mass index [BMI] 45.0-49.9, adult; G47.33 Obstructive sleep apnea (adult) (pediatric)
CPT/HCPCS: 29848; J0690; J1100; J1885; J2250; J2405

== ENCOUNTER 2022-10-26 08:46 | Outpatient (CLI) | payer BC, SELFPAY ==
[2022-10-26 08:16] LABS: Absolute Basophil Count 0.04 10^3/uL (0.0-0.2); Absolute Eosinophil Count 0.13 10^3/uL (0.0-0.7); Absolute Lymphocyte Count 1.96 10^3/uL (1.2-3.4); Absolute Monocyte Count 0.48 10^3/uL (0.1-0.8); Absolute Neutrophil Count 2.89 10^3/uL (1.2-6.7); Basophils % 0.7; Eosinophils % 2.4; HGB 15.6 g/dL (13.5-17.5); Lymphocytes % 35.6; MCH 28.2 pg (27.0-33.0); MCHC 32.5 % (32.0-36.0); MCV 87 fL (80-95); MPV 11.7 fL (8.0-11.0); Monocytes % 8.7; Neutrophils % 52.6; Platelet Count 195 10^3/uL (130-400); RBC 5.54 10^6/uL (4.36-5.78); RDW 12.6 % (11.8-14.1); RDW-SD 39.9 fL
[2022-10-26 08:56] LABS: ALT 29 U/L (16-63); AST 21 U/L (15-37); Albumin 4.2 g/dL (3.4-5.0); Alkaline Phosphatase 108 U/L (46-116); Anion Gap 7.5 mmol/L (3-11); BUN 23 mg/dL (7-18); Bilirubin, Total 0.8 mg/dL (0.2-1.0); CO2 30.5 mmol/L (21.0-32.0); Calcium 9.4 mg/dL (8.5-10.1); Calculated LDL 108 mg/dL (<100); Chloride 103 mmol/L (98-107); Cholesterol 192 mg/dL (<200); Estimated GFR 96.37 (mL/min/1.73m2); Glucose 91 mg/dL (74-106); HDL Cholesterol 75 mg/dL (40-60); Potassium 4.2 mmol/L (3.5-5.1); Sodium 141 mmol/L (136-145); Total Protein 7.9 g/dL (6.4-8.2); Triglyceride 46 mg/dL (<150); Vitamin B12 420 pg/mL (193-986)
[2022-10-26 08:57] LABS: Folate > 20.0 ng/mL (8.6-20.0)
[2022-10-26 09:04] LABS: Amylase 37 U/L (25-115); Lipase 58 U/L (73-393)
== END 2022-10-26 08:47 | disposition home or self-care (01) ==
LOC: LBO 08:47
PROVIDERS: PCP Nurse Practitioner; Visit Provider Nurse Practitioner Adult Health
DX: R53.83 Other fatigue (principal); E78.2 Mixed hyperlipidemia; R79.89 Other specified abnormal findings of blood chemistry; M25.512 Pain in left shoulder; M54.2 Cervicalgia; E53.8 Deficiency of other specified B group vitamins; K21.9 Gastro-esophageal reflux disease without esophagitis
CPT/HCPCS: 36415; 80053; 80061; 83690; 82150; 82607; 82746; 84443; 85025

== ENCOUNTER 2023-03-13 20:14 | Emergency (ER) | payer BC, SELFPAY ==
[2023-03-13 20:17] VITALS: BP 145/82; PULSE 63; RESP 20; TEMP 36.3; O2SAT 97
--- NOTE | 2023-03-13 21:23 | NUR.NOTE ---
Pt approached desk interviewer in waiting room and told them he did not want to wait any longer. Left w/o being seen.
== END 2023-03-13 21:56 | disposition left against medical advice (07) ==
PROVIDERS: PCP Nurse Practitioner
DX: Z53.21 Procedure and treatment not carried out due to patient leaving prior to being seen by health care provider (principal)

== ENCOUNTER → 2023-08-08 03:37 | Outpatient (CLI) | payer BC, SELFPAY ==
--- NOTE | 2023-08-08 06:30 | DI.US_ITS ---
Exam(s) US ABDOMEN LIMITED EXAM: US ABDOMEN LIMITED CLINICAL HISTORY: RUQ abdominal pain,EPIGASTRIC PAIN,R10.11 TECHNIQUE: Ultrasound abdomen performed using standard protocol. COMPARISON: CT CT ABDOMEN PELVIS W from 12/27/2018 US US ABDOMEN from 01/06/2021 FINDINGS: There is limited by the patient's body habitus. The liver is enlarged at 18 cm in length and shows i ncreased echogenicity and decreased through transmission. Findings are similar to the prior exam. P revious CT from 2019 show mildly hyperdense liver could be secondary to iron or copper deposition dis ease is.. The detail of the liver cannot be discerned. Large portions of the liver are not well eval uated. Underlying masses cannot be excluded. LIVER: Normal size and echogenicity. No focal liver lesions are seen. GALLBLADDER: No evidence of cholelithiasis. No evidence of wall thickening. No pericholecystic fluid identified. PAGAN'S SIGN: Negative. BILIARY SYSTEM: No intrahepatic or extrahepatic biliary ductal dilation. KIDNEYS: Kidneys are symmetric in size. No evidence of renal calculi. No evidence of hydronephrosis. No renal mass or cyst identified. PANCREAS: Normal where visualized. SPLEEN: Not enlarged. ABDOMINAL AORTA AND IVC: Visualized portions normal caliber. ASCITES: None seen. IMPRESSION: Limited evaluation of liver due to patient body habitus. Increased echogenicity could be secondary to fatty infiltration however a mildly dense liver was noted on 2019 CT. Clinical correlation recommend ed. DATA REPOSITORY:
--- NOTE | 2023-08-08 06:30 | DI.NM_ITS ---
Exam(s) NM HEPATOBILIARY CCK GRP EXAM: NM HEPATOBILIARY CCK GRP CLINICAL HISTORY: RUQ ABD PAIN,EPIGASTRIC PAIN,R10.11. TECHNIQUE: Injected dose: 5 mCi Tc-99 mebrofenin Initial dynamic images: 60 minutes Post-Gallbladder fillin.02 mcg/kg CCK intravenously over a 30min infusion. Additional images: 30 minute dynamic during CCK administration. COMPARISON: US US ABDOMEN LIMITED from 08/08/2023 FINDINGS: Normal hepatic transit time. Prompt excretion into the small bowel. Prompt excretion into the gallbladder. Gallbladder ejection fraction: 93 percent IMPRESSION: Normal gallbladder ejection fraction of 93 percent. SNM guidelines: Gallbladder visualization should be present by 3 hours. Delayed olypick-wz-juzqh aldridge sit beyond 60 min raises the suspicion for partial common bile duct (CBD) obstruction. Gallbladder ejection fraction <35% has a good correlation with acalculous disease (i.e., chronic acal culous cholecystitis, cystic duct syndrome, sphincter of Oddi disease).
[2023-08-08] MEDS: Sincalide 5 MCG VIAL 2.4 MCG IJ (12:26)
[2023-08-08] MEDS: Water,Injection,Sterile 10 ML VIAL IJ (12:28)
== END ==
PROVIDERS: PCP Nurse Practitioner; Visit Provider Nurse Practitioner
DX: R10.11 Right upper quadrant pain; R10.13 Epigastric pain
CPT/HCPCS: 78227; J2805; 76705

== ENCOUNTER 2023-08-31 09:50 | Outpatient (CLI) | payer BC, SELFPAY ==
[2023-08-31 09:19] LABS: Abs Immature Grans 0.02 10^3/uL (0.0-0.06); Absolute Basophil Count 0.03 10^3/uL (0.0-0.2); Absolute Eosinophil Count 0.21 10^3/uL (0.0-0.7); Absolute Lymphocyte Count 2.25 10^3/uL (1.2-3.4); Absolute Neutrophil Count 3.31 10^3/uL (1.2-6.7); Basophils % 0.5; Eosinophils % 3.2; HCT 44.9 % (40.0-50.0); Immature Grans % 0.3; Lymphocytes % 34.5; MCH 28.9 pg (27.0-33.0); MCHC 33.4 % (32.0-36.0); MCV 87 fL (80-95); MPV 11.3 fL (8.0-11.0); Monocytes % 10.7; Neutrophils % 50.8; Platelet Count 210 10^3/uL (130-400); RBC 5.19 10^6/uL (4.36-5.78); RDW 12.2 % (11.8-14.1); RDW-SD 38.8 fL; WBC 6.52 10^3/uL (4.4-10.8)
[2023-08-31 09:33] LABS: Hemoglobin A1C 5.6 % (<5.7)
[2023-08-31 09:35] LABS: ALT 33 U/L (16-63); AST 19 U/L (15-37); Albumin 3.6 g/dL (3.4-5.0); Alkaline Phosphatase 122 U/L (46-116); Anion Gap 4.5 mmol/L (3-11); BUN 14 mg/dL (7-18); Bilirubin, Total 0.7 mg/dL (0.2-1.0); CO2 28.5 mmol/L (21.0-32.0); CREATININE 0.9 mg/dL (0.70-1.30); Calcium 8.8 mg/dL (8.5-10.1); Calculated LDL 106 mg/dL (<100); Chloride 104 mmol/L (98-107); Cholesterol 182 mg/dL (<200); Estimated GFR 108.68 (mL/min/1.73m2); Glucose 105 mg/dL (74-106); HDL Cholesterol 65 mg/dL (40-60); Potassium 4.2 mmol/L (3.5-5.1); Sodium 137 mmol/L (136-145); Total Protein 7.2 g/dL (6.4-8.2); Triglyceride 55 mg/dL (<150)
== END 2023-08-31 09:51 | disposition home or self-care (01) ==
LOC: LBO 09:51
PROVIDERS: PCP Nurse Practitioner; Visit Provider Nurse Practitioner
DX: E66.01 Morbid (severe) obesity due to excess calories (principal); G47.33 Obstructive sleep apnea (adult) (pediatric); Z13.220 Encounter for screening for lipoid disorders; Z99.89 Dependence on other enabling machines and devices; J45.909 Unspecified asthma, uncomplicated
CPT/HCPCS: 36415; 80053; 80061; 83036; 85025

== ENCOUNTER → 2023-08-31 10:27 | Outpatient (CLI) | payer BC, SELFPAY ==
--- NOTE | 2023-08-31 10:00 | DI.RAD_ITS ---
Exam(s) XR ELBOW LT COMPLETE EXAM: XR ELBOW LT COMPLETE CLINICAL HISTORY: eval for changes 2' fall W19.XXXA, M79.89 Soft tissue disorders,. TECHNIQUE: 2D digital imaging was performed of the left elbow. Three images were obtained. AP, lat eral and oblique views were obtained. COMPARISON: CR XR ELBOW LT COMPLETE from 07/06/2021 FINDINGS: BONES: No acute fracture is present. There are marked bony hypertrophic changes in the elbow. JOINTS: There is stable alignment of the elbow. No joint effusion is seen. SOFT TISSUE: There is soft tissue swelling about the elbow. No radiopaque foreign bodies are seen. IMPRESSION: No acute fracture or dislocation. DATA REPOSITORY: RADIATION DOSE DELIVERED:
--- NOTE | 2023-08-31 10:00 | DI.US_ITS ---
Exam(s) US UPPER EXTREMITY VENOUS LT EXAM: US UPPER EXTREMITY VENOUS LT CLINICAL HISTORY: M79.89 Other specified soft tissue disorders , M25.60 Stiffness of specifie. TECHNIQUE: Ultrasound examination of the left upper extremity venous system(s) is performed using gr ayscale, color-flow, and spectral Doppler analysis. COMPARISON: US US UPPER EXTREMITY VENOUS LT from 05/02/2022 FINDINGS: Left Deep Veins:The visualized internal jugular and subclavian veins are patent. The axillary and br achial veins are patent and display normal color flow, augmentation and compressibility. Superficial Veins:The visualized cephalic, median cubital and basilic veins are patent and display no rmal color flow, augmentation and compressibility. Soft tissues: There is edema seen in the subcutaneous tissues. IMPRESSION: No evidence of a left upper extremity deep venous thrombosis. DATA REPOSITORY:
== END ==
PROVIDERS: PCP Nurse Practitioner; Visit Provider Student in an Organized Health Care Education/Training Program
DX: M79.89 Other specified soft tissue disorders; W19.XXXA Unspecified fall, initial encounter
CPT/HCPCS: 73080; 93971

== ENCOUNTER 2024-01-03 14:57 | Emergency (ER) | payer BC, SELFPAY ==
--- NOTE | 2024-01-03 15:00 | RT.EKG_ITS ---
APPROVED REPORT Exam: Resting ECG Reason for Exam: Chest Pain Patient Location: E HR:68 bpm ECG Measurements Heart Rate 68 AXIS NC 154 P 42 QRSd 107 QRS 32 QT 371 T 42 QTc 395 Conclusion Sinus rhythm...normal P axis, V-rate 60- 99
[2024-01-03 15:02] VITALS: BP 138/60; PULSE 73; RESP 15; TEMP 36.3; O2SAT 98
[2024-01-03 15:16] VITALS: RESP 18
--- NOTE | 2024-01-03 15:18 | ED.GENADUL_ITS ---
Discharge Plan Disposition Patient Disposition: Home Condition: Stable Discharge Details Clinical Impression: Chest discomfort Primary Care Provider: Meche Rey ED Provider: Nabil Gonzalez Home Meds and New Rx's Prescriptions: Continued omeprazole 20 mg tablet,delayed release (DR/EC) 20 mg PO DAILY atenolol 50 mg tablet 50 mg PO DAILY Qty: 90 3RF Rx Instructions: for migraine prevention cyanocobalamin (vitamin B-12) 1,000 mcg tablet 1,000 mcg PO DAILY bupropion HCl 150 mg tablet extended release 24 hr 150 mg PO QAM Qty: 90 3RF Rx Instructions: Dose increase 10/26/22 ibuprofen 600 mg tablet 600 mg PO TID PRN (Reason: pain) Qty: 90 3RF vitamin B complex 1 EACH tablet 1 ea PO DAILY Rx Instructions: [facility] aspirin 81 MG tablet,delayed release (DR/EC) 81 mg PO DAILY Rx Instructions: [facility] vit d3 1 tab PO DAILY Patient Comments: pt unsure if 500IU or 1000 IU multivitamin 1 EACH capsule 1 ea PO DAILY calcium carbonate [Calcium 500] 500 mg calcium (1,250 mg) Tablet 1,250 mg PO DAILY Discharge Instructions Additional Instructions: Your blood work and EKG did not show concerning findings today, there is no evidence of a heart attack. Follow-up with your primary care provider within 1 week Feel more ill, have severe worsening or persistent pain or severe shortness of breath return to the emergency department for reevaluation HPI General Date/Time Provider Initiated Documentation: 01/03/24 15:11 . Limitations to Documentation: no limitations . Information obtained by: patient . History of Present Illness 43 year old M presents to the emergency department with the chief complaint of chest burning, described as moderate, Quality is described as burning, and is localized to the chest. Patient reports no radiation. Patient started experiencing this hour(s) (10) and it has been now resolved. No relieving factors improve symptom(s), No exacerbating factors reported . Patient notes denies diaphoresis, fever/chills and shortness of breath. Patient did receive the following treatments prior to arrival, none Related Data Home Medications Medication Instructions Recorded Confirmed multivitamin 1 ea PO DAILY 01/19/13 01/03/24 aspirin 81 mg tablet,delayed 81 mg PO DAILY 04/29/13 01/03/24 release vitamin B complex 1 ea PO DAILY 04/29/13 01/03/24 Vit D3 1 tab PO DAILY 04/19/15 01/03/24 calcium carbonate 500 mg calcium 1,250 mg PO DAILY 07/01/19 01/03/24 (1,250 mg) tablet (Calcium 500) cyanocobalamin (vitamin B-12) 1,000 mcg PO DAILY 01/25/21 01/03/24 1,000 mcg tablet omeprazole 20 mg tablet,delayed 20 mg PO DAILY 01/25/21 01/03/24 release bupropion HCl 150 mg 24 hr tablet, 150 mg PO QAM #90 tabs 12/11/22 01/03/24 extended release ibuprofen 600 mg tablet 600 mg PO TID PRN pain #90 tabs 12/11/22 01/03/24 atenolol 50 mg tablet 50 mg PO DAILY #90 tab-caps 06/27/23 01/03/24 Previous Rx's Medication Instructions Recorded bupropion HCl 150 mg 24 hr tablet, 150 mg PO QAM #90 tabs 12/11/22 extended release ibuprofen 600 mg tablet 600 mg PO TID PRN pain #90 tabs 12/11/22 atenolol 50 mg tablet 50 mg PO DAILY #90 tab-caps 06/27/23 Allergies Allergy/AdvReac Type Severity Reaction Status Date / Time No Known Allergies Allergy Verified 01/03/24 15:18 General Stated Complaint: Chest Pain GLORIA: 2 Review of Systems All systems reviewed & are unremarkable except as noted in HPI and below Constitutional Constitutional: Denies chills, Denies fever(s) and Denies weakness Cardiovascular Cardiovascular: Reports chest pain and Denies dyspnea Respiratory Respiratory: Denies cough and Denies dyspnea Gastrointestinal Gastrointestinal: Denies abdominal pain, Denies nausea and Denies vomiting Genitourinary Genitourinary: Denies dysuria Musculoskeletal Musculoskeletal: Denies joint swelling Integumentary/Breasts Skin/Breast: Denies rash Neurologic Neurologic: Denies weakness Exam Const General: no acute distress Orientation: alert HENCO Head: normal to inspection Ears: external ears normal General nose exam: external nose normal Mouth: moist mucous membranes Eyes General: appearance normal, both eyes and all related structures Neck Neck: normal visual inspection Resp Effort & Inspection: normal respiratory effort and able to speak in complete sentences Cardio Jugular venous pressure: no JVD Rate: regular rate Heart Sounds: no murmurs GI Palpation: soft and nontender Skin General skin exam: no rashes or lesions noted Neuro General: patient alert and patient oriented x3 Extrem General: normal to inspection Psych Mental Status: mental status grossly normal Course Vital Signs Vital signs: Vital Signs Temperature 36.3 C L 01/03/24 15:02 Pulse 73 01/03/24 15:02 Respiratory Rate 15 01/03/24 15:02 Blood Pressure 138/60 01/03/24 15:02 Pulse Oximetry 98 01/03/24 15:02 Temperature 36.3 C L 01/03/24 15:02 Temperature Source Skin 01/03/24 15:02 Pulse 73 01/03/24 15:02 Respiratory Rate 18 01/03/24 15:16 Respiratory Effort Normal 01/03/24 15:16 Respiratory Depth Normal 01/03/24 15:16 Respiratory Pattern Normal 01/03/24 15:16 Blood Pressure 138/60 01/03/24 15:02 Pulse Oximetry 98 01/03/24 15:02 Oxygen Delivery Method Room Air 01/03/24 15:02 Oxygen Flow Rate 0 01/03/24 15:02 Pain Level 0 01/03/24 15:02 Medical Decision Making 3-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 He says it lasted a few minutes and went away, decided to come in now to get evaluation. He denies any fevers, difficulty breathing, he is alert and oriented speaking in full sentences in no distress on exam. He has no calf tenderness, no significant tachycardia or hypoxia. He has clear lung sounds, no murmur, no JVD. Unclear etiology of his pain but does not sound to be cardiac but will check a troponin. No tearing maty k pain to suggest dissection and equal peripheral pulses. No findings on history or exam to suggest PE, no evidence of DVT, no hypoxia, no tachycardia, no pleuritic chest pain and he is Wells low and PERC negative so doubt PE Labs unremarkable, do not feel delta troponin indicated given symptoms started well over 3 hours ago. He is still pain-free so do not feel he needs any further testing or admission. He is stable for discharge, advised to follow-up with his primary care provider within 1 week and return precautions given Differential Diagnosis Differential Diagnosis: GERD, chest wall pain, NSTEMI Lab Data Lab results reviewed: Yes I reviewed the patient's lab results. ECG Data Attestation: I personally reviewed and interpreted this ECG (s) as follows: Prior ECG tracings: available for review Interpretation: Sinus rhythm, rate of 68, PA 154, no STEMI Quality:SDOH Health Related Social Needs: No Data to Display PFSH All Active Problems (Updated 01/03/24 @ 16:00 by Nabil Gonzalez MD) Chest discomfort (Acute) Left arm swelling (Acute) Upper LFT arm, s/p fall, possible hematoma, but [ ] r/o DVT Ear problem (Acute) Sensorineural hearing loss (Acute) Retracted ear drum (Acute) Morbid obesity (Chronic) a. S/P gastric sleeve procedure, January 2013, [facility]. b. 150-pound weight loss in the last 12 months. Diaphragmatic hernia (Acute 07/02/12) 06/18/12 [facility] ON EGD Migraine (Acute 12/13/11) Unspecified sleep apnea (Acute 12/13/11) BIPAP, repeat sleep study 07/2013 s/p weight loss Umbilical hernia (Acute 12/13/11) Primary osteoarthritis of left elbow (Acute) 10/29/18 [facility]-Dr Falk .. Calcium deposits per pt report Gastritis (Acute) GERD (gastroesophageal reflux disease) (Chronic) With Gastritis Gastrocnemius strain, left (Acute) Right shoulder pain (Acute) Upper back pain (Acute) Burning pain, with radiating pain down both upper arms. Tubular adenoma of colon (Acute) [facility] Infected insect bite (Acute) Right upper quadrant abdominal pain (Acute) Screening for cholesterol level (Acute) Tingling of skin (Acute) Periodic heart flutter (Acute) 05/02/22 Echocardiogram - no evidence of valvular disease Left shoulder pain (Acute) RAJEEV on CPAP (Chronic) Needs machine eval, > 10 yrs old. Used regularly. BiPAP Radiculitis, thoracic (Acute) Hypertensive retinopathy of both eyes (Acute 09/26/21) Shortness of breath on exertion (Acute) History of COVID-19 (Acute) Oct 2021 (?), mild. Apnea, transient (Acute) Decreased exercise tolerance (Acute) Tick bite (Acute) Elbow pain, left (Acute) Chronic worsened, Declines meds, Cellulitis of right leg (Acute) Lymphedema of right lower extremity (Acute) Ulnar neuropathy at elbow of left upper extremity (Acute) Bilateral carpal tunnel syndrome (Acute) Medical History (Updated 01/03/24 @ 16:00 by Nabil Gonzalez MD) Digital mucous cyst of finger of right hand Right Index Finger s/p excision 07/01/2019 Benign adenomatous polyp of large intestine (05/09/19) 05/09/19-colonoscopy [facility],Dr Cal Alatorre left hand removed in office Dr Edward 07/29 Arm erythema (06/27/17) Hiatal hernia EGD/colonoscopy 05/09/19 LR moderate Cellulitis of lower extremity Body aches High fever Hemoptysis Left lower lobe pneumonia Surgical History History of endoscopy upper Hx of colonoscopy History of placement of ear tubes Ventral Hernia repair, [facility] 01/2013 pt denies/states he never had this done. L elbow and shoulder bone spur repair, Kirsty Bariatric Sleeve, [facility] 01/2013 Family History Father Hypertensive disorder, systemic arterial Obesity History of dissecting abdominal aortic aneurysm (AAA) repair Paternal Grandfather Prostate cancer Maternal Grandfather Diabetes Hypertension Paternal Grandmother Breast cancer Lung cancer Mother Hypertension Social History Smoking/Tobacco Use Status: Former Tobacco Use Quit Date: 10/08/03 Tobacco: How many years used: 6 Second Hand Exposure: No Smoking risk assessment performed?: Yes Alcohol Intake: current Alcohol Intake frequency: a few times a week Alcohol type: beer Drug use: Never Substance use type: does not use Adopted: No Caregiver/Support person: No Foster care: No Household members: spouse and children Housing: house Number of Children: 2 Communication Needs: Corrective Lenses Education Level: high school Do you need help understanding health information?: Often 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 Pets and animals: Yes Pets and animals: dog(s) Sexually active: Yes Do you think of yourself as: straight/heterosexual Current gender identity: male What is your relationship status?: How often do you talk on the phone with friends or family?: three or more times per week How often do you get together with friends or relatives?: three or more times per week How often do you attend lutheran or samaritan services?: 1-3 times per year Panel score (0-1 are the most socially isolated patients): 2 What type of physical activity do you participate in: other Details: climbing in and out of truck/up and down ladder w/work-[employer] Duration: 15-30 minutes/day Frequency: 5-6 times per week Special gabriel needs: No Seatbelt use: sometimes Helmet use: Yes (sometimes) Helmet use: sometimes Drive intox or ride w/intox refrigerated national truck driver: No Water heater temp set <120 deg: Yes Working smoke detector in home: Yes Fire extinguisher in home: Yes Carbon monox detector in home: Yes Do you feel safe at home: Yes Do you feel safe in your relationship?: Yes
[2024-01-03 15:32] LABS: Abs Immature Grans 0.02 10^3/uL (0.0-0.06); Absolute Basophil Count 0.04 10^3/uL (0.0-0.2); Absolute Eosinophil Count 0.17 10^3/uL (0.0-0.7); Absolute Lymphocyte Count 2.03 10^3/uL (1.2-3.4); Absolute Monocyte Count 0.52 10^3/uL (0.1-0.8); Absolute Neutrophil Count 3.34 10^3/uL (1.2-6.7); Basophils % 0.7; Eosinophils % 2.8; HCT 48.8 % (40.0-50.0); HGB 15.7 g/dL (13.5-17.5); Immature Grans % 0.3; Lymphocytes % 33.2; MCH 28.3 pg (27.0-33.0); MCHC 32.2 % (32.0-36.0); MCV 88 fL (80-95); Monocytes % 8.5; Neutrophils % 54.5; Platelet Count 179 10^3/uL (130-400); RBC 5.55 10^6/uL (4.36-5.78); RDW 13.6 % (11.8-14.1); RDW-SD 44.1 fL; WBC 6.12 10^3/uL (4.4-10.8)
[2024-01-03 15:50] LABS: ALT 39 U/L (16-63); AST 20 U/L (15-37); Albumin 3.6 g/dL (3.4-5.0); Alkaline Phosphatase 113 U/L (46-116); Anion Gap 6.4 mmol/L (3-11); BUN 19 mg/dL (7-18); Bilirubin, Total 0.5 mg/dL (0.2-1.0); CO2 30.6 mmol/L (21.0-32.0); Calcium 8.9 mg/dL (8.5-10.1); Chloride 104 mmol/L (98-107); Estimated GFR 95.77 (mL/min/1.73m2); Glucose 118 mg/dL (74-106); Potassium 3.8 mmol/L (3.5-5.1); Sodium 141 mmol/L (136-145); Total Protein 7.3 g/dL (6.4-8.2); Troponin I < 50 ng/L (< or =60)
== END 2024-01-03 16:23 | disposition home or self-care (01) ==
PROVIDERS: Emergency Provider Emergency Medicine; PCP Nurse Practitioner
DX: R07.9 Chest pain, unspecified (principal); Z79.82 Long term (current) use of aspirin; Z98.84 Bariatric surgery status; Z87.891 Personal history of nicotine dependence
CPT/HCPCS: 36415; 80053; 93005; 99284; 83735; 84484; 85025; 93010

== ENCOUNTER 2024-01-25 09:11 | Day surgery (SDC) | payer BC, SELFPAY ==
--- NOTE | 2024-01-24 16:28 | PDOC.DSDIS_ITS ---
Date of service: 01/25/24 Time of Service: 11:39 Discharge Plan Disposition Patient Disposition: Home Condition: Good Discharge Details Reason For Visit: Screening colonoscopy Attending Provider: Lj Edward Primary Care Provider: Meche Rey Home Meds and New Rx's Prescriptions: Continued omeprazole 20 mg tablet,delayed release (DR/EC) 20 mg PO DAILY atenolol 50 mg tablet 50 mg PO DAILY Qty: 90 3RF Rx Instructions: for migraine prevention cyanocobalamin (vitamin B-12) 1,000 mcg tablet 1,000 mcg PO DAILY bupropion HCl 150 mg tablet extended release 24 hr 150 mg PO QAM Qty: 90 3RF Rx Instructions: Dose increase 10/26/22 ibuprofen 600 mg tablet 600 mg PO TID PRN (Reason: pain) Qty: 270 3RF vitamin B complex 1 EACH tablet 1 ea PO DAILY Rx Instructions: [facility] aspirin 81 MG tablet,delayed release (DR/EC) 81 mg PO DAILY Rx Instructions: [facility] vit d3 1 tab PO DAILY Patient Comments: pt unsure if 500IU or 1000 IU multivitamin 1 EACH capsule 1 ea PO DAILY calcium carbonate [Calcium 500] 500 mg calcium (1,250 mg) Tablet 1,250 mg PO DAILY Discontinued bisacodyl [Dulcolax (bisacodyl)] 5 mg tablet,delayed release (DR/EC) 5 mg PO ONCE Qty: 4 0RF Rx Instructions: Take per colonoscopy instructions provided by ordering providers office polyethylene glycol 3350 17 gram/dose powder 17 g PO ONCE Qty: 238 0RF Rx Instructions: Take per colonoscopy instructions provided by ordering providers office Discharge Instructions Additional Instructions: Freddie, We were able to complete your colonoscopy today without any issues. You did great. Hopefully with a comfortable procedure. I did not see any signs of tumors, polyps, or any other abnormalities in your large intestine. Because of the nature of the polyps that you had removed previously, I still recommend a 5- year screening interval for your next test. Incidentally, as best I could tell, your prostate felt normal to me today. However, I would recommend that you follow-up with your primary care physician as prostate screening antigen (PSA) may be an important test given your family history. If you have any questions at all, please do not hesitate to call or ask at any time. 1. If tolerated, consume a soft, low fiber diet for 1-2 days. 2. Do not drive, drink alcohol, operate machinery, make critical decisions, or do activities that require coordination or balance for 24 hours. 3. Because air was put into your colon during the procedure, expelling air from your rectum (passing gas or farting) is normal. 4. You may not have a bowel movement for 1-3 days because of the colonoscopy prep. This is normal. 5. Go directly to the emergency room if you notice any of the following: Develop chills (warm to touch), or if you have a thermometer and your temperature is above 101 Difficulty breathing or difficultly swallowing Persistent vomiting Severe abdominal pain, other than gas cramps Severe chest pain Black, tarry stools Any bleeding ? exceeding one tablespoon 6. Call your physician if the site where your intravenous was started becomes red, swollen, painful, and warm to touch. 7. Your physician has reviewed your pre-procedure medications. Please continue to take those medications as previously ordered. You will be given specific information/education regarding any changes to your medications before leaving. Activity:: Activity as Tolerated Diet:: As Tolerated Discharge Orders Discharge Orders: Discharge Order (Routine); Ordered 01/24/24 Ordered By: Lj Edward DS: Diagnosis Discharge Diagnosis (1) Encounter for screening colonoscopy: Status: Acute Asessment and Plan: Negative screening colonoscopy today; based on previous tubular adenoma, recommend 5-year screening interval follow-up
--- NOTE | 2024-01-24 16:29 | COLE_ITS ---
Date of service: 01/25/24 Time of Service: 11:40 Colonoscopy Report Date of procedure: 01/25/24 Pre-op diagnosis general: Screening colonoscopy Post-op diagnosis procedure note: other (Negative screening colonoscopy) Procedure: Colonoscopy Surgeon: Lj Edward Anesthesia Type: General:No Airway Estimated blood loss (mL): 0 Pathology: none sent Complications: None Disposition: same day Indications: The heart is a 43-year-old male with a history of adenomatous polyps who needs his next screening colonoscopy Prep: Miralax/Dulcolax Procedure Start Time: :04 Procedure End Time: : Retraction Time: 11 Findings: Normal screening colonoscopy Procedure Description: After the induction of monitored anesthetic care, and with the patient in left lateral decubitus position, I began by performing an external anorectal exam.? Perineum and skin were normal, as was the anal verge.? There was no evidence of external hemorrhoids.? Next, I performed a digital rectal exam.? I did not appreciate any abnormal findings.? Next, I advanced a colonoscope into the rectal vault.? I performed retroflexion.? This was normal.? Using insufflation, I then advanced the colonoscope beyond the rectal folds and into the sigmoid colon before advancing towards the cecum.? The scope was noted to be in the cecum by identification of the ileocecal valve and appendiceal orifice.? I then began withdrawing the colonoscope using repeated irrigation as necessary for full evaluation of the colonic mucosa. ?Once the scope was withdrawn to the level of the rectum, great care was taken to examine portions of the rectal folds.? I did not see any signs of tumors, polyps, or any other worrisome pathology. Finally, the scope was withdrawn and the patient was brought to the same-day surgery recovery unit as the anesthetic wore off. ?The findings and instructions were shared with the patient prior to discharge. [place] Bowel Prep [place] Bowel Prep Right Colon: 2 Left Colon: 3 Transverse Colon: 2 Total Score: 7
--- NOTE | 2024-01-25 06:17 | W.ANESPRE ---
General Info Date of Service Date Performed: 01/25/24 Height: 6 ft 1 in Weight: 172.819 kg Body Mass Index (BMI): 50.2 Surgical Procedure: Operation Date: 01/25/24 10:20 Proposed Procedure Side Surgeon oliver Edward MD Meds Allergies and Home Medications Allergies Allergy/AdvReac Type Severity Reaction Status Date / Time No Known Allergies Allergy Verified 01/25/24 09:28 Home Medication Medication Instructions Recorded multivitamin 1 ea PO DAILY 01/19/13 aspirin 81 mg tablet,delayed 81 mg PO DAILY 04/29/13 release vitamin B complex 1 ea PO DAILY 04/29/13 Vit D3 1 tab PO DAILY 04/19/15 calcium carbonate (Calcium 500) 1,250 mg PO DAILY 07/01/19 cyanocobalamin (vitamin B-12) 1,000 mcg PO DAILY 01/25/21 1,000 mcg tablet omeprazole 20 mg tablet,delayed 20 mg PO DAILY 01/25/21 release atenolol 50 mg tablet 50 mg PO DAILY #90 tab-caps 06/27/23 bupropion HCl 150 mg 24 hr tablet, 150 mg PO QAM #90 tabs 01/07/24 extended release ibuprofen 600 mg tablet 600 mg PO TID PRN pain #270 tabs 01/07/24 Current Visit Medications: Current Medications Generic Name Dose Route Start Last Admin Trade Name Freq PRN Reason Stop Dose Admin Hyoscyamine Sulfate 0.125 mg 01/24/24 16:30 Hyoscyamine 0.125 Mg Sl/Oral/Chew SL 02/23/24 16:29 DIRECTED PRN Ringer's Solution 1,000 mls @ 80 mls/hr 01/25/24 06:00 IV 02/05/24 23:59 INFUSION BENIGNO IV Miscellaneous Supplies 1 each 01/25/24 06:00 Iv Access IV 02/05/24 23:59 DIRECTED BENIGNO Ondansetron HCl 4 mg 01/24/24 16:30 Ondansetron 4 Mg/2 Ml Vial IVP 02/23/24 16:29 Q4H PRN PRN Nausea / Vomiting Sodium Chloride 0 ml 01/25/24 06:00 Normal Saline Flush 10 Ml Syr IV 02/05/24 23:59 PRN PRN Sodium Chloride 0 ml 01/25/24 06:00 Normal Saline 10 Ml Vial IJ 02/05/24 23:59 DIRECTED PRN Sterile Water 0 ml 01/25/24 06:00 Water,Injection,Sterile 10 Ml Vial IJ 02/05/24 23:59 DIRECTED PRN [facility] Active Problems Active Problems: Problem Status Onset Code Encounter for screening colonoscopy Z12.11 Chest discomfort R07.89 Left arm swelling M79.89 Ear problem H93.90 Sensorineural hearing loss H90.5 Retracted ear drum H73.899 Morbid obesity E66.01 Diaphragmatic hernia 07/02/12 K44.9 Migraine 12/13/11 G43.909 Unspecified sleep apnea 12/13/11 G47.30 Umbilical hernia 12/13/11 K42.9 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 Gastritis K29.70 GERD (gastroesophageal reflux disease) K21.9 Gastrocnemius strain, left S86.112A Right shoulder pain M25.511 Upper back pain M54.9 Tubular adenoma of colon D12.6 Infected insect bite W57.XXXA Right upper quadrant abdominal pain R10.11 Screening for cholesterol level Z13.220 Tingling of skin R20.2 Periodic heart flutter I49.8 Left shoulder pain M25.512 RAJEEV on CPAP G47.33, Z99.89 Radiculitis, thoracic M54.14 Hypertensive retinopathy of both eyes 09/26/21 H35.033 Shortness of breath on exertion R06.02 History of COVID-19 Z86.16 Apnea, transient R06.81 Decreased exercise tolerance R68.89 Tick bite W57.XXXA Elbow pain, left M25.522 Cellulitis of right leg L03.115 Lymphedema of right lower extremity I89.0 Ulnar neuropathy at elbow of left upper extremity G56.22 Bilateral carpal tunnel syndrome G56.03 Medical History Medical History Digital mucous cyst of finger of right hand Right Index Finger s/p excision 07/01/2019 Benign adenomatous polyp of large intestine (05/09/19) 05/09/19-colonoscopy [facility],Dr Cal Alatorre left hand removed in office Dr Edward 07/29 Arm erythema (06/27/17) Hiatal hernia EGD/colonoscopy 05/09/19 LR moderate Cellulitis of lower extremity Body aches High fever Hemoptysis Left lower lobe pneumonia Surgical History Surgical History History of endoscopy upper Hx of colonoscopy History of placement of ear tubes Ventral Hernia repair, [facility] 01/2013 pt denies/states he never had this done. L elbow and shoulder bone spur repair, Kirsty Bariatric Sleeve, [facility] 01/2013 Tobacco Smoking/Tobacco Use Status: Former Tobacco Use Passive smoking exposure: No Second hand exposure: No Alcohol Alcohol Intake: current Alcohol intake frequency: 0-2 drinks per day Alcohol type: beer Substance Use Substance use: Never Substance use type: does not use Vital Signs and Lab Results Vital Signs Most Recent Vital Signs in EMR: Temp Pulse Resp BP Pulse Ox 36.2 C L 63 16 144/93 H 97 01/25/24 09:45 01/25/24 09:45 01/25/24 09:45 01/25/24 09:45 01/25/24 09:45 Lab Results Blood Type / Crossmatch: No Data to Display Complete Blood Count: White Blood Count 6.12 10^3/uL (4.4-10.8) 01/03/24 15:20 Red Blood Count 5.55 10^6/uL (4.36-5.78) 01/03/24 15:20 Hemoglobin 15.7 g/dL (13.5-17.5) 01/03/24 15:20 Hematocrit 48.8 % (40.0-50.0) 01/03/24 15:20 Platelet Count 179 10^3/uL (130-400) 01/03/24 15:20 Complete Metabolic Panel: Sodium 141 mmol/L (136-145) 01/03/24 15:20 Potassium 3.8 mmol/L (3.5-5.1) 01/03/24 15:20 Chloride 104 mmol/L (98-107) 01/03/24 15:20 Carbon Dioxide 30.6 mmol/L (21.0-32.0) 01/03/24 15:20 BUN 19 mg/dL (7-18) H 01/03/24 15:20 Creatinine 1.0 mg/dL (0.70-1.30) 01/03/24 15:20 Est GFR (CKD-EPI 2020) 95.77 (mL/min/1.73m2) 01/03/24 15:20 Magnesium 2.0 mg/dL (1.8-2.4) 01/03/24 15:20 Calcium 8.9 mg/dL (8.5-10.1) 01/03/24 15:20 Albumin 3.6 g/dL (3.4-5.0) 01/03/24 15:20 Glucose 118 mg/dL (74-106) H 01/03/24 15:20 Liver Function Panel: Alanine Aminotransferase (ALT/SGPT) 39 U/L (16-63) 01/03/24 15:20 Aspartate Amino Transf (AST/SGOT) 20 U/L (15-37) 01/03/24 15:20 Coagulation Panel: No Data to Display Cardiac Panel: Troponin I < 50 ng/L (< or =60) 01/03/24 Arterial Blood Gas: No Data to Display Venous Blood Gas: No Data to Display Pancreas Panel: No Data to Display Thyroid Panel: No Data to Display Infectious Disease: No Data to Display Blood Cultures: No Data to Display Toxicology Panel: No Data to Display Imaging and Studies Imaging and Studies Study information below may be from another EMR and interpreted by another provider. Please see original notes in EMR for more complete details. EKG Summary: 12/29: sinus. Stress Test Summary: 02/21/22: Stress ECG Conclusion 1. The resting electrocardiogram showed left ventricular hypertrophy with repolarization abnormalities 2. Patient exercised on the Ken protocol and completed a workload of 10.16 METS, stopping due to leg fatigue 3. Mildly hypertensive blood pressure response to exercise. Normal heart rate response to exercise. The patient achieved 87% of predicted heart rate for age 4. At peak exercise there was an additional [address] depression in the inferior and anterolateral leads 5. The electrocardiographic portion of the test was nondiagnostic due to resting ST-T abnormalities 6. There were no significant dysrhythmias 7. Suggest repeat with imaging if clinically indicated [place] Treadmill Score is 9 which is Low risk. Echocardiogram Summary: 05/02/22: [facility] [place]: EF 65%, Normal valves. Anesthesia Assessment and Plan Anesthesia History Personal History: No History of Anesthesia Complications Family History: No Family History of Anesthesia Complications Exercise Tolerance Exercise Tolerance: Metabolic Equivalents>4 Cardiac & Pulmonary Exam Cardiac Exam: Normal S1/S2 Heart Sounds Pulmonary Exam: Clear Bilateral Breath Sounds Implantable Cardiac Device Does patient have a Pacemaker or an ICD?: No Airway Exam Known Difficult Airway: No Mallampati Class: 2 Mouth Opening: Normal (> 3cm) Thyromental Distance: Greater than 3 cm Neck Range of Motion: Full ROM Neck Circumference: Thick Teeth Condition: Normal Dentition ( No loose, broken teeth ) ASA Classification ASA Score: ASA 3 Emergency Case?: No NPO Status NPO Status: NPO Clears >2 hours, Solids >8 hours Anesthesia Plan Resuscitation Status: Full Code Anesthesia Technique: General Anesthesia Airway Planned: Natural Airway Monitors Used: Standard Monitors Preoperative Comments:: 43 yo male colo. Sig PMHx: RAJEEV, GERD (well controlled), BMI 50, former smoker. occ EtOH. Previous Anes: - ECTR, midaz, ketamine, prop, natural airway, no issues. - ECTR, dex, midaz, ketamine, no issues. Currently with migraine, toradol 30 mg was given by Matty in [facility].
[2024-01-25 09:45] VITALS: BP 144/93; PULSE 63; RESP 16; TEMP 36.2; O2SAT 97
[2024-01-25] MEDS: Lactated Ringers 1,000 ML 80 ML IV (09:48)
[2024-01-25 10:08] VITALS: BMI 50.2
[2024-01-25 11:25] VITALS: BP 136/71; PULSE 68; RESP 16; TEMP 36.3; O2SAT 99
--- NOTE | 2024-01-25 11:43 | W.ANESPOSTOP ---
Postoperative Evaluation Date, Time and Location Date Performed: 01/25/24 Time Performed: 11:43 Patient Location: Day Surgery Unit Vital Signs Most Recent Imported Vital Signs: Most Recent Vital Signs Temp Pulse Resp BP Pulse Ox 36.3 C L 68 16 136/71 99 01/25/24 11:25 01/25/24 11:25 01/25/24 11:25 01/25/24 11:25 01/25/24 11:25 Pain Score Most Recent Pain Score: Most Recent Pain Score Pain Level 0 01/25/24 11:25 Assessment Mental Status: Awake (Alert & Oriented to Patient Baseline) Airway and Respiratory Function: Patent airway with normal (patient baseline) respiratory exam Cardiovascular Function: Hemodynamically Stable Hydration Status: Adequately Hydrated Nausea & Vomiting: No Nausea or Vomiting Pain: Pt. Denies Any Pain Peripheral Nerve Block: Patient did not receive a nerve block
[2024-01-25 11:54] VITALS: BP 129/73; PULSE 62; RESP 16; TEMP 36.3; O2SAT 99
== END 2024-01-25 11:57 | disposition home or self-care (01) ==
LOC: SUR 09:11
PROVIDERS: PCP Nurse Practitioner; Visit Provider Surgery
PROC: 0DJD8ZZ Inspection of Lower Intestinal Tract, Via Natural or Artificial Opening Endoscopic (ICD-10-PCS; CPT 45378; principal; 2024-01-25 10:15)
DX: Z12.11 Encounter for screening for malignant neoplasm of colon (principal); Z86.010 Personal history of colon polyps; G47.33 Obstructive sleep apnea (adult) (pediatric); K21.9 Gastro-esophageal reflux disease without esophagitis
CPT/HCPCS: 45378; J2001; J2704

== ENCOUNTER 2025-01-05 20:14 | Emergency (ER) | payer BC, SELFPAY ==
--- NOTE | 2025-01-05 20:15 | RT.EKG_ITS ---
APPROVED REPORT Exam: Resting ECG Reason for Exam: chest pain Patient Location: E HR:68 bpm ECG Measurements Heart Rate 68 AXIS NM 139 P 8 QRSd 106 QRS 23 QT 395 T -1 QTc 421 Conclusion Sinus rhythm...normal P axis, V-rate 60- 99
[2025-01-05 20:17] VITALS: BP 180/99; PULSE 77; TEMP 36.2; O2SAT 98
--- NOTE | 2025-01-05 20:46 | W.ED.GENAD ---
Discharge Plan Disposition Patient Disposition: Home Condition: Stable Discharge Details Clinical Impression: Chest pain Primary Care Provider: Meche Rey ED Provider: Nabil Gonzalez Home Meds and New Rx's Prescriptions: Continued omeprazole 20 mg tablet,delayed release (DR/EC) 20 mg PO DAILY cyanocobalamin (vitamin B-12) 1,000 mcg tablet 1,000 mcg PO DAILY bupropion HCl 150 mg tablet extended release 24 hr 150 mg PO QAM Qty: 90 3RF Rx Instructions: Dose increase 10/26/22 ibuprofen 600 mg tablet 600 mg PO TID PRN (Reason: pain) Qty: 270 3RF atenolol 50 mg tablet 50 mg PO DAILY Qty: 90 3RF Rx Instructions: for migraine prevention vitamin B complex 1 EACH tablet 1 ea PO DAILY Rx Instructions: [facility] aspirin 81 MG tablet,delayed release (DR/EC) 81 mg PO DAILY Rx Instructions: [facility] vit d3 1 tab PO DAILY Patient Comments: pt unsure if 500IU or 1000 IU multivitamin 1 EACH capsule 1 ea PO DAILY naproxen sodium 220 mg capsule 220 mg PO ONCE Discharge Instructions Additional Instructions: Your blood work did not show any concerning findings at this time. Try make sure you are drinking plenty of fluids. If your symptoms are continuing I recommend following up with your primary care provider. Make sure you are drinking plenty of fluids to stay hydrated. If you feel more ill or have new symptoms such as high fevers return to the emergency department for evaluation HPI General Mode of arrival: ambulatory. Date/Time Provider Initiated Documentation: 01/05/25 20:15. Limitations to Documentation: no limitations. Information obtained by: patient. History of Present Illness 44 year old M presents to the emergency department with the chief complaint of chest pain, described as moderate, Quality is described as sharp, and is localized to the chest. Patient reports no radiation. Patient started experiencing this week(s) (1) and it has been intermittent. No relieving factors improve symptom(s), No exacerbating factors reported . Patient notes shortness of breath. Patient did receive the following treatments prior to arrival, none Related Data Home Medications ?Medication ?Instructions ?Recorded ?Confirmed multivitamin 1 ea PO DAILY 01/19/13 01/05/25 aspirin 81 mg tablet,delayed 81 mg PO DAILY 04/29/13 01/05/25 release vitamin B complex 1 ea PO DAILY 04/29/13 01/05/25 Vit D3 1 tab PO DAILY 04/19/15 01/05/25 cyanocobalamin (vitamin B-12) 1,000 mcg PO DAILY 01/25/21 01/05/25 1,000 mcg tablet omeprazole 20 mg tablet,delayed 20 mg PO DAILY 01/25/21 01/05/25 release bupropion HCl 150 mg 24 hr tablet, 150 mg PO QAM #90 tabs 01/07/24 01/05/25 extended release ibuprofen 600 mg tablet 600 mg PO TID PRN pain #270 tabs 01/07/24 01/05/25 atenolol 50 mg tablet 50 mg PO DAILY #90 tab-caps 06/17/24 01/05/25 naproxen sodium 220 mg capsule 220 mg PO ONCE 01/05/25 01/05/25 Previous Rx's ?Medication ?Instructions ?Recorded bupropion HCl 150 mg 24 hr tablet, 150 mg PO QAM #90 tabs 01/07/24 extended release ibuprofen 600 mg tablet 600 mg PO TID PRN pain #270 tabs 01/07/24 atenolol 50 mg tablet 50 mg PO DAILY #90 tab-caps 06/17/24 Allergies Allergy/AdvReac Type Severity Reaction Status Date / Time No Known Allergies Allergy Verified 01/05/25 20:23 General Stated Complaint: Chest Pain GLORIA: 3 Review of Systems All systems reviewed & are unremarkable except as noted in HPI and below Constitutional Constitutional: Denies chills, Denies fever(s) and Denies weakness Cardiovascular Cardiovascular: Reports chest pain and Reports dyspnea Respiratory Respiratory: Denies cough and Reports dyspnea Gastrointestinal Gastrointestinal: Denies abdominal pain, Denies nausea and Denies vomiting Neurologic Neurologic: Denies weakness Psychiatric Psychiatric: Denies depression Exam Const General: no acute distress Orientation: alert [facility] Head: normal to inspection Ears: external ears normal General nose exam: external nose normal Mouth: moist mucous membranes Eyes General: appearance normal, both eyes and all related structures Neck Neck: normal visual inspection Resp Effort & Inspection: normal respiratory effort and able to speak in complete sentences Auscultation: clear to auscultation bilaterally Cardio Jugular venous pressure: no JVD Rate: regular rate Heart Sounds: no murmurs Skin General skin exam: no rashes or lesions noted Neuro General: patient alert and patient oriented x3 Extrem General: normal to inspection Psych Mental Status: mental status grossly normal Course Vital Signs Vital signs: Vital Signs Temperature 36.2 C L 01/05/25 20:17 Pulse 77 01/05/25 20:17 Blood Pressure 180/99 H 01/05/25 20:17 Pulse Oximetry 98 01/05/25 20:17 Temperature 36.2 C L 01/05/25 20:17 Temperature Source Oral 01/05/25 20:17 Pulse 77 01/05/25 20:17 Blood Pressure 180/99 H 01/05/25 20:17 Blood Pressure Position Sitting 01/05/25 20:17 Pulse Oximetry 98 01/05/25 20:17 Oxygen Delivery Method Room Air 01/05/25 20:17 Oxygen Flow Rate 0 01/05/25 20:17 Medical Decision Making 44-year-old male with a history of high blood pressure comes in with 1 week of sharp anterior chest pain, feeling like his face is flushed and difficulty breathing. Denies any vomiting, diaphoresis, severe abdominal pain. No tearing back pain. He has well-appearing on exam speaking full sentences. He has clear lung sounds, no JVD, no leg edema or calf tenderness. Abdomen is soft and nontender. He has no proximal or tachycardia. Unclear etiology for symptoms, is not tachycardic hypoxic and some signs of DVT on exam so I doubt DVT and he is no tearing back pain so doubt dissection. Will check CBC, CMP, troponin and reassess. Labs unremarkable, does have a mild elevation in BUN which could be from dehydration he states he is not drink much water during the day. Says symptoms for over a week so I do not feel further troponins are indicated. Given reassuring workup I feel he stable for discharge and follow-up with his PCP, return precautions given Differential Diagnosis Differential Diagnosis: Anemia, NSTEMI, electrolyte abnormality Lab Data Lab results reviewed: Yes I reviewed the patient's lab results. ECG Data Attestation: I personally reviewed and interpreted this ECG (s) as follows: Prior ECG tracings: available for review Interpretation: sinus rate of 68 no stemi Quality:SDOH Health Related Social Needs: No Data to Display PFSH All Active Problems (Updated 01/05/25 @ 21:15 by Nabil Gonzalez MD) Chest pain (Acute) Fullness in right ear (Acute) Right foot infection (Acute) Obesity, morbid, BMI 50 or higher (Acute) Arthritis of left elbow (Acute) Encounter for screening colonoscopy (Acute) Ear problem (Acute) Sensorineural hearing loss (Acute) Retracted ear drum (Acute) Morbid obesity (Chronic) a. S/P gastric sleeve procedure, January 2013, [facility]. b. 150-pound weight loss in the last 12 months. Diaphragmatic hernia (Acute 07/02/12) 06/18/12 [facility] ON EGD Migraine (Acute 12/13/11) Unspecified sleep apnea (Acute 12/13/11) BIPAP, repeat sleep study 07/2013 s/p weight loss Umbilical hernia (Acute 12/13/11) Primary osteoarthritis of left elbow (Acute) 10/29/18 [facility]-Dr Falk .. Calcium deposits per pt report Gastritis (Acute) GERD (gastroesophageal reflux disease) (Chronic) With Gastritis Gastrocnemius strain, left (Acute) Right shoulder pain (Acute) Upper back pain (Acute) Burning pain, with radiating pain down both upper arms. Tubular adenoma of colon (Acute) [facility] Infected insect bite (Acute) Right upper quadrant abdominal pain (Acute) Screening for cholesterol level (Acute) Tingling of skin (Acute) Periodic heart flutter (Acute) 05/02/22 Echocardiogram - no evidence of valvular disease Left shoulder pain (Acute) RAJEEV on CPAP (Chronic) Needs machine eval, > 10 yrs old. Used regularly. BiPAP Radiculitis, thoracic (Acute) Hypertensive retinopathy of both eyes (Acute 09/26/21) Shortness of breath on exertion (Acute) History of COVID-19 (Acute) Oct 2021 (?), mild. Apnea, transient (Acute) Decreased exercise tolerance (Acute) Tick bite (Acute) Elbow pain, left (Acute) Chronic worsened, Declines meds, Cellulitis of right leg (Acute) Lymphedema of right lower extremity (Acute) Ulnar neuropathy at elbow of left upper extremity (Acute) Bilateral carpal tunnel syndrome (Acute) Medical History (Updated 01/05/25 @ 21:15 by Nabil Gonzalez MD) Digital mucous cyst of finger of right hand Right Index Finger s/p excision 07/01/2019 Benign adenomatous polyp of large intestine (05/09/19) 05/09/19-colonoscopy [facility],Dr Cal Alatorre left hand removed in office Dr Edward 07/29 Arm erythema (06/27/17) Hiatal hernia EGD/colonoscopy 05/09/19 [facility] moderate Cellulitis of lower extremity Body aches High fever Hemoptysis Left lower lobe pneumonia Surgical History History of endoscopy upper Hx of colonoscopy (~01/2024) History of placement of ear tubes Ventral Hernia repair[facility] pt denies/states he never had this done. L elbow and shoulder bone spur repair, [facility] Bariatric Sleeve, [facility]2013 Family History Father Hypertensive disorder, systemic arterial Obesity History of dissecting abdominal aortic aneurysm (AAA) repair Paternal Grandfather Prostate cancer Maternal Grandfather Diabetes Hypertension Paternal Grandmother Breast cancer Lung cancer Mother Hypertension Social History Smoking/Tobacco Use Status: Former Tobacco Use Quit Date: 10/08/03 Tobacco: How many years used: 6 Second Hand Exposure: No Smoking risk assessment performed?: Yes Alcohol Intake: current Alcohol Intake frequency: 0-2 drinks per day Alcohol type: beer Drug use: Never Substance use type: does not use Adopted: No Caregiver/Support person: No Foster care: No Household members: spouse and children Housing: house Number of Children: 2 Communication Needs: Corrective Lenses Education Level: high school Do you need help understanding health information?: Often 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 Pets and animals: Yes Pets and animals: dog(s) Sexually active: Yes Do you think of yourself as: straight/heterosexual Current gender identity: male What is your relationship status?: How often do you talk on the phone with friends or family?: three or more times per week How often do you get together with friends or relatives?: three or more times per week How often do you attend religious or sikh services?: 1-3 times per year Panel score (0-1 are the most socially isolated patients): 2 What type of physical activity do you participate in: other Details: climbing in and out of truck/up and down ladder w/work-[employer] Duration: 15-30 minutes/day Frequency: 5-6 times per week Special gabriel needs: No Seatbelt use: sometimes Helmet use: Yes (sometimes) Helmet use: sometimes Drive intox or ride w/intox motor pool driver: No Water heater temp set <120 deg: Yes Working smoke detector in home: Yes Fire extinguisher in home: Yes Carbon monox detector in home: Yes Do you feel safe at home: Yes Do you feel safe in your relationship?: Yes
[2025-01-05 21:02] LABS: BE (Venous) 3 mmol/L (-2-3); HCO3 (Venous) 27 mmol/L (23-28); O2 Sat (Venous) 96 %; TCO2 (Venous) 24 mmol/L (24-29); pCO2 (Venous) 41 mmHg (41-51); pH (Venous) 7.43 (7.31-7.41); pO2 (Venous) 73 mmHg
[2025-01-05 21:05] LABS: Abs Immature Grans 0.02 10^3/uL (0.0-0.06); Absolute Basophil Count 0.04 10^3/uL (0.0-0.2); Absolute Eosinophil Count 0.19 10^3/uL (0.0-0.7); Absolute Lymphocyte Count 2.27 10^3/uL (1.2-3.4); Absolute Monocyte Count 0.62 10^3/uL (0.1-0.8); Absolute Neutrophil Count 4.06 10^3/uL (1.2-6.7); Basophils % 0.6 %; Eosinophils % 2.6 %; HCT 47.3 % (40.0-50.0); HGB 15.7 g/dL (13.5-17.5); Immature Grans % 0.3 %; Lymphocytes % 31.5 %; MCH 29.1 pg (27.0-33.0); MCHC 33.2 % (32.0-36.0); MCV 88 fL (80-95); MPV 11.7 fL (8.0-11.0); Monocytes % 8.6 %; Neutrophils % 56.4 %; Platelet Count 196 10^3/uL (130-400); RBC 5.39 10^6/uL (4.36-5.78); RDW 13.1 % (11.8-14.1); RDW-SD 42.3 fL
[2025-01-05] MEDS: Normal Saline 1,000 ML 1000 ML IV (21:07)
[2025-01-05 21:22] LABS: ALT 51 U/L (16-63); AST 24 U/L (15-37); Albumin 3.9 g/dL (3.4-5.0); Alkaline Phosphatase 122 U/L (46-116); Anion Gap 10.3 mmol/L (3-11); BUN 24 mg/dL (7-18); Bilirubin, Total 0.5 mg/dL (0.2-1.0); CO2 27.7 mmol/L (21.0-32.0); CREATININE 1.1 mg/dL (0.70-1.30); Calcium 9.1 mg/dL (8.5-10.1); Chloride 103 mmol/L (98-107); Estimated GFR 84.89 (mL/min/1.73m2); Glucose 104 mg/dL (74-106); Lipase 25 U/L (<78); Magnesium 1.8 mg/dL; Potassium 4.1 mmol/L (3.5-5.1); Sodium 141 mmol/L (136-145); Total Protein 7.4 g/dL (6.4-8.2); Troponin I 6 ng/L (<or=76)
[2025-01-05 21:44] LABS: COVID-19 PCR Negative (Negative); Influenza A PCR Negative (Negative); Influenza B PCR Negative (Negative); RSV PCR Negative (Negative)
[2025-01-05 21:45] LABS: Source Nasopharynx
== END 2025-01-05 22:10 | disposition home or self-care (01) ==
LOC: ER 22:08
PROVIDERS: Emergency Provider Emergency Medicine; PCP Nurse Practitioner
DX: R07.9 Chest pain, unspecified (principal); Z87.891 Personal history of nicotine dependence
CPT/HCPCS: 80053; 82805; 83690; 87637; 93005; 96360; 99284; 83735; 84484; 85025; 93010

== ENCOUNTER 2025-08-07 10:43 | Outpatient (CLI) | payer BC, SELFPAY ==
[2025-08-07 09:01] LABS: Abs Immature Grans 0.01 10^3/uL (0.0-0.06); HCT 46.4 % (40.0-50.0); HGB 15.0 g/dL (13.5-17.5); Immature Grans % 0.2 %; MCH 28.6 pg (27.0-33.0); MCHC 32.3 % (32.0-36.0); MCV 89 fL (80-95); MPV 11.5 fL (8.0-11.0); Platelet Count 212 10^3/uL (130-400); RBC 5.24 10^6/uL (4.36-5.78); RDW 12.2 % (11.8-14.1); RDW-SD 39.8 fL; WBC 5.62 10^3/uL (4.4-10.8)
[2025-08-07 10:25] LABS: ALT 58 U/L (16-63); AST 30 U/L (15-37); Albumin 3.8 g/dL (3.4-5.0); Alkaline Phosphatase 119 U/L (46-116); Anion Gap 6.6 mmol/L (3-11); BUN 21 mg/dL (7-18); Bilirubin, Total 0.4 mg/dL (0.2-1.0); CO2 31.4 mmol/L (21.0-32.0); Calcium 9.1 mg/dL (8.5-10.1); Chloride 103 mmol/L (98-107); Ferritin 65 ng/mL (26-388); Glucose 70 mg/dL (74-106); Potassium 3.8 mmol/L (3.5-5.1); Sodium 141 mmol/L (136-145); Total Protein 7.7 g/dL (6.4-8.2)
[2025-08-07 11:03] LABS: Lipase 27 U/L (<78)
[2025-08-07 21:56] LABS: Hepatitis A Antibody IgM Negative (Negative); Hepatitis C Ab w Rflx HCV PCR Negative (Negative)
[2025-08-10 13:23] LABS: Copper, Serum 139 mcg/dL (73-129)
== END 2025-08-07 10:44 | disposition home or self-care (01) ==
LOC: LBO 10:44
PROVIDERS: PCP Nurse Practitioner; Visit Provider Nurse Practitioner Adult Health
DX: R10.13 Epigastric pain (principal); K76.0 Fatty (change of) liver, not elsewhere classified; R19.7 Diarrhea, unspecified
CPT/HCPCS: 36415; 80053; 82525; 83690; 86704; 86709; 86803; 87340; 82728; 85025

== ENCOUNTER 2025-08-18 10:51 | Outpatient (CLI) | payer BC, SELFPAY | END 2025-08-18 10:52 | disposition home or self-care (01) | LOC: LBO 10:52 | PROVIDERS: PCP Nurse Practitioner; Visit Provider Nurse Practitioner Adult Health | DX: E83.00 Disorder of copper metabolism, unspecified (principal); K76.0 Fatty (change of) liver, not elsewhere classified | CPT/HCPCS: 36415; 82390 ==

== ENCOUNTER 2025-08-20 07:50 | Outpatient (REF) | payer BC, SELFPAY ==
[2025-08-24 20:55] LABS: Copper 24 Hr, U 28 mcg/24 h (9-71)
== END 2025-08-20 07:51 | disposition home or self-care (01) ==
LOC: LBN 07:50
PROVIDERS: PCP Nurse Practitioner; Visit Provider Nurse Practitioner Adult Health
DX: E83.00 Disorder of copper metabolism, unspecified (principal); K76.0 Fatty (change of) liver, not elsewhere classified
CPT/HCPCS: 81050; 82525